=== PATIENT | male | born 1960 | race Caucasian/White ===

== ENCOUNTER 2016-06-08 22:46 | Emergency (ER) | payer SELFPAY ==
[~2016-06-08] VITALS: Ht 170.2 cm; Wt 81.6 kg
[2016-06-08] MEDS ORDERED: KETOROLAC TROMETHAMINE 30 MG/ML SYRINGE. IV ONE (23:00)
[2016-06-08] MEDS ORDERED: IV NORMAL SALINE 1000ML BAG 1,000 ML IV ONE (23:00)
[2016-06-08] MEDS ORDERED: ONDANSETRON PF 4 MG/2 ML VIAL. IV ONE (23:00)
[2016-06-08 23:03] VITALS: BP 145/80
[2016-06-08 23:07] LABS: BASO # 0.1 x10^3/uL (0.0-0.2); BASO % 1 % (0-3); EOS % 3 % (0-3); HEMATOCRIT 41.6 % (39.0-53.0); HEMOGLOBIN 13.7 g/dL (13.0-17.5); LYMPH # 2.7 x10^3/uL (1.0-4.8); LYMPH % 32 % (24-48); MEAN CORPUSCULAR HEMOGLOBIN 31 pg (25-35); MEAN CORPUSCULAR HGB CONC 33 g/dL (31-37); MEAN CORPUSCULAR VOLUME 93 fL (79-100); MONO % 13 % (0-9); NEUT % 51 % (31-73); PLATELET COUNT 195 x10^3/uL (140-400); RED BLOOD COUNT 4.47 x10^6/uL (4.30-5.70); WHITE BLOOD COUNT 8.6 x10^3/uL (4.0-11.0)
[2016-06-08 23:18] LABS: CALCIUM 8.6 mg/dL (8.5-10.1); CREATININE 1.1 mg/dL (0.7-1.3); GFR 69.2; POTASSIUM 3.6 mmol/L (3.5-5.1)
--- NOTE | 2016-06-08 23:38 | PHYS DOC ---
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 EMS was notified and administered a full aspirin and a nitroglycerin and his symptoms are improved significantly. He states he has had a cardiac workup before but has not been done recently. He denies taking any medications. He is a previous smoker. Currently he denies any complaints. Review of Systems Review of Systems Constitutional: Denies fever or chills [] Eyes: Denies change in visual acuity, redness, or eye pain [] HENT: Denies nasal congestion or sore throat [] Respiratory: Denies cough or shortness of breath [] Cardiovascular: No additional information not addressed in HPI [] GI: Denies abdominal pain, nausea, vomiting, bloody stools or diarrhea [] : Denies dysuria or hematuria [] Musculoskeletal: Denies back pain or joint pain [] Integument: Denies rash or skin lesions [] Neurologic: Denies headache, focal weakness or sensory changes [] Endocrine: Denies polyuria or polydipsia [] Current Medications Current Medications Current Medications Medications (Trade) Dose Ordered Sig/[facility] Start Time Stop Time Status Last Admin Dose Admin Ketorolac Tromethamine (Toradol) 30 mg 1X ONCE 06/08/16 23:00 06/08/16 23:01 UNV Ondansetron HCl (Zofran) 4 mg 1X ONCE 06/08/16 23:00 06/08/16 23:01 UNV Sodium Chloride (Iv Sodium Chloride 0.9% 1000ml Bag) 1,000 ml @ 1,000 mls/hr 1X ONCE 06/08/16 23:00 06/08/16 23:59 UNV Allergies Allergies Allergies Coded Allergies Type Severity Reaction Last Updated Verified codeine Allergy Severe hives 04/27/13 Yes Physical Exam Physical Exam Constitutional: Well developed, well nourished, no acute distress, non-toxic appearance. [] HENT: Normocephalic, atraumatic, bilateral external ears normal, oropharynx moist, no oral exudates, nose normal. [] Eyes: PERRLA, EOMI, conjunctiva normal, no discharge. [] Neck: Normal range of motion, no tenderness, supple, no stridor. [] Cardiovascular:Heart rate regular rhythm, no murmur [] Lungs & Thorax: Bilateral breath sounds clear to auscultation [] Abdomen: Bowel sounds normal, soft, no tenderness, no masses, no pulsatile masses. [] Skin: Warm, dry, no erythema, no rash. [] Back: No tenderness, no CVA tenderness. [] Extremities: No tenderness, no cyanosis, no clubbing, ROM intact, no edema. [] Neurologic: Alert and oriented X 3, normal motor function, normal sensory function, no focal deficits noted. [] Psychologic: Affect normal, judgement normal, mood normal. [] Current Patient Data Vital Signs Vital Signs Date Time Temp Pulse Resp B/P Pulse Ox O2 Delivery O2 Flow Rate FiO2 06/08/16 23:03 97.9 67 20 145/80 96 Room Air 97.9 Lab Values Laboratory Tests Test 06/08/16 22:57 06/09/16 01:49 White Blood Count 8.6x10^3/uL (4.0-11.0) Red Blood Count 4.47x10^6/uL (4.30-5.70) Hemoglobin 13.7g/dL (13.0-17.5) Hematocrit 41.6% (39.0-53.0) Mean Corpuscular Volume 93fL (79-100) Mean Corpuscular Hemoglobin 31pg (25-35) Mean Corpuscular Hemoglobin Concent 33g/dL (31-37) Red Cell Distribution Width 13.0% (11.5-14.5) Platelet Count 195x10^3/uL (140-400) Neutrophils (%) (Auto) 51% (31-73) Lymphocytes (%) (Auto) 32% (24-48) Monocytes (%) (Auto) 13% (0-9) H Eosinophils (%) (Auto) 3% (0-3) Basophils (%) (Auto) 1% (0-3) Neutrophils # (Auto) 4.4x10^3uL (1.8-7.7) Lymphocytes # (Auto) 2.7x10^3/uL (1.0-4.8) Monocytes # (Auto) 1.1x10^3/uL (0.0-1.1) Eosinophils # (Auto) 0.2x10^3/uL (0.0-0.7) Basophils # (Auto) 0.1x10^3/uL (0.0-0.2) Sodium Level 142mmol/L (136-145) Potassium Level 3.6mmol/L (3.5-5.1) Chloride Level 107mmol/L (98-107) Carbon Dioxide Level 29mmol/L (21-32) Anion Gap 6 (6-14) Blood Urea Nitrogen 13mg/dL (8-26) Creatinine 1.1mg/dL (0.7-1.3) Estimated GFR (Cockcroft-Gault) 69.2 Glucose Level 99mg/dL (70-99) Calcium Level 8.6mg/dL (8.5-10.1) Troponin I Quantitative < 0.017ng/mL (0.000-0.055) POC Troponin I 0.00ng/ml (<0.08) Laboratory Tests 06/08/16 22:57 Laboratory Tests 06/08/16 22:57 EKG EKG EKG as interpreted by me shows a sinus rhythm rhythm with a rate of 68 bpm. There are no acute ST findings. Radiology/Procedures Radiology/Procedures One view of the chest as interpreted by me does not demonstrate an acute cardiopulmonary process. Course & Med Decision Making Course & Med Decision Making Pertinent Labs and Imaging studies reviewed. (See chart for details) This 56-year-old male continues to be chest pain-free in the department. Because his symptoms are resolved with the nitroglycerin dose I offered the patient admission for continued chest pain workup. Patient is declining this admission at this time. Patient is willing to stay for 2 sets of cardiac enzymes. The second cardiac enzyme panel will be drawn at approximately 0100. If negative, I'll be discharging him home with strict instructions to follow-up with cardiology clinic in the next several days to have his routine stress test and return if he develops any worsening of his chest pain. Patient is acknowledging the risks of going home and not receiving the full workup. Patient was observed in the department for approximately 4 hours and had no return of his symptoms. A second set of cardiac enzymes was negative. I discussed the need for the patient to obtain outpatient stress test in the next several days. He is very agreeable to this. He will be discharged without incident. Dione Disclaimer Dione Disclaimer This electronic medical record was generated, in whole or in part, using a voice recognition dictation system. Departure Departure Impression: Primary Impression: Chest pain Disposition: HOME, SELF-CARE Admitting Physician: Other Condition: STABLE Referrals: NO PCP (PCP) Patient Instructions: Chest Pain (Nonspecific), [id number] Additional Instructions: Please follow up with the cardiology clinic at [phone] in the morning to schedule a stress test. Return to the ER if you develop any worsening of your chest pain or if it should return. MAURI STEVEN DO Jun 08, 2016 23:39
--- NOTE | 2016-06-09 07:00 | EKG ---
[facility] [address] [place] [address] Test Date: 2016-06-08 Test Time: 22:51:02 Pat Name: SAM WATTERS Department: Room: Gender: M [employer]: : 1960 Requested By: MAURI STEVEN Order Number: [id number] Reading MD: Measurements Intervals [place] Rate: 68 P: WA: QRS: 12 QRSD: 90 T: 4 QT: 412 QTc: 438 Interpretive Statements IRREGULAR RHYTHM, NO P-WAVE FOUND QRS(T) CONTOUR ABNORMALITY CONSIDER ANTEROLATERAL MYOCARDIAL DAMAGE POSSIBLY ABNORMAL ECG RI6.01 No previous ECG available for comparison
--- NOTE | 2016-06-09 09:16 | RAD ---
INDICATION: chest pain COMPARISON: 02/10/2009 FINDINGS: Single view of chest obtained. No focal airspace consolidation. Mediastinal contour is unremarkable. No gross osseous destructive lesion. IMPRESSION: No focal airspace consolidation or edema.
== END 2016-06-09 02:12 | disposition home or self-care (01) ==
LOC: ER 22:46
DX: R07.89 Other chest pain (principal); R42 Dizziness and giddiness; E11.9 Type 2 diabetes mellitus without complications; F17.200 Nicotine dependence, unspecified, uncomplicated; Z86.19 Personal history of other infectious and parasitic diseases; Z88.5 Allergy status to narcotic agent
CPT/HCPCS: 36415; 71010; 80048; 84484; 85027; 93005; 99285-25

== ENCOUNTER 2017-03-10 19:33 | Emergency (ER) | payer SELFPAY ==
[~2017-03-10] VITALS: Ht 170.2 cm; Wt 81.6 kg
[2017-03-10] MEDS ORDERED: IV NORMAL SALINE 1000ML BAG 1,000 ML IV ONE (20:00)
[2017-03-10] MEDS ORDERED: ONDANSETRON PF 4 MG/2 ML VIAL. IV ONE (20:00)
--- NOTE | 2017-03-10 20:07 | PHYS DOC ---
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 Patient denies any fever or hematemesis. He is also complaining of dental abscess on the right upper gum that he noted this morning. Denies any trismus. Patient's also complaining of low back pain rated as mild described as throbbing that also began yesterday. Denies pain radiating to bilateral lower extremities. Denies any loss of bowel bladder function, denies any injury. Denies any urgency frequency or hematuria. Review of Systems Review of Systems Constitutional: See history of present illness Eyes: Denies change in visual acuity, redness, or eye pain [] HENT: Reports right upper gum dental abscess. Denies nasal congestion or sore throat [] Respiratory: Denies cough or shortness of breath [] Cardiovascular: No additional information not addressed in HPI [] GI: Nausea and vomiting. Denies abdominal pain, bloody stools or diarrhea [] : Denies dysuria or hematuria [] Musculoskeletal: Denies back pain or joint pain [] Integument: Denies rash or skin lesions [] Neurologic: Denies headache, focal weakness or sensory changes [] All other systems were reviewed and found to be within normal limits, except as documented in this note. Current Medications Current Medications Current Medications Medications (Trade) Dose Ordered Sig/Kristy Start Time Stop Time Status Last Admin Dose Admin Ceftriaxone Sodium 50 ml @ 100 mls/hr 1X ONCE 03/10/17 20:00 03/10/17 20:29 DC 03/10/17 20:44 100 MLS/HR Ondansetron HCl (Zofran) 4 mg 1X ONCE 03/10/17 20:00 03/10/17 20:01 DC 03/10/17 20:44 4 MG Sodium Chloride 1,000 ml @ 1,000 mls/hr 1X ONCE 03/10/17 20:00 03/10/17 20:59 DC 03/10/17 20:43 1,000 MLS/HR Allergies Allergies Allergies Coded Allergies Type Severity Reaction Last Updated Verified codeine Allergy Severe hives 04/27/13 Yes Physical Exam Physical Exam Constitutional: Well developed, well nourished, no acute distress, non-toxic appearance. [] HENT: Normocephalic, atraumatic, bilateral external ears normal, oropharynx moist, no oral exudates, nose normal. [] Obvious swelling noted on the right upper cheek. Missing multiple teeth. Gum on the right upper molars and premolars is swollen. There are approx. 3 broken teeth left on the upper right gum. There is gum erythema, this no fluctuance to the gum. Eyes: PERRLA, EOMI, conjunctiva normal, no discharge. [] Neck: Normal range of motion, no tenderness, supple, no stridor. [] Cardiovascular:Heart rate regular rhythm, no murmur [] Lungs & Thorax: Bilateral breath sounds clear to auscultation [] Abdomen: Bowel sounds normal, soft, no tenderness, no masses, no pulsatile masses. [] Skin: Warm, dry, no erythema, no rash. [] Back: No tenderness, no CVA tenderness. [] Extremities: No tenderness, no cyanosis, no clubbing, ROM intact, no edema. [] Neurologic: Alert and oriented X 3, normal motor function, normal sensory function, no focal deficits noted. [] Psychologic: Affect normal, judgement normal, mood normal. [] Current Patient Data Vital Signs Vital Signs Date Time Temp Pulse Resp B/P (MAP) Pulse Ox O2 Delivery O2 Flow Rate FiO2 03/10/17 21:17 18 18 163/85 (111) 98 Room Air 03/10/17 19:43 98.3 98.3 Lab Values Laboratory Tests Test 03/10/17 20:10 03/10/17 20:33 Urine Collection Type Unknown Urine Color Yellow Urine Clarity Cloudy Urine pH 6.5 Urine Specific [place] 1.020 Urine Protein Negative mg/dL (NEG-TRACE) Urine Glucose (UA) Negative mg/dL (NEG) Urine Ketones (Stick) Trace mg/dL (NEG) Urine Blood Negative (NEG) Urine Nitrite Negative (NEG) Urine Bilirubin Negative (NEG) Urine Urobilinogen Dipstick 1.0 mg/dL (0.2 mg/dL) Urine Leukocyte Esterase Trace (NEG) Urine RBC 3-5 /HPF (0-2) Urine WBC Occ /HPF (0-4) Urine Squamous Epithelial Cells Few /LPF Urine Bacteria Few /HPF (0-FEW) Urine Mucus Mod /LPF White Blood Count 17.3 x10^3/uL (4.0-11.0) H Red Blood Count 5.23 x10^6/uL (4.30-5.70) Hemoglobin 16.0 g/dL (13.0-17.5) Hematocrit 47.9 % (39.0-53.0) Mean Corpuscular Volume 92 fL (79-100) Mean Corpuscular Hemoglobin 31 pg (25-35) Mean Corpuscular Hemoglobin Concent 34 g/dL (31-37) Red Cell Distribution Width 13.4 % (11.5-14.5) Platelet Count 250 x10^3/uL (140-400) Neutrophils (%) (Auto) 82 % (31-73) H Lymphocytes (%) (Auto) 9 % (24-48) L Monocytes (%) (Auto) 9 % (0-9) Eosinophils (%) (Auto) 0 % (0-3) Basophils (%) (Auto) 1 % (0-3) Neutrophils # (Auto) 14.2 x10^3uL (1.8-7.7) H Lymphocytes # (Auto) 1.5 x10^3/uL (1.0-4.8) Monocytes # (Auto) 1.5 x10^3/uL (0.0-1.1) H Eosinophils # (Auto) 0.0 x10^3/uL (0.0-0.7) Basophils # (Auto) 0.1 x10^3/uL (0.0-0.2) Sodium Level 137 mmol/L (136-145) Potassium Level 3.6 mmol/L (3.5-5.1) Chloride Level 101 mmol/L (98-107) Carbon Dioxide Level 28 mmol/L (21-32) Anion Gap 8 (6-14) Blood Urea Nitrogen 13 mg/dL (8-26) Creatinine 1.0 mg/dL (0.7-1.3) Estimated GFR (Cockcroft-Gault) 77.3 BUN/Creatinine Ratio 13 (6-20) Glucose Level 102 mg/dL (70-99) H Calcium Level 9.5 mg/dL (8.5-10.1) Total Bilirubin 0.8 mg/dL (0.2-1.0) Aspartate Amino Transferase (AST) 22 U/L (15-37) Alanine Aminotransferase (ALT) 38 U/L (16-63) Alkaline Phosphatase 157 U/L (46-116) H Total Protein 8.2 g/dL (6.4-8.2) Albumin 3.7 g/dL (3.4-5.0) Albumin/Globulin Ratio 0.8 (1.0-1.7) L Lipase 58 U/L (73-393) L Laboratory Tests 03/10/17 20:33 Laboratory Tests 03/10/17 20:33 EKG EKG [] Radiology/Procedures Radiology/Procedures [] Course & Med Decision Making Course & Med Decision Making Pertinent Labs and Imaging studies reviewed. (See chart for details) Patient is in the ED with nausea vomiting as well as a dental abscess. CBC was 17.3 with a left shift which I believe is coming from the dental abscess, patient has no abdominal pain. CMP with nothing really acute. Discharged with amoxicillin for 10 days. He is also complaining of low back pain. Urine analysis is negative for any acute findings. Discharged with cyclobenzaprine. Follow-up with PCP in 1-2 weeks. Dragon Disclaimer Dragon Disclaimer This electronic medical record was generated, in whole or in part, using a voice recognition dictation system. Departure Departure Impression: Primary Impression: Dental abscess Additional Impression: Nausea and vomiting Disposition: 01 HOME, SELF-CARE Condition: STABLE Referrals: NO PCP (PCP) Follow-up with your dentist as well as a primary care doctor as soon as possible Patient Instructions: Dental Abscess, Nausea and Vomiting, [id number] Additional Instructions: You were seen with nausea vomiting which is likely viral. You also have a dental abscess. Take the prescribed antibiotics until completed. Follow-up with a dentist as soon as possible. Follow-up with your primary care doctor as soon as possible. Take the prescribed medicine for your back pain as needed. Do not drive on the cyclobenzaprine. Follow-up with the primary care doctor for back pain. Scripts Cyclobenzaprine Hcl (CYCLOBENZAPRINE HCL) 10 Mg Tablet 1 TAB PO TID, #30 TAB Prov: ARCHIEAJOEY APRN 03/10/17 Ondansetron (ZOFRAN ODT) 4 Mg Tab.rapdis 1 TAB SL Q8HRS, #15 TAB Prov: JOEY MANCUSO AGATA 03/10/17 Problem Qualifiers Additional Impression: Nausea and vomiting Vomiting type: unspecified Vomiting Intractability: non-intractable Qualified Codes: R11.2 - Nausea with vomiting, unspecified JOEY MANCUSO NUMEROLOGIST Mar 10, 2017 20:07
[2017-03-10 20:16] LABS: BILIRUBIN,URINE NEGATIVE (NEG); GLUCOSE,URINE NEGATIVE (NEG); NITRITE,URINE NEGATIVE (NEG); PH,URINE 6.5; PROTEIN,URINE NEGATIVE (NEG-TRACE)
[2017-03-10 20:31] LABS: BACTERIA,URINE FEW /HPF (0-FEW); SQUAMOUS EPITHELIAL CELL,UR FEW /LPF; WBC,URINE OCC /HPF (0-4)
[2017-03-10 20:45] LABS: BASO # 0.1 x10^3/uL (0.0-0.2); BASO % 1 % (0-3); EOS % 0 % (0-3); HEMATOCRIT 47.9 % (39.0-53.0); LYMPH # 1.5 x10^3/uL (1.0-4.8); LYMPH % 9 % (24-48); MEAN CORPUSCULAR HEMOGLOBIN 31 pg (25-35); MEAN CORPUSCULAR HGB CONC 34 g/dL (31-37); MEAN CORPUSCULAR VOLUME 92 fL (79-100); MONO % 9 % (0-9); NEUT % 82 % (31-73); PLATELET COUNT 250 x10^3/uL (140-400); RED BLOOD COUNT 5.23 x10^6/uL (4.30-5.70); RED CELL DISTRIBUTION WIDTH 13.4 % (11.5-14.5); WHITE BLOOD COUNT 17.3 x10^3/uL (4.0-11.0)
[2017-03-10 20:53] LABS: CALCIUM 9.5 mg/dL (8.5-10.1); GFR 77.3; POTASSIUM 3.6 mmol/L (3.5-5.1)
[2017-03-10 20:59] LABS: ALBUMIN 3.7 g/dL (3.4-5.0); ALBUMIN/GLOBULIN RATIO 0.8 (1.0-1.7); TOTAL BILIRUBIN 0.8 mg/dL (0.2-1.0); TOTAL PROTEIN 8.2 g/dL (6.4-8.2)
[2017-03-10 21:17] VITALS: BP 163/85
[2017-03-10] MEDS ORDERED: CYCL10TA2 PO (22:03)
[2017-03-10] MEDS ORDERED: ONDA4TAB10 SL (22:03)
== END 2017-03-10 22:13 | disposition home or self-care (01) ==
LOC: ER 19:33
DX: R11.2 Nausea with vomiting, unspecified (principal); K04.7 Periapical abscess without sinus; K05.219 Aggressive periodontitis, localized, unspecified severity; M54.5 Low back pain; E11.9 Type 2 diabetes mellitus without complications; Z88.5 Allergy status to narcotic agent
CPT/HCPCS: 36415; 80053; 81001; 83690; 85025; 87086; 96365; 96366; 96375; 99285; J0690; J2405; J7030

== ENCOUNTER 2017-05-17 09:00 | Emergency (ER) | payer SELFPAY | END 2017-05-17 09:58 | disposition home or self-care (01) | LOC: ER 09:00 | DX: M54.31 Sciatica, right side (principal); E11.9 Type 2 diabetes mellitus without complications; Z88.5 Allergy status to narcotic agent; Z86.19 Personal history of other infectious and parasitic diseases; W01.0XXA Fall on same level from slipping, tripping and stumbling without subsequent striking against object, initial encounter; Y93.89 Activity, other specified; Y92.89 Other specified places as the place of occurrence of the external cause; Y99.8 Other external cause status | CPT/HCPCS: 73502; 99284 ==

== ENCOUNTER 2017-10-15 23:20 | Emergency (ER) | payer SELFPAY ==
[2017-10-16 00:01] LABS: ADD MAN DIFF? NO
[2017-10-16 00:02] LABS: BASO # 0.1 x10^3/uL (0.0-0.2); BASO % 1 % (0-3); EOS # 0.3 x10^3/uL (0.0-0.7); EOS % 3 % (0-3); HEMATOCRIT 42.3 % (39.0-53.0); HEMOGLOBIN 14.8 g/dL (13.0-17.5); LYMPH % 34 % (24-48); MEAN CORPUSCULAR HEMOGLOBIN 32 pg (25-35); MEAN CORPUSCULAR HGB CONC 35 g/dL (31-37); MEAN CORPUSCULAR VOLUME 91 fL (79-100); MONO # 1.1 x10^3/uL (0.0-1.1); MONO % 13 % (0-9); NEUT # 4.3 x10^3uL (1.8-7.7); NEUT % 49 % (31-73); PLATELET COUNT 222 x10^3/uL (140-400); RED BLOOD COUNT 4.65 x10^6/uL (4.30-5.70); RED CELL DISTRIBUTION WIDTH 13.3 % (11.5-14.5); WHITE BLOOD COUNT 8.8 x10^3/uL (4.0-11.0)
[2017-10-16] MEDS: IPRATRPIUM/ALBUTEROL 0.5/2.5MG 3 ML NEBU. NEB (00:05)
[2017-10-16 00:11] LABS: ANION GAP 6 (6-14); BLOOD UREA NITROGEN 17 mg/dL (8-26); BUN/CREATININE RATIO 15 (6-20); CALCIUM 8.9 mg/dL (8.5-10.1); CARBON DIOXIDE 25 mmol/L (21-32); CHLORIDE 103 mmol/L (98-107); CREATININE 1.1 mg/dL (0.7-1.3); GLUCOSE 112 mg/dL (70-99); POTASSIUM 3.6 mmol/L (3.5-5.1); SODIUM 134 mmol/L (136-145)
[2017-10-16 00:17] LABS: ALBUMIN 3.7 g/dL (3.4-5.0); ALK PHOS 147 U/L (46-116); ALT (SGPT) 42 U/L (16-63); AST (SGOT) 23 U/L (15-37); TOTAL BILIRUBIN 0.2 mg/dL (0.2-1.0); TOTAL PROTEIN 7.3 g/dL (6.4-8.2)
[2017-10-16 00:18] LABS: TROPONINI < 0.017 ng/mL (0.000-0.055)
[2017-10-16 00:23] LABS: NT-PRO BNP 29 pg/mL (0-124)
== END 2017-10-16 01:55 | disposition home or self-care (01) ==
LOC: ER 23:20
DX: R06.02 Shortness of breath (principal); R63.1 Polydipsia; R35.0 Frequency of micturition; E11.9 Type 2 diabetes mellitus without complications; Z87.891 Personal history of nicotine dependence; Z88.5 Allergy status to narcotic agent
CPT/HCPCS: 36415; 71045; 80053; 83880; 84484; 85025; 93005; 94640; 99285-25; J7620

== ENCOUNTER 2017-11-25 19:59 | Emergency (ER) | payer SELFPAY ==
[2017-11-25 20:31] LABS: ADD MAN DIFF? NO
[2017-11-25] MEDS: IV NORMAL SALINE 1000ML BAG 1,000 ML IV (20:31)
[2017-11-25 20:32] LABS: BASO # 0.1 x10^3/uL (0.0-0.2); BASO % 1 % (0-3); EOS % 0 % (0-3); HEMATOCRIT 49.7 % (39.0-53.0); LYMPH # 1.6 x10^3/uL (1.0-4.8); LYMPH % 25 % (24-48); MEAN CORPUSCULAR HEMOGLOBIN 31 pg (25-35); MEAN CORPUSCULAR HGB CONC 34 g/dL (31-37); MEAN CORPUSCULAR VOLUME 90 fL (79-100); MONO # 0.8 x10^3/uL (0.0-1.1); MONO % 12 % (0-9); NEUT % 62 % (31-73); PLATELET COUNT 112 x10^3/uL (140-400); RED CELL DISTRIBUTION WIDTH 13.7 % (11.5-14.5); WHITE BLOOD COUNT 6.4 x10^3/uL (4.0-11.0)
[2017-11-25] MEDS: KETOROLAC 30 MG/ML INJ. IV (20:32)
[2017-11-25] MEDS: PANTOPRAZOLE IV PUSH 40 MG VIAL. IVP (20:32)
[2017-11-25] MEDS: ONDANSETRON PF 4 MG/2 ML VIAL. IV (20:32)
[2017-11-25 20:41] LABS: BILIRUBIN,URINE SMALL (NEG); CLARITY,URINE CLEAR; COLOR,URINE AMBER; GLUCOSE,URINE NEGATIVE (NEG); NITRITE,URINE NEGATIVE (NEG); PROTEIN,URINE 30 mg/dL (NEG-TRACE); UROBILINOGEN,URINE 0.2 mg/dL (0.2 mg/dL)
[2017-11-25 20:43] LABS: ANION GAP 10 (6-14); BARBITURATES NEG (NEG); BENZODIAZEPINES NEG (NEG); BLOOD UREA NITROGEN 17 mg/dL (8-26); BUN/CREATININE RATIO 10 (6-20); CALCIUM 8.8 mg/dL (8.5-10.1); CANNABINOIDS NEG (NEG); CARBON DIOXIDE 27 mmol/L (21-32); CHLORIDE 105 mmol/L (98-107); COCAINE NEG (NEG); CREATININE 1.7 mg/dL (0.7-1.3); GFR 41.8; GLUCOSE 96 mg/dL (70-99); METHADONE NEG (NEG); OPIATES NEG (NEG); PHENCYCLIDINE NEG (NEG); POTASSIUM 3.8 mmol/L (3.5-5.1); SODIUM 142 mmol/L (136-145)
[2017-11-25 20:44] LABS: AMPHETAMINE/METHAMPHETAMINE NEG (NEG); BACTERIA,URINE 0 /HPF (0-FEW); ETHANOL, URINE NEG (NEG); HYALINE CASTS, URINE MODERATE /HPF; RBC,URINE 0 /HPF (0-2); WBC,URINE OCC /HPF (0-4)
[2017-11-25 20:47] LABS: ETHANOL < 10 mg/dL (0-10)
[2017-11-25 20:49] LABS: ALBUMIN 4.3 g/dL (3.4-5.0); ALBUMIN/GLOBULIN RATIO 1.1 (1.0-1.7); ALK PHOS 147 U/L (46-116); ALT (SGPT) 47 U/L (16-63); AST (SGOT) 33 U/L (15-37); LIPASE 108 U/L (73-393); TOTAL BILIRUBIN 0.5 mg/dL (0.2-1.0); TOTAL PROTEIN 8.2 g/dL (6.4-8.2)
[2017-11-25 21:29] LABS: AGAP ISTAT 13 mmol/L (6-14); BUN ISTAT 17 mg/dL (8-26); CHLORIDE ISTAT 108 mmol/L (98-110); CREATININE ISTAT 1.4 mg/dL (0.5-1.4); GLUCOSE ISTAT 98 mg/dL (70-99); HEMATOCRIT ISTAT 38 % (37-52); HEMOGLOBIN ISTAT 12.9 g/dL (14-18); ION CA ISTAT 1.08 mmol/L (1.13-1.32); SODIUM ISTAT 143 mmol/L (135-145); TOT CO2 ISTAT 28 mmol/L (23-32)
== END 2017-11-25 23:21 | disposition home or self-care (01) ==
LOC: ER 19:59
DX: R11.2 Nausea with vomiting, unspecified (principal); R19.7 Diarrhea, unspecified; R10.84 Generalized abdominal pain; E11.9 Type 2 diabetes mellitus without complications; Z89.022 Acquired absence of left finger(s); Z88.5 Allergy status to narcotic agent
CPT/HCPCS: 36415; 76700; 80047; 80053; 80307; 81001; 83690; 85025; 96361; 96374; 96375; 99285-25; C9113; G0480; J1885; J2405; J7030

== ENCOUNTER 2018-11-25 16:47 | Emergency (ER) | payer SELFPAY ==
[~2018-11-25] VITALS: Ht 170.2 cm; Wt 77.1 kg
[~2018-11-25 16:47] MED LIST: CYCL10TA2 PO; DICY20TA3 PO; METH4TAB2 PO; ONDA4TAB10 SL
[2018-11-25] MEDS ORDERED: FLUORESCEIN OPHTH TEST STRIP. OD ONE (17:15)
[2018-11-25] MEDS ORDERED: TETRACAINE 0.5% OPHTH SOLUTION 4ML BOTTLE. OD ONE (17:15)
--- NOTE | 2018-11-25 17:58 | PHYS DOC ---
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 Denies any vision loss. (JOEY MANCUSO APRN) Review of Systems Review of Systems Constitutional: Denies fever or chills [] Eyes: Reports foreign object to the right eye. Denies change in visual acuity, redness, or eye pain [] Musculoskeletal: Denies back pain or joint pain [] Integument: Denies rash or skin lesions [] Neurologic: Denies headache, focal weakness or sensory changes [] All other systems were reviewed and found to be within normal limits, except as documented in this note. (JOEY MANCUSO APRN) Current Medications Current Medications Current Medications Medications (Trade) Dose Ordered Sig/Kristy Start Time Stop Time Status Last Admin Dose Admin Fluorescein Sodium (Ful-Ngozi) 1 strip 1X ONCE 11/25/18 17:15 11/25/18 17:16 DC 11/25/18 17:30 1 STRIP Tetracaine HCl (Tetracaine) 1 drop 1X ONCE 11/25/18 17:15 11/25/18 17:16 DC 11/24/18 17:30 1 DROP (TRUPTI JUARES MD) Allergies Allergies Allergies Coded Allergies Type Severity Reaction Last Updated Verified codeine Allergy Severe hives 04/27/13 Yes (TRUPTI JUARES MD) Physical Exam Physical Exam Constitutional: Well developed, well nourished, no acute distress, non-toxic appearance. [] Eyes: PERRLA, EOMI, right conjunctiva with no obvious foreign object, it appears slightly injected probably from itching. There is mud on the exterior aspect of the right eye.The mud was removed by me, patient was placed under the eye rinse for a couple minutes. Right eye exam under christopher lamp. Right eye was numbed with tetracaine and stained with fluorescein. No foreign object was found, no corneal abrasion. Back: No tenderness, no CVA tenderness. [] Extremities: No tenderness, no cyanosis, no clubbing, ROM intact, no edema. [] Neurologic: Alert and oriented X 3, normal motor function, normal sensory function, no focal deficits noted. [] Psychologic: Affect normal, judgement normal, mood normal. [] (JOEY MANCUSO APRN) Current Patient Data Vital Signs Vital Signs Date Time Temp Pulse Resp B/P (MAP) Pulse Ox O2 Delivery O2 Flow Rate FiO2 11/25/18 18:17 98.3 90 16 150/87 (108) 97 Room Air 98.3 (TRUPTI JUARES MD) EKG EKG [] (JOEY MANCUSO APRN) Radiology/Procedures Radiology/Procedures [] (JOEY MANCUSO APRN) Course & Med Decision Making Course & Med Decision Making Pertinent Labs and Imaging studies reviewed. (See chart for details) This is a 58-year-old male patient who presents to the ED today complaining of possible foreign object to the right eye, he was removing his boot when a po ssible foreign object likely mud flew into his right eye. On arrival to the ED he did have a couple pieces of mud around his exterior eye. They were removed by me. The eye was rinsed for a couple minutes. The eye was stained and evaluated under christopher lamp, no foreign object was found on abrasions. Patient feeling better. Discharged to home. 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 (JOEY MANCUSO APRN) Course & Med Decision Making Staff Physician Addendum: I was working in the ER during the course of this patient's visit. I was available for consultation as needed, but I was not directly involved in the care of this patient. (TRUPTI JUARES MD) Dragon Disclaimer Dragon Disclaimer This electronic medical record was generated, in whole or in part, using a voice recognition dictation system. (JOEY MANCUSO APRN) Departure Departure Impression: Primary Impression: Foreign body, eye Disposition: HOME, SELF-CARE Condition: STABLE Referrals: NO PCP (PCP) MILLY MIMS MD follow up in one week or sooner if need be Patient Instructions: Eye - Foreign Body Additional Instructions: You were evaluated in the emergency room, we did remove a couple pieces of mud from your right exterior eye. Please follow-up with school transportation supervisor as needed or if symptoms persist. Problem Qualifiers Primary Impression: Foreign body, eye Encounter type: initial encounter Laterality: right Qualified Codes: T15.91XA - Foreign body on external eye, part unspecified, right eye, initial encounter JOEY MANCUSO APRN Nov 25, 2018 17:58 TRUPTI JUARES MD Nov 27, 2018 00:45
[2018-11-25 18:17] VITALS: BP 150/87
== END 2018-11-25 18:26 | disposition home or self-care (01) ==
LOC: ER 16:47
DX: T15.91XA Foreign body on external eye, part unspecified, right eye, initial encounter (principal); E11.9 Type 2 diabetes mellitus without complications; I10 Essential (primary) hypertension; Z88.5 Allergy status to narcotic agent; X58.XXXA Exposure to other specified factors, initial encounter; Y93.89 Activity, other specified; Y92.69 Other specified industrial and construction area as the place of occurrence of the external cause; Y99.8 Other external cause status
CPT/HCPCS: 99283

== ENCOUNTER 2019-03-27 08:50 | Emergency (ER) | payer SELFPAY ==
[~2019-03-27] VITALS: Ht 170.2 cm; Wt 81.6 kg
[2019-03-27] MEDS ORDERED: TETRACAINE 0.5% OPHTH SOLUTION 4ML BOTTLE. OU ONE (09:00)
[2019-03-27] MEDS ORDERED: FLUORESCEIN OPHTH TEST STRIP. OU ONE (09:00)
[2019-03-27 09:03] VITALS: BP 149/83
[2019-03-27] MEDS ORDERED: ERYT1OIN6 OP (09:11)
--- NOTE | 2019-03-27 09:11 | PHYS DOC ---
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 Denies pain or visual loss but states the eye feels irritated. States his tetanus was 3 years ago. Review of Systems Review of Systems Constitutional: Denies fever or chills [] Eyes: Denies change in visual acuity, redness, or eye pain [] HENT: Denies nasal congestion or sore throat [] Respiratory: Denies cough or shortness of breath [] Cardiovascular: No additional information not addressed in HPI [] GI: Denies abdominal pain, nausea, vomiting, bloody stools or diarrhea [] : Denies dysuria or hematuria [] Musculoskeletal: Denies back pain or joint pain [] Integument: Denies rash or skin lesions [] Neurologic: Denies headache, focal weakness or sensory changes [] Endocrine: Denies polyuria or polydipsia [] All other systems were reviewed and found to be within normal limits, except as documented in this note. Current Medications Current Medications Current Medications Medications (Trade) Dose Ordered Sig/Kristy Start Time Stop Time Status Last Admin Dose Admin Fluorescein Sodium (Ful-Ngozi) 1 strip 1X ONCE 03/27/19 09:00 03/27/19 09:10 DC Tetracaine HCl (Tetracaine) 1 drop 1X ONCE 03/27/19 09:00 03/27/19 09:10 DC Allergies Allergies Allergies Coded Allergies Type Severity Reaction Last Updated Verified codeine Allergy Severe hives 04/27/13 Yes Physical Exam Physical Exam Constitutional: Well developed, well nourished, no acute distress, non-toxic appearance. [] HENT: Normocephalic, atraumatic, bilateral external ears normal, oropharynx moist, no oral exudates, nose normal. [] Eyes: PERRLA, EOMI, conjunctiva normal, no discharge. [] Neck: Normal range of motion, no tenderness, supple, no stridor. [] Cardiovascular:Heart rate regular rhythm, no murmur [] Lungs & Thorax: Bilateral breath sounds clear to auscultation [] Abdomen: Bowel sounds normal, soft, no tenderness, no masses, no pulsatile masses. [] Skin: Warm, dry, no erythema, no rash. [] Back: No tenderness, no CVA tenderness. [] Extremities: No tenderness, no cyanosis, no clubbing, ROM intact, no edema. [] Neurologic: Alert and oriented X 3, normal motor function, normal sensory function, no focal deficits noted. [] Psychologic: Affect normal, judgement normal, mood normal. [] Current Patient Data Vital Signs Vital Signs Date Time Temp Pulse Resp B/P (MAP) Pulse Ox O2 Delivery O2 Flow Rate FiO2 03/27/19 09:03 97.5 82 16 149/83 (105) 96 97.5 EKG EKG [] Radiology/Procedures Radiology/Procedures [] Course & Med Decision Making Course & Med Decision Making Eye is numbed with tetracaine ans stained with Fluorescein. Using a cotton swab I was unable to get the foreign body out of the eye as it is embedded. Patient states this has happened before and he has gone to the eye doctor and they get it out. Patient is given erythromycin ointment to apply to the eye. I have refe rred him to the [employer] mechanic. He is to call first thing tomorrow morning. Eye Exam w/ slit lamp: Visual Acuity: See Nursing Note Visual Whitman: Intact in all four quadrants bilaterally Lac ducts/glands: No swelling Lids w/ evertion: Normal, small brown foreign body to 7pm on iris Conj/Flom: red, negative Fluorescein/Clifford's Anterior Chamber: Clear Tonopen readings: Retina exam: No obvious abnormality Dragon Disclaimer Dragon Disclaimer This electronic medical record was generated, in whole or in part, using a voice recognition dictation system. Departure Departure Impression: Primary Impression: Foreign body, eye Additional Impression: Corneal abrasion Disposition: 01 HOME, SELF-CARE Condition: LEFT WITHOUT BEING SEEN Referrals: NO PCP (PCP) Mary Ann FULLER MD Patient Instructions: Eye - Corneal Abrasion, Eye - Foreign Body Additional Instructions: Use medication as prescribed. Always wear safety goggles. Follow up with eye doctor as soon as possible. Scripts Erythromycin Base (Erythromycin) 1 Gm Oint...g. 1 GM OP QID for 10 Days, #1 MISC Prov: AMANDA DIANA APRN 03/27/19 Problem Qualifiers Primary Impression: Foreign body, eye Encounter type: initial encounter Laterality: right Qualified Codes: T15.91XA - Foreign body on external eye, part unspecified, right eye, initial encounter Additional Impression: Corneal abrasion Encounter type: initial encounter Laterality: right Qualified Codes: S05.01XA - Injury of conjunctiva and corneal abrasion without foreign body, right eye, initial encounter AMANDA DIANA ABSTRACTER Mar 27, 2019 09:11
== END 2019-03-27 09:31 | disposition home or self-care (01) ==
LOC: ER 08:50
DX: T15.01XA Foreign body in cornea, right eye, initial encounter (principal); E11.9 Type 2 diabetes mellitus without complications; Z98.890 Other specified postprocedural states; Z88.5 Allergy status to narcotic agent; W45.8XXA Other foreign body or object entering through skin, initial encounter; Y93.89 Activity, other specified; Y92.89 Other specified places as the place of occurrence of the external cause; Y99.0 Civilian activity done for income or pay
CPT/HCPCS: 65222; 99284

== ENCOUNTER 2020-11-03 00:51 | Emergency (ER) | payer SELFPAY ==
[~2020-11-03] VITALS: Ht 170.2 cm; Wt 81.8 kg
[~2020-11-03 00:51] MED LIST changes: +ERYT1OIN6 OP
[2020-11-03] MEDS ORDERED: CEPHALEXIN 250 MG CAPSULE. PO ONE (02:45)
[2020-11-03 02:53] VITALS: BP 137/79
[2020-11-03] MEDS ORDERED: CEPH500T PO (02:56)
--- NOTE | 2020-11-03 02:56 | ED.ADGEN ---
Past Medical History Past Medical History: No Pertinent History Additional Past Medical Histor: HEP C Past Surgical History: Other Additional Past Surgical Histo: LEFT HAND TWO FINGERS AMPUTATED Smoking Status: Former Smoker Alcohol Use: None Drug Use: None General Adult EDM: Chief Complaint: KNEE SWELLING HPI: HPI: Patient is a 60 year old male coming in for redness and tenderness on his right lower leg. Patient states that started the lateral part of his knee to couple days ago and has been spreading. Denies any systemic complaints. Denies any wounds to the area. Says the area is tender to the touch and not pruritic. Denies any past medical history Review of Systems: Review of Systems: All other systems within normal limits except for as noted in the HPI Current Medications: Current Medications Medications (Trade) Dose Ordered Sig/Kristy Start Time Stop Time Status Last Admin Dose Admin Cephalexin HCl (Keflex) 500 mg 1X ONCE 11/03/20 02:45 11/03/20 02:46 DC Allergies: Allergies: Allergies Coded Allergies Type Severity Reaction Last Updated Verified codeine Allergy Severe hives 04/27/13 Yes Physical Exam: PE: Constitutional: Well developed, well nourished, no acute distress, non-toxic appearance. [] HENT: Normocephalic, atraumatic, bilateral external ears normal, nose normal. [] Eyes: PERRLA, conjunctiva normal, no discharge. [] Neck: No rigidity, supple, no stridor. [] Cardiovascular: Regular rate and rhythm, brisk cap refill [] Lungs & Thorax: Non labored symmetric respirations, no tachypnea or respiratory distress [] Abdomen: Soft, nondistended. Skin: Warm, dry, blanching erythema to right lateral knee,, scattered areas of erythema to right lower leg, no fluctuance or drainage Back: Unremarkable Extremities: No deformities, range of motion grossly intact, no lower extremity edema [] Neurologic: Alert and oriented X 3, no focal deficits noted. [] Psychologic: Affect normal, judgement normal, mood normal. [] Current Patient Data: Vital Signs: Vital Signs Date Time Temp Pulse Resp B/P (MAP) Pulse Ox O2 Delivery O2 Flow Rate FiO2 11/03/20 00:53 98 20 143/83 (103) 96 Room Air EKG: EKG: [] Heart Score: C/O Chest Pain: No Risk Factors: Risk Factors: DM, Current or recent (<one month) smoker, HTN, HLP, family history of CAD, obesity. Risk Scores: Score 0 - 3: 2.5% MACE over next 6 weeks - Discharge Home Score 4 - 6: 20.3% MACE over next 6 weeks - Admit for Clinical Observation Score 7 - 10: 72.7% MACE over next 6 weeks - Early Invasive Strategies Radiology/Procedures: Radiology/Procedures: [] Course & Med Decision Making: Course & Med Decision Making Pertinent Labs and Imaging studies reviewed. (See chart for details) [] Dragon Disclaimer: Dragon Disclaimer: This electronic medical record was generated, in whole or in part, using a voice recognition dictation system. Departure Departure Impression: Primary Impression: Cellulitis of right lower extremity Disposition: 01 HOME / SELF CARE / HOMELESS Condition: STABLE Referrals: NO PCP (PCP) Patient Instructions: Cellulitis Scripts Cephalexin (CEPHALEXIN) 500 Mg Tablet 1 TAB PO TID for antibiotic for 7 Days, #21 TAB Prov: FERNANDA TEIXEIRA MD 11/03/20 FERNANDA TEIXEIRA MD Nov 03, 2020 02:56
== END 2020-11-03 03:12 | disposition home or self-care (01) ==
LOC: ER 00:51
DX: L03.115 Cellulitis of right lower limb (principal); Z87.891 Personal history of nicotine dependence; Z88.5 Allergy status to narcotic agent
CPT/HCPCS: 99283

== ENCOUNTER 2020-11-13 21:20 | Emergency (ER) | payer SELFPAY ==
[~2020-11-13] VITALS: Ht 170.2 cm; Wt 78.7 kg
[~2020-11-13 21:20] MED LIST changes: +CEPH500T PO
[2020-11-13 21:25] VITALS: BP 144/98
[2020-11-13] MEDS ORDERED: CEPH500T PO (22:56)
--- NOTE | 2020-11-13 22:57 | PHYS DOC ---
Past Medical History Past Medical History: No Pertinent History Additional Past Medical Histor: HEP C, HYPOGLYCEMIA Past Surgical History: Other Additional Past Surgical Histo: LEFT HAND TWO FINGERS AMPUTATED Smoking Status: Former Smoker Alcohol Use: None Drug Use: None General Adult EDM: Chief Complaint: KNEE SWELLING HPI: HPI: Patient is a 60 year old male presents for evaluation of right knee swelling. Patient states the swelling started yesterday. Is located in his right knee. He denies any associated discomfort. Patient states he has a previous history of similar knee swelling that spread distally. Patient was evaluated here in the emergency department and placed on Keflex. Patient states after starting medications swelling completely resolved. On exam patient has full range of motion of his right knee. There is some mild swelling of his right knee right and the overlying skin feels warm to touch. Review of Systems: Review of Systems: Constitutional: Denies fever or chills. [] Eyes: Denies change in visual acuity. [] HENT: Denies nasal congestion or sore throat. [] Respiratory: Denies cough or shortness of breath. [] Cardiovascular: Denies chest pain or edema. [] GI: Denies abdominal pain, nausea, vomiting, bloody stools or diarrhea. [] : Denies dysuria. [] Musculoskeletal: Denies back pain positive joint pain. [] Integument: Denies rash. [] Neurologic: Denies headache, focal weakness or sensory changes. [] Endocrine: Denies polyuria or polydipsia. [] Lymphatic: Denies swollen glands. [] Psychiatric: Denies depression or anxiety. [] Heart Score: C/O Chest Pain: N/A Risk Factors: Risk Factors: DM, Current or recent (<one month) smoker, HTN, HLP, family history of CAD, obesity. Risk Scores: Score 0 - 3: 2.5% MACE over next 6 weeks - Discharge Home Score 4 - 6: 20.3% MACE over next 6 weeks - Admit for Clinical Observation Score 7 - 10: 72.7% MACE over next 6 weeks - Early Invasive Strategies Allergies: Allergies: Allergies Coded Allergies Type Severity Reaction Last Updated Verified codeine Allergy Severe hives 04/27/13 Yes Physical Exam: PE: Constitutional: Well developed, well nourished, no acute distress, non-toxic appearance. [] HENT: Normocephalic, atraumatic, bilateral external ears normal, oropharynx moist, no oral exudates, nose normal. [] Eyes: PERRLA, EOMI, conjunctiva normal, no discharge. [] Neck: Normal range of motion, no tenderness, supple, no stridor. [] Cardiovascular:Heart rate regular rhythm, no murmur [] Lungs & Thorax: Bilateral breath sounds clear to auscultation [] Abdomen: Bowel sounds normal, soft, no tenderness, no masses, no pulsatile masses. [] Skin: Warm, dry, no erythema, no rash. [] Back: No tenderness, no CVA tenderness. [] Extremities: No tenderness, no cyanosis, no clubbing, ROM intact, no edema. [minimal effusion right knee, full range of motion, overlying skin warm to touch] Neurologic: Alert and oriented X 3, normal motor function, normal sensory function, no focal deficits noted. [] Psychologic: Affect normal, judgement normal, mood normal. [] Current Patient Data: Vital Signs: Vital Signs Date Time Temp Pulse Resp B/P (MAP) Pulse Ox O2 Delivery O2 Flow Rate FiO2 11/13/20 21:25 98.0 100 18 144/98 (98) 95 Room Air 98.0 EKG: EKG: [] Radiology/Procedures: Radiology/Procedures: [] Course & Med Decision Making: Course & Med Decision Making Pertinent Labs and Imaging studies reviewed. (See chart for details) []Treated with keflex. Suspect bursitis. [place] in joint. Dione Disclaimer: Dione Disclaimer: This electronic medical record was generated, in whole or in part, using a voice recognition dictation system. Departure Departure Impression: Primary Impression: Knee bursitis Disposition: HOME / SELF CARE / HOMELESS Condition: STABLE Referrals: NO PCP (PCP) Patient Instructions: Knee Effusion Scripts Cephalexin (CEPHALEXIN) 500 Mg Tablet 1 TAB PO QID, #40 TAB Prov: CHRISTOS MOLINA DO 11/13/20 CHRISTOS MOLINA DO Nov 13, 2020 22:57
[2020-11-13] MEDS ORDERED: CEPHALEXIN 250 MG CAPSULE. PO ONE (23:30)
== END 2020-11-14 00:15 | disposition home or self-care (01) ==
LOC: ER 21:20
DX: M70.51 Other bursitis of knee, right knee (principal); Y93.89 Activity, other specified
CPT/HCPCS: 99283

== ENCOUNTER 2020-12-12 07:10 | Emergency (ER) | payer SELFPAY ==
[~2020-12-12] VITALS: Ht 170.2 cm; Wt 77.2 kg
--- NOTE | 2020-12-12 07:47 | PHYS DOC ---
Past Medical History Past Medical History: No Pertinent History Additional Past Medical Histor: HEP C, HYPOGLYCEMIA Past Surgical History: Other Additional Past Surgical Histo: LEFT HAND TWO FINGERS AMPUTATED Smoking Status: Former Smoker Alcohol Use: None Drug Use: None General Adult EDM: Chief Complaint: DIZZY/LIGHT HEADED HPI: HPI: Patient is a 60 year old male who present to ER for evaluation epigastric abdominal pain started 6 AM this morning. Patient had multiple episodes of vomiting, feeling nauseous then he became dizzy when he stood up. Patient denies any diarrhea. Patient also complained of some nonproductive cough, headache since waking up this morning. Patient had not been vaccinated for COVID-19. Patient is not sure if he been exposed to anybody with COVID-19 infection. Patient denies any chest pain, denies any trouble breathing. Review of Systems: Review of Systems: Constitutional: Denies fever or chills. [] Eyes: Denies change in visual acuity. [] HENT: Denies nasal congestion or sore throat. [] Respiratory: Positive for cough, no trouble breathing Cardiovascular: Denies chest pain or edema. [] GI: Positive for abdominal pain with nausea vomiting, no diarrhea. : Denies dysuria. [] Musculoskeletal: Denies back pain or joint pain. [] Integument: Denies rash. [] Neurologic: Denies headache, focal weakness or sensory changes. [] Endocrine: Denies polyuria or polydipsia. [] Lymphatic: Denies swollen glands. [] Psychiatric: Denies depression or anxiety. [] Heart Score: C/O Chest Pain: N/A Risk Factors: Risk Factors: DM, Current or recent (<one month) smoker, HTN, HLP, family history of CAD, obesity. Risk Scores: Score 0 - 3: 2.5% MACE over next 6 weeks - Discharge Home Score 4 - 6: 20.3% MACE over next 6 weeks - Admit for Clinical Observation Score 7 - 10: 72.7% MACE over next 6 weeks - Early Invasive Strategies Allergies: Allergies: Allergies Coded Allergies Type Severity Reaction Last Updated Verified codeine Allergy Severe hives 04/27/13 Yes Physical Exam: PE: Constitutional: Well developed, well nourished, no acute distress, non-toxic appearance. [] HENT: Normocephalic, atraumatic, bilateral external ears normal, oropharynx moist, no oral exudates, nose normal. [] Eyes: PERRLA, EOMI, conjunctiva normal, no discharge. [] Neck: Normal range of motion, no tenderness, supple, no stridor. [] Cardiovascular:Heart rate regular rhythm, no murmur [] Lungs & Thorax: Bilateral breath sounds clear to auscultation [] Abdomen: Bowel sounds normal, soft, there is tenderness in epigastric area, no masses, no pulsatile masses. [] Skin: Warm, dry, no erythema, no rash. [] Back: No tenderness, no CVA tenderness. [] Extremities: No tenderness, no cyanosis, no clubbing, ROM intact, no edema. [] Neurologic: Alert and oriented X 3, normal motor function, normal sensory function, no focal deficits noted. [] Psychologic: Affect normal, judgement normal, mood normal. [] Current Patient Data: Labs: Laboratory Tests Test 12/12/20 07:30 12/12/20 07:40 12/12/20 08:52 White Blood Count 7.2 x10^3/uL Red Blood Count 4.79 x10^6/uL Hemoglobin 15.0 g/dL Hematocrit 44.3 % Mean Corpuscular Volume 92 fL Mean Corpuscular Hemoglobin 31 pg Mean Corpuscular Hemoglobin Concent 34 g/dL Red Cell Distribution Width 13.7 % Platelet Count 182 x10^3/uL Neutrophils (%) (Auto) 69 % Lymphocytes (%) (Auto) 8 % Monocytes (%) (Auto) 23 % Eosinophils (%) (Auto) 0 % Basophils (%) (Auto) 1 % Neutrophils # (Auto) 4.9 x10^3/uL Lymphocytes # (Auto) 0.6 x10^3/uL Monocytes # (Auto) 1.6 x10^3/uL Eosinophils # (Auto) 0.0 x10^3/uL Basophils # (Auto) 0.1 x10^3/uL Platelet Estimate Pending Sodium Level 140 mmol/L Potassium Level 4.5 mmol/L Chloride Level 104 mmol/L Carbon Dioxide Level 28 mmol/L Anion Gap 8 Blood Urea Nitrogen 12 mg/dL Creatinine 1.1 mg/dL Estimated GFR (Cockcroft-Gault) 68.3 BUN/Creatinine Ratio 11 Glucose Level 104 mg/dL Calcium Level 8.7 mg/dL Magnesium Level 1.9 mg/dL Total Bilirubin 0.3 mg/dL Aspartate Amino Transf (AST/SGOT) 24 U/L Alanine Aminotransferase (ALT/SGPT) 42 U/L Alkaline Phosphatase 135 U/L Troponin I Quantitative < 0.017 ng/mL Total Protein 7.4 g/dL Albumin 3.8 g/dL Albumin/Globulin Ratio 1.1 Lipase 57 U/L Ethyl Alcohol Level < 10 mg/dL SARS-CoV-2 Antigen (Rapid) Positive Urine Collection Type Unknown Urine Color Yellow Urine Clarity Clear Urine pH 6.5 Urine Specific Proctor 1.020 Urine Protein Negative mg/dL Urine Glucose (UA) Negative mg/dL Urine Ketones (Stick) Negative mg/dL Urine Blood Negative Urine Nitrite Negative Urine Bilirubin Negative Urine Urobilinogen Dipstick 1.0 mg/dL Urine Leukocyte Esterase Negative Urine RBC 1-2 /HPF Urine WBC Occ /HPF Urine Squamous Epithelial Cells Occ /LPF Urine Bacteria 0 /HPF Current Medications Medications (Trade) Dose Ordered Sig/Kristy Route PRN Reason Start Time Stop Time Status Last Admin Dose Admin Iohexol (Omnipaque 300 Mg/ml) 75 ml 1X ONCE IV 12/12/20 09:00 12/12/20 09:01 DC 12/12/20 09:09 Info (CONTRAST GIVEN -- Rx MONITORING) 1 each PRN DAILY PRN MC SEE COMMENTS 12/12/20 09:00 12/14/20 08:59 EKG: EKG: EKG was done at 756, heart rate of 86 bpm, sinus rhythm, left axis deviation, no ST segment elevation. Radiology/Procedures: Radiology/Procedures: [][facility] [address] [place] [address] IMAGING REPORT Signed PATIENT: SAM WATTERS ACCOUNT: [id number] : 1960 LOCATION: ER AGE: 60 SEX: M EXAM STATUS: REG ER ORD. PHYSICIAN: NBA HERNANDEZ DO REASON: ABDOMINAL PAIN, NAUSEA, VOMITING, COVID-19 INFECTION PROCEDURE: CT ABD PELV W/ IV CONTRST ONLY PQRS Compliance Statement: One or more of the following individualized dose reduction techniques were utilized for this examination: 1. Automated exposure control 2. Adjustment of the mA and/or kV according to patient size 3. Use of iterative reconstruction technique Exam performed: CT abdomen and pelvis with contrast HISTORY: Abdominal pain, nausea and vomiting, Covid 19 infection. DATE OF SERVICE: 12/13/2020. COMPARISON: None available TECHNIQUE: Contiguous helical acquisitions are obtained through the abdomen and pelvis during intravenous administration of contrast. Sagittal and coronal reformatted images are obtained and reviewed. FINDINGS: Lung bases are clear. Visualized heart is normal. The liver, spleen, pancreas and gallbladder appear normal. Both adrenal glands and bilateral kidneys are normal in size with symmetric excretion of contrast via both kidneys. There is a 4.4 mm calculus at the left pelviureteric junction. Without definite hydronephrosis. There is also a 2 to 3 mm nonobstructing calculus in the left inferior renal pole. The right kidney is normal. There is no perinephric stranding. Aorta is normal in caliber without aneurysm. Mild atheromatous calcification of the aorta is seen. The small and large bowel loops are nondilated and unremarkable. Appendix is not clearly seen. No inflammatory changes are seen in the right lower quadrant. There is scattered stool in the colon. The urinary bladder is partially decompressed. Prostatomegaly. Seminal vesicles and rectum appear normal. IMPRESSION: No acute intra-abdominal or pelvic process seen. Left renal calculi. Electronically signed by: Felicia Butt MD (12/12/2020 9:29 AM) [id number] DICTATED and SIGNED BY: FELICIA BUTT MD DATE: 12/12/20 [id number] 0 Course & Med Decision Making: Course & Med Decision Making Pertinent Labs and Imaging studies reviewed. (See chart for details) Patient is a 60-year-old male who present to ER due to cough, fever, headache, abdominal pain. Patient was tested positive for COVID-19, CT scan head abdomen pelvis did not show any acute process, chest x-ray was normal, his lab work came back normal as well, patient will be discharged home with COVID-19 infection formation. He is to be quarantined at home for 14 days. Dragon Disclaimer: Dragchandan Disclaimer: This electronic medical record was generated, in whole or in part, using a voice recognition dictation system. Departure Departure Impression: Primary Impression: COVID-19 virus infection Additional Impression: Abdominal pain Disposition: HOME / SELF CARE / HOMELESS Condition: STABLE Referrals: NO PCP (PCP) Patient Instructions: Abdominal Pain (Nonspecific), Viral Syndrome Additional Instructions: You have been tested for or diagnosed with COVID-19. It is an infection caused by a new type of coronavirus. COVID-19 will cause cold-like or mild flu symptoms in most. It can cause more severe symptoms like problems breathing in some. There is no treatment for COVID-19. The body will clear the infection over time. Self-care will help to ease discomfort. Steps to Take: Self-Care Rest as needed. Healthy habits may help you feel better. Steps include: Choose healthy foods including fruits and vegetables. Drink water throughout the day. Get plenty of sleep each night. If you smoke, try to quit. It may ease breathing. Avoid alcohol. Keep Others Healthy The virus can spread to others. Droplets are released every time you sneeze or cough. The droplets can get into the mouth, nose, or eyes of people near you and lead to infection. To lower the chances of spreading COVID-19 to others: Stay at home until your doctor has said it is safe to leave. If you tested positive this will mean staying isolated until both of the following are true: At least 7 days have passed since the start of illness. You are free of fever for at least 72 hours without the use of medicine. During this time: - Avoid public areas, events, or transportation. Do not return to work or school until your doctor has said it is safe to do so. - Call ahead if you need to go to a medical center. Let them know you may have COVID-19. It will help them guide you where to go. They may also ask you to wear a facemask when you come to the office. - If you call for emergency medical services, let them know you may have COVID- 19. While at home: - Try to avoid close contact with others. Stay about 6 feet away. - If possible, spend most of your time in a separate room from others. - Use a face mask if you will be in close contact with others such as sharing a room or vehicle. - Have someone wipe down common surfaces in the home. Use household bellows charger assembler every day on areas like doorknobs, counters, or sinks. - Cough or sneeze into a tissue. Throw the tissue away right after use. If a tissue is not available, cough or sneeze into your elbow. - Wash your hands often. Wash them after sneezing or coughing. Use soap and water and wash for at least 20 seconds. Alcohol based hand exhibit cleaner can be used if soap and water is not available. - Do not prepare food for others. Avoid sharing personal items like forks, spoons, or toothbrushes. - Avoid close contact with pets while you are sick. There is no evidence of the virus passing to pets. This is a safety step until more is known about this virus. Isolation can be frustrating. Social interaction can help. Keep in touch with friends and family through phone and tech options. You can still interact with others in your home, just keep a safe distance of about 6 feet. Follow-up: Your doctors office will check in with you to see if there are any changes in your health. You may be asked to keep track of symptoms to share with them. They will also let you know when you are clear to be in public again. Problems to Look Out For: Contact your doctor if your recovery is not going as you expect. Get emergency care if you have problems such as: - Trouble breathing - Nonstop chest pain or pressure - Changes in awareness, confusion, or problems waking - Lips or face have bluish color - Worsening of symptoms If you think you have an emergency, call for emergency medical services right away. As taken from [facility] NBA Brownlee DO Dec 12, 2020 07:47
[2020-12-12 07:59] LABS: BASO # 0.1 x10^3/uL (0.0-0.2); BASO % 1 % (0-3); EOS % 0 % (0-3); HEMATOCRIT 44.3 % (39.0-53.0); LYMPH # 0.6 x10^3/uL (1.0-4.8); LYMPH % 8 % (24-48); MEAN CORPUSCULAR HEMOGLOBIN 31 pg (25-35); MEAN CORPUSCULAR HGB CONC 34 g/dL (31-37); MEAN CORPUSCULAR VOLUME 92 fL (79-100); MONO # 1.6 x10^3/uL (0.0-1.1); MONO % 23 % (0-9); NEUT # 4.9 x10^3/uL (1.8-7.7); NEUT % 69 % (31-73); PLATELET COUNT 182 x10^3/uL (140-400); RED BLOOD COUNT 4.79 x10^6/uL (4.30-5.70); RED CELL DISTRIBUTION WIDTH 13.7 % (11.5-14.5); WHITE BLOOD COUNT 7.2 x10^3/uL (4.0-11.0)
--- NOTE | 2020-12-12 08:02 | RAD ---
XR CHEST 1V History: Reason: cough / Spl. Instructions: / History: Comparison: October 15, 2017 Findings: No consolidation or pleural effusion. Normal heart size. No pneumothorax. Density overlying the later al aspect of the lungs likely related to overlying structures. Impression: 1. No acute cardiopulmonary process. Electronically signed by: Jose Dickerson DO (12/12/2020 7:59 AM) [id number]
[2020-12-12 08:08] LABS: CALCIUM 8.7 mg/dL (8.5-10.1); CREATININE 1.1 mg/dL (0.7-1.3); GFR 68.3; POTASSIUM 4.5 mmol/L (3.5-5.1)
[2020-12-12 08:16] LABS: ALBUMIN 3.8 g/dL (3.4-5.0); ALBUMIN/GLOBULIN RATIO 1.1 (1.0-1.7); MAGNESIUM 1.9 mg/dL (1.8-2.4); TOTAL BILIRUBIN 0.3 mg/dL (0.2-1.0); TOTAL PROTEIN 7.4 g/dL (6.4-8.2)
[2020-12-12] MEDS ORDERED: IOHEXOL 300 MG/ML 100ML VIAL. IV ONE (09:00)
[2020-12-12] MEDS ORDERED: CONTRAST GIVEN. MC PRN (09:00)
[2020-12-12 09:01] LABS: BILIRUBIN,URINE NEGATIVE (NEG); CLARITY,URINE CLEAR; COLOR,URINE YELLOW; NITRITE,URINE NEGATIVE (NEG); PH,URINE 6.5 (<5.0-8.0); PROTEIN,URINE NEGATIVE (NEG-TRACE)
[2020-12-12 09:17] LABS: BACTERIA,URINE 0 /HPF (0-FEW); WBC,URINE OCC /HPF (0-4)
--- NOTE | 2020-12-12 09:31 | RAD ---
PQRS Compliance Statement: One or more of the following individualized dose reduction techniques were utilized for this examinat ion: 1. Automated exposure control 2. Adjustment of the mA and/or kV according to patient size 3. Use of iterative reconstruction technique Exam performed: CT abdomen and pelvis with contrast HISTORY: Abdominal pain, nausea and vomiting, Covid 19 infection. DATE OF SERVICE: 12/13/2020. COMPARISON: None available TECHNIQUE: Contiguous helical acquisitions are obtained through the abdomen and pelvis during intrave nous administration of contrast. Sagittal and coronal reformatted images are obtained and reviewed. FINDINGS: Lung bases are clear. Visualized heart is normal. The liver, spleen, pancreas and gallbladder appear normal. Both adrenal glands and bilateral kidneys are normal in size with symmetric excretion of contrast via both kidneys. There is a 4.4 mm calculus at the left pelviureteric junction. Without definite hydronephrosis. There is also a 2 to 3 mm nonobs tructing calculus in the left inferior renal pole. The right kidney is normal. There is no perinephri c stranding. Aorta is normal in caliber without aneurysm. Mild atheromatous calcification of the aort a is seen. The small and large bowel loops are nondilated and unremarkable. Appendix is not clearly s een. No inflammatory changes are seen in the right lower quadrant. There is scattered stool in the co tiffanie. The urinary bladder is partially decompressed. Prostatomegaly. Seminal vesicles and rectum appea r normal. IMPRESSION: No acute intra-abdominal or pelvic process seen. Left renal calculi. Electronically signed by: Felicia Butt MD (12/12/2020 9:29 AM) [id number]
[2020-12-12 10:00] VITALS: BP 163/75
[2020-12-12 10:00] LABS: % BANDS 19 % (0-9); % EOS 1 % (0-5); % LYMPHS 9 % (24-48); % MONOS 18 % (0-10); % SEGS 53 % (35-66)
[2020-12-12 10:01] LABS: PLT ESTIMATE ADEQUATE (ADEQUATE)
== END 2020-12-12 10:49 | disposition home or self-care (01) ==
LOC: ER 07:10
DX: U07.1 COVID-19 (principal); Z88.5 Allergy status to narcotic agent
CPT/HCPCS: 36415; 71045; 74177; 80053; 81001; 83690; 83735; 84484; 85007; 85025; 87426; 99285; G0480; Q9967

== ENCOUNTER 2020-12-20 10:35 | Emergency (ER) | payer SELFPAY ==
[~2020-12-20] VITALS: Ht 170.2 cm; Wt 75.1 kg
[2020-12-20] MEDS ORDERED: IV NORMAL SALINE 1000ML BAG 1,000 ML IV ONE (12:00)
[2020-12-20] MEDS ORDERED: ONDANSETRON PF 4 MG/2 ML VIAL. IVP ONE (12:00)
[2020-12-20] MEDS ORDERED: DEXAMETHASONE SOD PHOS 20 MG/5 ML VIAL. IV ONE (12:00)
[2020-12-20 12:02] LABS: CALCIUM 8.6 mg/dL (8.5-10.1); CREATININE 1.1 mg/dL (0.7-1.3); GFR 68.3; POTASSIUM 4.3 mmol/L (3.5-5.1)
[2020-12-20 12:03] LABS: BASO % 1 % (0-3); EOS % 0 % (0-3); HEMATOCRIT 46.4 % (39.0-53.0); HEMOGLOBIN 16.2 g/dL (13.0-17.5); LYMPH # 1.3 x10^3/uL (1.0-4.8); LYMPH % 24 % (24-48); MEAN CORPUSCULAR HEMOGLOBIN 32 pg (25-35); MEAN CORPUSCULAR HGB CONC 35 g/dL (31-37); MEAN CORPUSCULAR VOLUME 91 fL (79-100); MONO # 0.7 x10^3/uL (0.0-1.1); MONO % 14 % (0-9); NEUT # 3.4 x10^3/uL (1.8-7.7); NEUT % 61 % (31-73); PLATELET COUNT 99 x10^3/uL (140-400); RED BLOOD COUNT 5.12 x10^6/uL (4.30-5.70); RED CELL DISTRIBUTION WIDTH 13.3 % (11.5-14.5); WHITE BLOOD COUNT 5.6 x10^3/uL (4.0-11.0)
[2020-12-20 12:08] LABS: ALBUMIN 3.3 g/dL (3.4-5.0); ALBUMIN/GLOBULIN RATIO 0.8 (1.0-1.7); TOTAL BILIRUBIN 0.4 mg/dL (0.2-1.0); TOTAL PROTEIN 7.2 g/dL (6.4-8.2)
--- NOTE | 2020-12-20 12:46 | PHYS DOC ---
Past Medical History Past Medical History: No Pertinent History Additional Past Medical Histor: HEP C, HYPOGLYCEMIA,COVID-13 DEC 2020 (JOEY MANCUSO Wander LACE STRIPPER) Past Surgical History: Other Additional Past Surgical Histo: LEFT HAND,TWO FINGERS AMPUTATED,FATTY TUMOR REMOVED FROM R SIDE (JOEY MANCUSO Wander LACE STRIPPER) Smoking Status: Former Smoker Alcohol Use: None Drug Use: None (JOEY MANCUSO Wander LACE STRIPPER) General Adult EDM: Chief Complaint: NAUSEA/VOMITING/DIARRHEA HPI: HPI: Patient is a 60 year old male with no significant medical history who presents the ED today complaining of nausea, vomiting, diarrhea, symptoms began a week a go. Patient states he was diagnosed with COVID-19 on December 12, 2020. Patient reports mild abdominal cramping. Denies any hematemesis or melena. Denies anything specifically exacerbating or relieving his pain. (JOEY MANCUSO Wander LACE STRIPPER) Review of Systems: Review of Systems: Constitutional: Denies fever or chills. [] Eyes: Denies change in visual acuity. [] HENT: Denies nasal congestion or sore throat. [] Respiratory: Denies cough or shortness of breath. [] Cardiovascular: Denies chest pain or edema. [] GI: Reports abdominal pain, nausea vomiting and diarrhea : Denies dysuria. [] Musculoskeletal: Denies back pain or joint pain. [] Integument: Denies rash. [] Neurologic: Denies headache, focal weakness or sensory changes. [] Psychiatric: Denies depression or anxiety. [] (JAMEEJOEY Viramontes LACE STRIPPER) Heart Score: C/O Chest Pain: N/A Risk Factors: Risk Factors: DM, Current or recent (<one month) smoker, HTN, HLP, family history of CAD, obesity. Risk Scores: Score 0 - 3: 2.5% MACE over next 6 weeks - Discharge Home Score 4 - 6: 20.3% MACE over next 6 weeks - Admit for Clinical Observation Score 7 - 10: 72.7% MACE over next 6 weeks - Early Invasive Strategies (ARCHIEJOEY Hammer LACE STRIPPER) Current Medications: Current Medications Medications (Trade) Dose Ordered Sig/Kristy Start Time Stop Time Status Last Admin Dose Admin Dexamethasone Sodium Phosphate (Decadron) 10 mg 1X ONCE 12/20/20 12:00 12/20/20 12:01 DC 12/20/20 12:19 10 MG Ondansetron HCl (Zofran) 4 mg 1X ONCE 12/20/20 12:00 12/20/20 12:01 DC 12/20/20 12:16 4 MG Sodium Chloride 1,000 ml @ 1,000 mls/hr 1X ONCE 12/20/20 12:00 12/20/20 12:59 12/20/20 12:14 1,000 MLS/HR (JOEY MANCUSO LACE STRIPPER) Allergies: Allergies: Allergies Coded Allergies Type Severity Reaction Last Updated Verified codeine Allergy Severe hives 04/27/13 Yes (JOEY MANCUSO LACE STRIPPER) Physical Exam: PE: Constitutional: Well developed, well nourished, no acute distress, non-toxic appearance. [] HENT: Normocephalic, atraumatic, bilateral external ears normal, oropharynx moist, no oral exudates, nose normal. [] Eyes: PERRLA, EOMI, conjunctiva normal, no discharge. [] Neck: Normal range of motion, no tenderness, supple, no stridor. [] Cardiovascular:Heart rate regular rhythm, no murmur [] Lungs & Thorax: Bilateral breath sounds clear to auscultation [] Abdomen: Bowel sounds normal, soft, no tenderness, no masses, no pulsatile masses. [] Skin: Warm, dry, no erythema, no rash. [] Back: No tenderness, no CVA tenderness. [] Extremities: No tenderness, no cyanosis, no clubbing, ROM intact, no edema. [] Neurologic: Alert and oriented X 3, normal motor function, normal sensory function, no focal deficits noted. [] Psychologic: Affect normal, judgement normal, mood normal. [] (JOEY MANCUSO LACE STRIPPER) Current Patient Data: Labs: Laboratory Tests Test 12/20/20 11:26 White Blood Count 5.6 x10^3/uL (4.0-11.0) Red Blood Count 5.12 x10^6/uL (4.30-5.70) Hemoglobin 16.2 g/dL (13.0-17.5) Hematocrit 46.4 % (39.0-53.0) Mean Corpuscular Volume 91 fL (79-100) Mean Corpuscular Hemoglobin 32 pg (25-35) Mean Corpuscular Hemoglobin Concent 35 g/dL (31-37) Red Cell Distribution Width 13.3 % (11.5-14.5) Platelet Count 99 x10^3/uL (140-400) L Neutrophils (%) (Auto) 61 % (31-73) Lymphocytes (%) (Auto) 24 % (24-48) Monocytes (%) (Auto) 14 % (0-9) H Eosinophils (%) (Auto) 0 % (0-3) Basophils (%) (Auto) 1 % (0-3) Neutrophils # (Auto) 3.4 x10^3/uL (1.8-7.7) Lymphocytes # (Auto) 1.3 x10^3/uL (1.0-4.8) Monocytes # (Auto) 0.7 x10^3/uL (0.0-1.1) Eosinophils # (Auto) 0.0 x10^3/uL (0.0-0.7) Basophils # (Auto) 0.0 x10^3/uL (0.0-0.2) Sodium Level 138 mmol/L (136-145) Potassium Level 4.3 mmol/L (3.5-5.1) Chloride Level 101 mmol/L (98-107) Carbon Dioxide Level 27 mmol/L (21-32) Anion Gap 10 (6-14) Blood Urea Nitrogen 13 mg/dL (8-26) Creatinine 1.1 mg/dL (0.7-1.3) Estimated GFR (Cockcroft-Gault) 68.3 BUN/Creatinine Ratio 12 (6-20) Glucose Level 97 mg/dL (70-99) Calcium Level 8.6 mg/dL (8.5-10.1) Total Bilirubin 0.4 mg/dL (0.2-1.0) Aspartate Amino Transferase (AST) 38 U/L (15-37) H Alanine Aminotransferase (ALT) 40 U/L (16-63) Alkaline Phosphatase 116 U/L (46-116) Total Protein 7.2 g/dL (6.4-8.2) Albumin 3.3 g/dL (3.4-5.0) L Albumin/Globulin Ratio 0.8 (1.0-1.7) L Lipase 224 U/L (73-393) Ethyl Alcohol Level < 10 mg/dL (0-10) Laboratory Tests 12/20/20 11:26 Laboratory Tests 12/20/20 11:26 Vital Signs: Vital Signs Date Time Temp Pulse Resp B/P (MAP) Pulse Ox O2 Delivery O2 Flow Rate FiO2 12/20/20 12:21 75 24 153/80 (104) 96 Room Air 12/20/20 11:00 97.8 97.8 (JOEY MANCUSO APRN) EKG: EKG: [] (JOEY MANCUSO APRN) Radiology/Procedures: Radiology/Procedures: [] (JOEY MANCUSO APRN) Course & Med Decision Making: Course & Med Decision Making Pertinent Labs and Imaging studies reviewed. (See chart for details) This is a 60-year-old male patient presented to the ED today with nausea vomiting and diarrhea, symptoms began a week ago. He was diagnosed with COVID- 19 on December 12, 2020. Labs are done, patient was given IV fluids, he is feeling better. Discharge to home. Instructed to quarantine himself. Provided return precautions and discharged in stable condition. (JOEY MANCUSO APRN) Dragon Disclaimer: Dragon Disclaimer: This electronic medical record was generated, in whole or in part, using a voice recognition dictation system. (JOEY MANCUSO APRN) Departure Departure Impression: Primary Impression: Nausea and vomiting Qualified Codes: R11.2 - Nausea with vomiting, unspecified Additional Impressions: Lab test positive for detection of COVID-19 virus Abdominal pain Qualified Codes: R10.84 - Generalized abdominal pain Diarrhea Qualified Codes: R19.7 - Diarrhea, unspecified Disposition: 01 HOME / SELF CARE / HOMELESS Condition: STABLE Referrals: NO PCP (PCP) Follow-up with your doctor in 1 to 2 weeks Patient Instructions: Diarrhea, [id number], Nausea and Vomiting, [id number] Additional Instructions: You were seen for nausea and vomiting after being diagnosed with COVID-19. We ask you to rest, push fluids, take Tylenol or Motrin for pain or fever. Follow- up with your own doctor in the next 2 weeks. Come back to the ED at any point symptoms worsen Scripts Dicyclomine Hcl (DICYCLOMINE HCL) 20 Mg Tablet 1 TAB PO TID, #30 TAB 1 Refill Prov: JOEY MANCUSO APRN 12/20/20 Ondansetron Hcl (ZOFRAN) 4 Mg Tablet 1 TAB PO Q6HRS, #20 TAB Prov: JOEY MANCUSO APRN 12/20/20 Attending Signature I have participated in the care of this patient and I have reviewed and agree with all pertinent clinical information above including history, exam, and recommendations. (SKIP FLORIAN DO) JOEY MANCUSO APRN Dec 20, 2020 12:46 SKIP FLORIAN DO Dec 20, 2020 14:13
[2020-12-20 13:12] LABS: BILIRUBIN,URINE SMALL (NEG); CLARITY,URINE CLEAR; COLOR,URINE YELLOW; NITRITE,URINE NEGATIVE (NEG); PH,URINE 5.5 (<5.0-8.0); PROTEIN,URINE NEGATIVE (NEG-TRACE); UROBILINOGEN,URINE 0.2 mg/dL (0.2 mg/dL)
[2020-12-20 13:19] LABS: BARBITURATES NEG (NEG); BENZODIAZEPINES NEG (NEG); CANNABINOIDS NEG (NEG); COCAINE NEG (NEG); METHADONE NEG (NEG); OPIATES NEG (NEG); PHENCYCLIDINE NEG (NEG)
[2020-12-20 13:21] LABS: AMPHETAMINE/METHAMPHETAMINE NEG (NEG)
[2020-12-20 13:28] LABS: HYALINE CASTS, URINE FEW /HPF
[2020-12-20 13:29] LABS: BACTERIA,URINE 0 /HPF (0-FEW); RBC,URINE 0 /HPF (0-2); WBC,URINE OCC /HPF (0-4)
[2020-12-20] MEDS ORDERED: DICY20TA3 PO (13:36)
[2020-12-20] MEDS ORDERED: ONDA4TAB7 PO (13:36)
[2020-12-20 13:54] VITALS: BP 129/72
== END 2020-12-20 14:21 | disposition home or self-care (01) ==
LOC: ER 10:35
DX: U07.1 COVID-19 (principal); R11.2 Nausea with vomiting, unspecified; R19.7 Diarrhea, unspecified; R10.84 Generalized abdominal pain; Z88.5 Allergy status to narcotic agent
CPT/HCPCS: 36415; 80053; 80307; 81001; 83690; 85025; 96361; 96374; 96375; 99285; G0480; J1100; J2405; J7030

== ENCOUNTER 2020-12-30 18:04 | Emergency (ER) | payer SELFPAY ==
[~2020-12-30] VITALS: Ht 170.2 cm; Wt 77.5 kg
[~2020-12-30 18:04] MED LIST changes: +ONDA4TAB7 PO
[2020-12-30 18:09] VITALS: BP 174/90
[2020-12-30 18:32] LABS: BILIRUBIN,URINE NEGATIVE (NEG); CLARITY,URINE CLEAR; COLOR,URINE YELLOW; NITRITE,URINE NEGATIVE (NEG); PROTEIN,URINE NEGATIVE (NEG-TRACE); UROBILINOGEN,URINE 0.2 mg/dL (0.2 mg/dL)
[2020-12-30 18:37] LABS: BACTERIA,URINE 0 /HPF (0-FEW); WBC,URINE 0 /HPF (0-4)
[2020-12-30] MEDS ORDERED: TAMS0.4C97 PO (18:52)
--- NOTE | 2020-12-30 18:53 | PHYS DOC ---
Past Medical History Additional Past Medical Histor: HEP C, HYPOGLYCEMIA,COVID-13 DEC 2020 Past Surgical History: Other Additional Past Surgical Histo: LEFT HAND,TWO FINGERS AMPUTATED,FATTY TUMOR REMOVED FROM R SIDE Smoking Status: Former Smoker Alcohol Use: None Drug Use: None General Adult EDM: Chief Complaint: URINARY FREQUENCY HPI: HPI: Patient is a 60 year old male presents with history of increased urinary frequency and urgency since last night. Patient reports he sometimes feels he is unable to empty. Reports suprapubic fullness. Denies fever/chills. Denies trauma. Denies penile discharge. Review of Systems: Review of Systems: Constitutional: Denies fever or chills Eyes: Denies redness or eye pain HENT: Denies nasal congestion or sore throat Respiratory: Denies cough or shortness of breath Cardiovascular: Denies chest pain or palpitations GI: Denies abdominal pain, nausea, or vomiting : Reports urinary frequency and sensation of urinary retention; denies dysuria or hematuria Musculoskeletal: Denies back pain or joint pain Integument: Denies rash or skin lesions Neurologic: Denies headache, focal weakness or sensory changes Complete systems were reviewed and found to be within normal limits, except as documented in this note. Heart Score: C/O Chest Pain: N/A Allergies: Allergies: Allergies Coded Allergies Type Severity Reaction Last Updated Verified codeine Allergy Severe hives 04/27/13 Yes Physical Exam: PE: Constitutional: Well developed, well nourished, no acute distress, non-toxic appearance HENT: Normocephalic, atraumatic Eyes: Conjunctiva normal, no discharge Neck: Normal range of motion, no tenderness, supple Lungs & Thorax: No respiratory distress, equal chest rise and fall Abdomen: Soft, no tenderness, no distention/rebound tenderness/guarding Skin: Warm, dry, no erythema, no rash Back: No tenderness, no CVA tenderness Extremities: No tenderness, ROM intact, no edema Neurologic: Alert and oriented X 3, no focal deficits noted Psychologic: Affect normal, judgment normal Current Patient Data: Labs: Laboratory Tests Test 12/30/20 18:11 Urine Collection Type Void Urine Color Yellow Urine Clarity Clear Urine pH 6.0 (<5.0-8.0) Urine Specific [place] <=1.005 (1.000-1.030) Urine Protein Negative mg/dL (NEG-TRACE) Urine Glucose (UA) Negative mg/dL (NEG) Urine Ketones (Stick) Negative mg/dL (NEG) Urine Blood Small (NEG) Urine Nitrite Negative (NEG) Urine Bilirubin Negative (NEG) Urine Urobilinogen Dipstick 0.2 mg/dL (0.2 mg/dL) Urine Leukocyte Esterase Negative (NEG) Urine RBC 1-2 /HPF (0-2) Urine WBC 0 /HPF (0-4) Urine Squamous Epithelial Cells Occ /LPF Urine Bacteria 0 /HPF (0-FEW) Vital Signs: Vital Signs Date Time Temp Pulse Resp B/P (MAP) Pulse Ox O2 Delivery O2 Flow Rate FiO2 12/30/20 18:09 98.2 69 17 174/90 (91) 95 Room Air 98.2 EKG: EKG: [] Radiology/Procedures: Radiology/Procedures: [] Course & Med Decision Making: Course & Med Decision Making Pertinent Lab studies reviewed. (See chart for details) Patient presents with report of increased urinary frequency since last night. Denies fever or chills. Patient reports he sometimes feels he is unable to empty. Patient was able to urinate here. UA without signs of infection. C oncern for possible partial urinary retention. Flomax provided. Patient stable for discharge with outpatient follow-up with PCP/urologist. Notified patient to contact insurance company or PCP for referral for urology. Discussed findings and plan with patient, who acknowledges understanding and agreement. Dione Disclaimer: Dione Disclaimer: This electronic medical record was generated, in whole or in part, using a voice recognition dictation system. Departure Departure Impression: Primary Impression: Urinary frequency Disposition: HOME / SELF CARE / HOMELESS Condition: STABLE Referrals: NO PCP (PCP) Patient Instructions: Urinary Frequency Additional Instructions: Contact your PCP or insurance company for referral to urologist for further evaluation and treatment. Scripts Tamsulosin Hcl (FLOMAX) 0.4 Mg Cap.er.24h 1 CAP PO DAILY, #30 CAP Prov: DAVE CARNEY DO 12/30/20 DAVE CARNEY DO Dec 30, 2020 18:53
[2020-12-30] MEDS ORDERED: TAMSULOSIN 0.4 MG CAP.ER.24H. PO ONE (19:00)
== END 2020-12-30 19:42 | disposition home or self-care (01) ==
LOC: ER 18:04
DX: R35.0 Frequency of micturition (principal); R33.9 Retention of urine, unspecified; Z87.891 Personal history of nicotine dependence; Z88.5 Allergy status to narcotic agent
CPT/HCPCS: 81001; 99283

== ENCOUNTER 2021-01-26 01:33 | Emergency (ER) | payer SELFPAY ==
[~2021-01-26] VITALS: Ht 170.2 cm; Wt 77.0 kg
[~2021-01-26 01:33] MED LIST changes: +TAMS0.4C97 PO
[2021-01-26] MEDS ORDERED: TETRACAINE 0.5% OPHTH SOLUTION 4ML BOTTLE. OD ONE (01:45)
[2021-01-26] MEDS ORDERED: FLUORESCEIN OPHTH TEST STRIP. OD ONE (01:45)
[2021-01-26] MEDS ORDERED: ERYTHROMYCIN 0.5% OPHTH OINTMENT 1GM TUBE. OD ONE (01:45)
[2021-01-26 01:50] VITALS: BP 141/82
[2021-01-26] MEDS ORDERED: ERYT1OIN6 OP (02:07)
--- NOTE | 2021-01-26 02:07 | PHYS DOC ---
Past Medical History Additional Past Medical Histor: HEP C, HYPOGLYCEMIA,COVID-13 DEC 2020 Past Surgical History: Other Additional Past Surgical Histo: LEFT HAND,TWO FINGERS AMPUTATED,FATTY TUMOR REMOVED FROM R SIDE Smoking Status: Former Smoker Alcohol Use: None Drug Use: None General Adult EDM: Chief Complaint: EYE PROBLEMS HPI: HPI: Patient is a 60-year-old male presents with right eye discomfort and pain with foreign body sensation that started at approximately 1400 yesterday afternoon. Patient reports he was working on a cabinet and did have safety glasses on. Patient reports he took the glasses off for a moment and thinks he might of gotten some wood particle/sawdust in his eye. Patient denies any grinding of metal. Denies welding. Patient denies contact use. Patient reports upon trying to go to bed this evening significant pain to the eye. Denies any fever or chills. Denies vision change. Review of Systems: Review of Systems: Constitutional: Denies fever or chills Eyes: Reports right eye redness and pain HENT: Denies nasal congestion or sore throat Respiratory: Denies cough or shortness of breath Cardiovascular: Denies chest pain or palpitations GI: Denies abdominal pain, nausea, or vomiting : Denies dysuria or hematuria Musculoskeletal: Denies back pain or joint pain Integument: Denies rash or skin lesions Neurologic: Denies headache, focal weakness or sensory changes Complete systems were reviewed and found to be within normal limits, except as documented in this note. Heart Score: C/O Chest Pain: N/A Current Medications: Current Medications Medications (Trade) Dose Ordered Sig/Kristy Start Time Stop Time Status Last Admin Dose Admin Erythromycin (Romycin) 0.25 inch 1X ONCE 01/26/21 01:45 01/26/21 01:46 DC 01/26/21 01:56 0.25 INCH Fluorescein Sodium (Ful-Ngozi) 1 strip 1X ONCE 01/26/21 01:45 01/26/21 01:46 DC 01/26/21 01:56 1 STRIP Tetracaine HCl (Tetracaine) 2 drop 1X ONCE 01/26/21 01:45 01/26/21 01:46 DC 01/26/21 01:56 2 DROP Allergies: Allergies: Allergies Coded Allergies Type Severity Reaction Last Updated Verified codeine Allergy Severe hives 1/1/14 Yes Physical Exam: PE: Constitutional: Well developed, well nourished, no acute distress, non-toxic appearance HENT: Normocephalic, atraumatic Eyes: PERRL, EOMI, right conjunctiva injected, no discharge, no retained foreign body noted, fluorescein uptake appreciated at 6 o'clock position under [place] lamp evaluation, right upper eyelid everted without signs of retained foreign body, no Clifford sign Neck: Normal range of motion, no tenderness, supple Lungs & Thorax: No respiratory distress, equal chest rise and fall Skin: Warm, dry, no erythema, no rash Extremities: No tenderness, ROM intact, no edema Neurologic: Alert and oriented X 3, no focal deficits noted Psychologic: Affect normal, judgment normal Current Patient Data: Vital Signs: Vital Signs Date Time Temp Pulse Resp B/P (MAP) Pulse Ox O2 Delivery O2 Flow Rate FiO2 01/26/21 01:50 97.5 79 18 141/82 (101) 96 Room Air 97.5 EKG: EKG: [] Radiology/Procedures: Radiology/Procedures: [] Course & Med Decision Making: Course & Med Decision Making Patient presents with HPI and physical exam consistent for corneal abrasion. Fluorescein uptake noted. No Clifford sign. 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 Ophthalmology referral provided. Discussed findings and plan with patient, who acknowledges understanding and agreement. Dione Disclaimer: Dione Disclaimer: This electronic medical record was generated, in whole or in part, using a voice recognition dictation system. Departure Departure Impression: Primary Impression: Corneal abrasion Qualified Codes: S05.01XA - Injury of conjunctiva and corneal abrasion without foreign body, right eye, initial encounter Disposition: HOME / SELF CARE / HOMELESS Condition: STABLE Referrals: NO PCP (PCP) MILLY MIMS MD Patient Instructions: Eye - Corneal Abrasion, [id number] Scripts Erythromycin Base (Erythromycin) 1 Gm Oint...g. 0.5 INCH OP QID for 5 Days, #1 MISC Prov: DAVE CARNEY DO 01/26/21 DAVE CARNEY DO Jan 26, 2021 02:07
== END 2021-01-26 02:29 | disposition home or self-care (01) ==
LOC: ER 01:33
DX: S05.01XA Injury of conjunctiva and corneal abrasion without foreign body, right eye, initial encounter (principal); Z87.891 Personal history of nicotine dependence; Z88.5 Allergy status to narcotic agent; X58.XXXA Exposure to other specified factors, initial encounter; Y93.89 Activity, other specified; Y92.89 Other specified places as the place of occurrence of the external cause; Y99.8 Other external cause status
CPT/HCPCS: 99283

== ENCOUNTER 2021-02-03 23:32 | Emergency (ER) | payer SELFPAY ==
[~2021-02-03] VITALS: Ht 170.2 cm; Wt 81.8 kg
[2021-02-03 23:48] VITALS: BP 148/75
--- NOTE | 2021-02-03 23:50 | PHYS DOC ---
Past Medical History Additional Past Medical Histor: HEP C, HYPOGLYCEMIA,COVID-13 DEC 2020 Past Surgical History: Other Additional Past Surgical Histo: LEFT HAND,TWO FINGERS AMPUTATED,FATTY TUMOR REMOVED FROM R SIDE Smoking Status: Former Smoker Alcohol Use: None Drug Use: None General Adult HPI: HPI: Patient is a 60 year old male who presents with bilateral eye irritation and itching and redness. He was at home, just prior to arrival and got some dust in his eyes. He denies any blunt trauma. He denies vision loss or acute vision changes. He denies any actual eye pain. He denies foreign body sensation. He was seen here on 01/26/2021 for a right corneal abrasion. He followed up with ophthalmology, and he had a reported metallic foreign body removed at that time. He is currently on topical antibiotic drops, the name of which she cannot recall. He has a scheduled appointment with his data collection specialist in about 12 hours. He wanted to make sure he did not have a foreign body in his eye today. Denies headache, sore throat, nausea vomiting, cough, chest pain. No other complaints. Review of Systems: Review of Systems: Constitutional: Denies fever or chills. [] Eyes: Bilateral eye irritation and redness. Tearing. No purulent drainage. No acute vision loss or acute vision changes. No eye pain. HENT: Denies nasal congestion or sore throat. [] Respiratory: Denies cough or shortness of breath. [] Cardiovascular: Denies chest pain or edema. [] Musculoskeletal: Denies back pain or joint pain. [] Integument: Denies rash. [] Neurologic: Denies headache or dizziness. Psychiatric: Denies depression or anxiety. [] Heart Score: C/O Chest Pain: No Risk Factors: Risk Factors: DM, Current or recent (<one month) smoker, HTN, HLP, family history of CAD, obesity. Risk Scores: Score 0 - 3: 2.5% MACE over next 6 weeks - Discharge Home Score 4 - 6: 20.3% MACE over next 6 weeks - Admit for Clinical Observation Score 7 - 10: 72.7% MACE over next 6 weeks - Early Invasive Strategies Allergies: Allergies: Allergies Coded Allergies Type Severity Reaction Last Updated Verified codeine Allergy Severe hives 04/27/13 Yes Physical Exam: PE: Constitutional: Well developed, well nourished, no acute distress, non-toxic appearance. [] HENT: Normocephalic, atraumatic, bilateral external ears normal, oropharynx moist, no oral exudates, nose normal. [] Eyes: PERRL, EOMI, there is mild bilateral conjunctival injection. No chemosis. Sclera are nonicteric and clear. No periorbital ecchymoses, edema, erythema or swelling. Red reflex present bilaterally. No visible foreign body or opacity noted on bilateral corneas. The patient is examined with fluorescein and [place] lamp, no visible foreign bodies or abrasions are noted. Neck: Trachea midline Cardiovascular: Well-perfused appearing Lungs & Thorax: Respirations are nonlabored] Neurologic: Alert and oriented X 3, normal motor function, normal sensory function, no focal deficits noted. [] Psychologic: Affect normal, judgement normal, mood normal. [] EKG: EKG: [] Radiology/Procedures: Radiology/Procedures: [] Course & Med Decision Making: Course & Med Decision Making I have discussed with the patient patient with the findings, differential diagnosis and plan of care. He appears to have a likely allergic or irritant conjunctivitis, mild in nature. No evidence of bacterial conjunctivitis. No evidence of foreign body. I told him to continue taking his topical antibiotics as prescribed by his data collection specialist and keep his scheduled appointment for later today. No indication for further invasive exams or imaging. Home care instructions given. He may use [id number] lubrication drops for his eyes, such as refresh drops. Return precautions given. He verbalizes understanding of instructions. Dione Disclaimer: Dione Disclaimer: This electronic medical record was generated, in whole or in part, using a voice recognition dictation system. Departure Departure Impression: Primary Impression: Eye irritation Disposition: HOME / SELF CARE / HOMELESS Condition: STABLE Referrals: NO PCP (PCP) Patient Instructions: Allergic Conjunctivitis, Artificial Tears eye solution Additional Instructions: Your exam today does not show any foreign body in either eye. Your eyes are likely irritated from the dust. You should continue taking the prescribed antibiotics from your data collection specialist. Keep your appointment later today with your data collection specialist. You may use [id number] lubricating drops to help with eye irritation. Return to the ER for severe pain, severe eyelid swelling or redness, yellow or green drainage from eyes, vision loss or any other concerns. MALIA YOUNGBLOOD DO Feb 03, 2021 23:50
[2021-02-04] MEDS: TETRACAINE 0.5% OPHTH SOLUTION 4ML BOTTLE. OU ONE (00:05)
[2021-02-04] MEDS: FLUORESCEIN OPHTH TEST STRIP. OU ONE (00:05)
== END 2021-02-04 00:13 | disposition home or self-care (01) ==
LOC: ER 23:32
DX: H57.89 Other specified disorders of eye and adnexa (principal); Z88.5 Allergy status to narcotic agent
CPT/HCPCS: 99283

== ENCOUNTER 2021-05-08 08:13 | Emergency (ER) | payer SELFPAY ==
[~2021-05-08] VITALS: Ht 170.2 cm; Wt 81.8 kg
[~2021-05-08 08:13] MED LIST changes: +BACI3.5O4 OD; +CEPH-264 PO; +CYCL10TA19 PO; -CYCL10TA2 PO; +DICY20TA PO; -DICY20TA3 PO; +HYDR-3164 PO; +IBUP-1007 PO; +MECL-75 PO; +ONDA4TAB12 PO; +PANT40TA77 PO; +SULF1TAB24 PO
--- NOTE | 2021-05-08 08:38 | ED.ADGEN ---
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 Patient states he has had difficulty walking. Denies spinning sensation but states he feels like his equilibrium is off. Also states he has a "buzzing" in his ears. Patient states that he had COVID about 1 month ago, and is unvaccinated, but per chart review he had COVID in November. Patient denies any medical history but does not see a physician regularly. States he had a prior history of tobacco use. Review of Systems: Review of Systems: All other systems within normal limits except for as noted in the HPI Current Medications: Current Medications Medications (Trade) Dose Ordered Sig/Kristy Start Time Stop Time Status Last Admin Dose Admin Meclizine HCl (Antivert) 25 mg 1X ONCE 05/08/21 08:45 05/08/21 08:46 DC 05/08/21 08:37 25 MG Allergies: Allergies: Allergies Coded Allergies Type Severity Reaction Last Updated Verified codeine Allergy Severe hives 04/27/13 Yes Physical Exam: PE: Constitutional: Well developed, well nourished, no acute distress, non-toxic appearance. [] HENT: Normocephalic, atraumatic, bilateral external ears normal, nose normal. [] Eyes: PERRLA, conjunctiva normal, no discharge. [] Neck: No rigidity, supple, no stridor. [] Cardiovascular: Regular rate and rhythm, brisk cap refill [] Lungs & Thorax: Non labored symmetric respirations, no tachypnea or respiratory distress [] Abdomen: Soft, nondistended. Skin: Warm, dry, no erythema, no rash. [] Back: Unremarkable Extremities: No deformities, range of motion grossly intact, no lower extremity edema [] Neurologic: Alert and oriented X 3, no focal deficits noted. [] Psychologic: Affect normal, judgement normal, mood normal. [] Current Patient Data: Labs: Laboratory Tests Test 05/08/21 08:45 1/12/22 08:50 Influenza Type A Antigen Negative (NEGATIVE) Influenza Type B Antigen Negative (NEGATIVE) SARS-CoV-2 Antigen (Rapid) Negative (NEGATIVE) White Blood Count 5.9 x10^3/uL (4.0-11.0) Red Blood Count 4.92 x10^6/uL (4.30-5.70) Hemoglobin 15.2 g/dL (13.0-17.5) Hematocrit 44.8 % (39.0-53.0) Mean Corpuscular Volume 91 fL (79-100) Mean Corpuscular Hemoglobin 31 pg (25-35) Mean Corpuscular Hemoglobin Concent 34 g/dL (31-37) Red Cell Distribution Width 13.4 % (11.5-14.5) Platelet Count 217 x10^3/uL (140-400) Neutrophils (%) (Auto) 57 % (31-73) Lymphocytes (%) (Auto) 26 % (24-48) Monocytes (%) (Auto) 13 % (0-9) H Eosinophils (%) (Auto) 2 % (0-3) Basophils (%) (Auto) 2 % (0-3) Neutrophils # (Auto) 3.4 x10^3/uL (1.8-7.7) Lymphocytes # (Auto) 1.5 x10^3/uL (1.0-4.8) Monocytes # (Auto) 0.7 x10^3/uL (0.0-1.1) Eosinophils # (Auto) 0.1 x10^3/uL (0.0-0.7) Basophils # (Auto) 0.1 x10^3/uL (0.0-0.2) D-Dimer (Litzy) < 0.27 ug/mlFEU Sodium Level 142 mmol/L (136-145) Potassium Level 4.3 mmol/L (3.5-5.1) Chloride Level 105 mmol/L (98-107) Carbon Dioxide Level 29 mmol/L (21-32) Anion Gap 8 (6-14) Blood Urea Nitrogen 14 mg/dL (8-26) Creatinine 1.1 mg/dL (0.7-1.3) Estimated GFR (Cockcroft-Gault) 68.3 BUN/Creatinine Ratio 13 (6-20) Glucose Level 104 mg/dL (70-99) H Calcium Level 8.6 mg/dL (8.5-10.1) Phosphorus Level 2.0 mg/dL (2.6-4.7) L Magnesium Level 2.1 mg/dL (1.8-2.4) Total Bilirubin 0.6 mg/dL (0.2-1.0) Aspartate Amino Transferase (AST) 22 U/L (15-37) Alanine Aminotransferase (ALT) 44 U/L (16-63) Alkaline Phosphatase 137 U/L (46-116) H Troponin I High Sensitivity 5 ng/L (4-75) FL-Alk-J-Type Natriuretic Peptide 17 pg/mL (0-124) Total Protein 7.2 g/dL (6.4-8.2) Albumin 3.5 g/dL (3.4-5.0) Albumin/Globulin Ratio 0.9 (1.0-1.7) L Laboratory Tests 05/08/21 08:50 Laboratory Tests 05/08/21 08:50 Vital Signs: Vital Signs Date Time Temp Pulse Resp B/P (MAP) Pulse Ox O2 Delivery O2 Flow Rate FiO2 05/08/21 08:13 98.0 66 17 164/81 (108) 99 Room Air 98.0 EKG: EKG: Sinus rhythm, left axis deviation, no ST elevation depression, no ectopy, normal intervals. [] Heart Score: C/O Chest Pain: No HEART Score for Chest Pain: HEART Score for Chest Pain Response (Comments) Value History Slighlty/Non-Suspicious 0 ECG Normal 0 Age >45 - < 65 1 Risk Factors 1 or 2 Risk Factors 1 Troponin < Normal Limit 0 Total 2 Risk Factors: Risk Factors: DM, Current or recent (<one month) smoker, HTN, HLP, family history of CAD, obesity. Risk Scores: Score 0 - 3: 2.5% MACE over next 6 weeks - Discharge Home Score 4 - 6: 20.3% MACE over next 6 weeks - Admit for Clinical Observation Score 7 - 10: 72.7% MACE over next 6 weeks - Early Invasive Strategies Radiology/Procedures: Radiology/Procedures: [facility] [address] [place], [place] [id number] IMAGING REPORT Signed PATIENT: SAM WATTERS ACCOUNT: [id number] : 1960 LOCATION: ER AGE: 60 SEX: M EXAM STATUS: PRE ER ORD. PHYSICIAN: FERNANDA TEIXEIRA MD REASON: vertigo PROCEDURE: CT HEAD WO CONTRAST CT Head W/O Contrast: History: Change in mental status Comparison: none Axial images were obtained without contrast. The kaur and white matter appears normal and symmetrical for the patients age. There is no mass effect, extraaxial fluid collections or hydrocephalus. There is no gross bleed. There is no focal loss of kaur-white matter distinction to suggest acute ischemia, i.e. stroke. Impression: No acute findings. PQRS Compliance Statement: One or more of the following individualized dose reduction techniques were u tilized for this examination: 1. Automated exposure control 2. Adjustment of the mA and/or kV according to patient size 3. Use of iterative reconstruction technique Electronically signed by: Drake Freeman III, MD (05/08/2021 9:11 AM) [id number] DICTATED and SIGNED BY: DRAKE FREEMAN III, MD DATE: 05/08/21 [id number] [][facility] [address] [place], [place] [id number] IMAGING REPORT Signed PATIENT: SAM WATTERS ACCOUNT: [id number] : 1960 LOCATION: ER AGE: 60 SEX: M EXAM STATUS: PRE ER ORD. PHYSICIAN: FERNANDA TEIXEIRA MD REASON: soa PROCEDURE: CHEST AP ONLY Exam Date: 05/08/2021 8:26 AM XR CHEST 1V Indication: Reason: soa / Spl. Instructions: / History: . Comparison: December 12, 2020 FINDINGS/ IMPRESSION: The cardiac silhouette is enlarged. Slightly prominent interstitial markings bilaterally are nonspecific, but could represent mild interstitial edema versus interstitial pneumonia. There is no focal consolidation, pleural effusion or pneumothorax. The visualized osseous structures are intact. Electronically signed by: Kristal Gonzalez MD (05/08/2021 8:37 AM) [facility] DICTATED and SIGNED BY: KRISTAL GONZALEZ MD DATE: 05/08/21 [id number] 0 Course & Med Decision Making: Course & Med Decision Making Pertinent Labs and Imaging studies reviewed. (See chart for details) Work-up unremarkable, history and exam consistent with peripheral vertigo. Chikis ent ambulating with steady gait and states he is feeling better after having meclizine. [] Dragon Disclaimer: Dragon Disclaimer: This electronic medical record was generated, in whole or in part, using a voice recognition dictation system. Departure Departure Impression: Primary Impression: Vertigo Disposition: 07 LEFT AWOL/ELOPED Condition: IMPROVED Referrals: NO PCP (PCP) Patient Instructions: Vertigo, [id number] Scripts Meclizine Hcl (MECLIZINE HCL) 25 Mg Tablet 1 TAB PO TID for dizziness, #20 TAB Prov: FERNANDA TEIXEIRA MD 05/08/21 FERNANDA TEIXEIRA MD May 08, 2021 08:38
[2021-05-08] MEDS ORDERED: MECLIZINE HCL 12.5 MG TABLET. PO ONE (08:45)
[2021-05-08 09:08] LABS: BASO # 0.1 x10^3/uL (0.0-0.2); BASO % 2 % (0-3); EOS # 0.1 x10^3/uL (0.0-0.7); EOS % 2 % (0-3); HEMATOCRIT 44.8 % (39.0-53.0); HEMOGLOBIN 15.2 g/dL (13.0-17.5); LYMPH # 1.5 x10^3/uL (1.0-4.8); LYMPH % 26 % (24-48); MEAN CORPUSCULAR HEMOGLOBIN 31 pg (25-35); MEAN CORPUSCULAR HGB CONC 34 g/dL (31-37); MEAN CORPUSCULAR VOLUME 91 fL (79-100); MONO # 0.7 x10^3/uL (0.0-1.1); MONO % 13 % (0-9); NEUT # 3.4 x10^3/uL (1.8-7.7); NEUT % 57 % (31-73); PLATELET COUNT 217 x10^3/uL (140-400); RED BLOOD COUNT 4.92 x10^6/uL (4.30-5.70); RED CELL DISTRIBUTION WIDTH 13.4 % (11.5-14.5); WHITE BLOOD COUNT 5.9 x10^3/uL (4.0-11.0)
--- NOTE | 2021-05-08 09:14 | RAD ---
CT Head W/O Contrast: History: Change in mental status Comparison: none Axial images were obtained without contrast. The kaur and white matter appears normal and symmetrical for the patients age. There is no mass effe ct, extraaxial fluid collections or hydrocephalus. There is no gross bleed. There is no focal loss of kaur-white matter distinction to suggest acute ischemia, i.e. stroke. Impression: No acute findings. RS Compliance Statement: One or more of the following individualized dose reduction techniques were utilized for this examinat ion: 1. Automated exposure control 2. Adjustment of the mA and/or kV according to patient size 3. Use of iterative reconstruction technique Electronically signed by: Yonatan Dorantes III, MD (05/08/2021 9:11 AM) [id number]
[2021-05-08 09:22] LABS: CALCIUM 8.6 mg/dL (8.5-10.1); CREATININE 1.1 mg/dL (0.7-1.3); GFR 68.3; POTASSIUM 4.3 mmol/L (3.5-5.1)
[2021-05-08 09:27] LABS: INFLUENZA A PATIENT NEGATIVE (NEGATIVE); INFLUENZA B PATIENT NEGATIVE (NEGATIVE)
[2021-05-08 09:28] LABS: ALBUMIN 3.5 g/dL (3.4-5.0); ALBUMIN/GLOBULIN RATIO 0.9 (1.0-1.7); MAGNESIUM 2.1 mg/dL (1.8-2.4); TOTAL BILIRUBIN 0.6 mg/dL (0.2-1.0); TOTAL PROTEIN 7.2 g/dL (6.4-8.2)
[2021-05-08] MEDS ORDERED: MECL-75 PO (10:33)
--- NOTE | 2021-05-08 12:40 | EKG ---
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
[2021-05-08 14:20] VITALS: BP 147/85
--- NOTE | 2021-05-09 08:58 | NUR ---
IP: Attempted to contact pt concerning covid results. Pt not at home per . Will have pt call me.
== END 2021-05-08 10:39 | disposition home or self-care (01) ==
LOC: ER 08:13
DX: R42 Dizziness and giddiness (principal); Z20.822 Contact with and (suspected) exposure to COVID-19; R05.9 Cough, unspecified; R06.02 Shortness of breath; Z87.891 Personal history of nicotine dependence; Z88.5 Allergy status to narcotic agent
CPT/HCPCS: 36415; 70450; 71045; 80053; 83735; 83880; 84100; 84484; 85025; 85379; 93005; 99285; J8597; U0003; 87428

== ENCOUNTER 2021-06-26 07:12 | Observation (INO) | payer SELFPAY ==
[~2021-06-26] VITALS: Ht 170.2 cm; Wt 72.5 kg
--- NOTE | 2021-06-26 07:23 | PHYS DOC ---
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 He describes midsternal chest tightness, no radiation of pain. He reports nausea, no vomiting. He reports a little bit of dizziness, no diaphoresis. No syncope or near syncope. He does not usually experience these types of symptoms. He denies fevers or chills. Denies cough with sputum production. He denies abdominal pain. He denies lower extremity pain or swelling. He reports that he felt well last night before going to bed. No recent known sick contacts, no travel history, no surgeries or hospitalizations. Review of Systems: Review of Systems: Constitutional: Denies fever or chills. [] HENT: Denies nasal congestion or sore throat. [] Respiratory: Reports rare, dry cough. Reports dyspnea. No wheezing or hemoptysis. Cardiovascular: Reports chest tightness. GI: Denies abdominal pain, nausea, vomiting Musculoskeletal: Denies back pain or joint pain. [] Integument: Denies rash. [] Neurologic: Denies headache, focal weakness or sensory changes. [] Psychiatric: Denies depression or anxiety. [] Heart Score: C/O Chest Pain: No HEART Score for Chest Pain: HEART Score for Chest Pain Response (Comments) Value History Moderately Suspicious 1 ECG Nonspecific Repolarizatio 1 Age >45 - < 65 1 Risk Factors 1 or 2 Risk Factors 1 Total 4 Risk Factors: Risk Factors: DM, Current or recent (<one month) smoker, HTN, HLP, family history of CAD, obesity. Risk Scores: Score 0 - 3: 2.5% MACE over next 6 weeks - Discharge Home Score 4 - 6: 20.3% MACE over next 6 weeks - Admit for Clinical Observation Score 7 - 10: 72.7% MACE over next 6 weeks - Early Invasive Strategies Allergies: Allergies: Allergies Coded Allergies Type Severity Reaction Last Updated Verified codeine Allergy Severe hives 04/27/13 Yes Physical Exam: PE: Constitutional: Well developed, well nourished, no acute distress, non-toxic appearance. [] HENT: Normocephalic, atraumatic Eyes: Conjunctive are normal, sclera are anicteric Neck: Normal range of motion, no tenderness, supple, no stridor. Trachea is midline, no JVD Cardiovascular:Heart rate regular rhythm, 2 radial and +2 posterior tibial pulses Lungs & Thorax: Lungs are clear to auscultation bilaterally without rales, rhonchi or wheezes. No stridor. Equal chest rise. No evidence of respiratory distress Abdomen: Abdomen is soft, nondistended, nontender to palpation. No palpable pulsatile mass. No organomegaly. Skin: Warm, dry, no erythema, no rash. [] Back: No tenderness, no CVA tenderness. [] Extremities: No tenderness, no cyanosis, no clubbing, ROM intact, no edema. No calf tenderness. Neurologic: Alert and oriented X 3, normal motor function, normal sensory function, no focal deficits noted. [] Psychologic: Affect is flat. EKG: EKG: EKG is interpreted at 0719 Rhythm is sinus Rate is 70 bpm [place] is normal No STEMI Radiology/Procedures: Radiology/Procedures: IMAGING REPORT Signed PATIENT: SAM WATTERS ACCOUNT: [id number] : 1960 LOCATION: ER AGE: 61 SEX: M EXAM STATUS: REG ER ORD. PHYSICIAN: MALIA YOUNGBLOOD DO REASON: chest pain PROCEDURE: PORTABLE CHEST 1V EXAMINATION: XR CHEST 1V CLINICAL HISTORY: Chest pain. EXAM DATE/TIME: 06/26/2021 7:36 AM COMPARISON: 05/08/2021 FINDINGS: Lines, Tubes, and Devices: None. Cardiomediastinal Silhouette: Normal heart size. Aortic atherosclerotic calcification. Lungs and Pleura: No evidence of focal airspace consolidation or pleural effusion. Pulmonary vasculature unremarkable. Bones and Soft Tissues: Degenerative changes in the thoracic spine. IMPRESSION: No evidence of acute cardiopulmonary abnormality. Electronically signed by: Jeremy Grubbs DO (06/26/2021 8:08 AM) [id number] DICTATED and SIGNED BY: JEREMY GRUBBS DO DATE: 06/26/21 [id number] 0 Course & Med Decision Making: Course & Med Decision Making Pertinent Labs and Imaging studies reviewed. (See chart for details) P.o. aspirin, sublingual nitroglycerin and p.o. Tylenol given. Tylenol was given for headache after nitroglycerin. The patient's pain is resolved at this time. EKG does not demonstrate any acute ischemia, nonspecific changes. Troponin is negative, though he presents within an hour of onset of symptoms. I have discussed the findings, differential diagnosis and plan of care with him. I recommend hospitalization for serial troponin, EKG and cardiology consultation. He is comfortable with the plan of care. He is excepted for admission by Dr. Santana. Dione Disclaimer: Dione Disclaimer: This electronic medical record was generated, in whole or in part, using a voice recognition dictation system. Departure Departure Impression: Primary Impression: Chest pain Qualified Codes: R07.9 - Chest pain, unspecified Disposition: ADMITTED INPATIENT Admitting Physician: EDGAR (Dr. Santana) Condition: STABLE Referrals: NO PCP (PCP) MALIA YOUNGBLOOD DO Jun 26, 2021 07:23
[2021-06-26] MEDS ORDERED: ASPIRIN CHEWABLE 81 MG TABLET. PO ONE (07:30)
[2021-06-26] MEDS: NITROGLYCERIN SUBLINGUAL 0.4 MG BOTTLE OF 25. SL PRN ×2 (07:38→09:23)
[2021-06-26 07:43] LABS: BASO # 0.1 x10^3/uL (0.0-0.2); BASO % 1 % (0-3); EOS # 0.2 x10^3/uL (0.0-0.7); EOS % 3 % (0-3); HEMATOCRIT 44.6 % (39.0-53.0); HEMOGLOBIN 14.8 g/dL (13.0-17.5); LYMPH # 1.8 x10^3/uL (1.0-4.8); LYMPH % 25 % (24-48); MEAN CORPUSCULAR HEMOGLOBIN 30 pg (25-35); MEAN CORPUSCULAR HGB CONC 33 g/dL (31-37); MEAN CORPUSCULAR VOLUME 91 fL (79-100); MONO % 13 % (0-9); NEUT # 4.2 x10^3/uL (1.8-7.7); NEUT % 58 % (31-73); PLATELET COUNT 221 x10^3/uL (140-400); RED BLOOD COUNT 4.89 x10^6/uL (4.30-5.70); RED CELL DISTRIBUTION WIDTH 13.6 % (11.5-14.5); WHITE BLOOD COUNT 7.3 x10^3/uL (4.0-11.0)
[2021-06-26 08:00] LABS: CALCIUM 8.2 mg/dL (8.5-10.1); CREATININE 1.1 mg/dL (0.7-1.3); GFR 68.1; POTASSIUM 3.8 mmol/L (3.5-5.1)
[2021-06-26 08:04] LABS: ALBUMIN 3.6 g/dL (3.4-5.0); MAGNESIUM 1.9 mg/dL (1.8-2.4); TOTAL BILIRUBIN 0.4 mg/dL (0.2-1.0); TOTAL PROTEIN 7.3 g/dL (6.4-8.2)
[2021-06-26 08:06] LABS: BILIRUBIN,URINE NEGATIVE (NEG); CLARITY,URINE CLEAR; COLOR,URINE YELLOW
[2021-06-26 08:07] LABS: NITRITE,URINE NEGATIVE (NEG); PROTEIN,URINE NEGATIVE (NEG-TRACE); UROBILINOGEN,URINE 0.2 mg/dL (0.2 mg/dL)
[2021-06-26 08:09] LABS: BACTERIA,URINE 0 /HPF (0-FEW); WBC,URINE 0 /HPF (0-4)
--- NOTE | 2021-06-26 08:10 | RAD ---
EXAMINATION: XR CHEST 1V CLINICAL HISTORY: Chest pain. EXAM DATE/TIME: 06/26/2021 7:36 AM COMPARISON: 05/08/2021 FINDINGS: Lines, Tubes, and Devices: None. Cardiomediastinal Silhouette: Normal heart size. Aortic atherosclerotic calcification. Lungs and Pleura: No evidence of focal airspace consolidation or pleural effusion. Pulmonary vasculat ure unremarkable. Bones and Soft Tissues: Degenerative changes in the thoracic spine. IMPRESSION: No evidence of acute cardiopulmonary abnormality. Electronically signed by: Jeremy Resendez DO (06/26/2021 8:08 AM) [id number]
[2021-06-26 08:13] LABS: BARBITURATES NEG (NEG); BENZODIAZEPINES NEG (NEG); CANNABINOIDS NEG (NEG); COCAINE NEG (NEG); METHADONE NEG (NEG); OPIATES NEG (NEG); PHENCYCLIDINE NEG (NEG)
[2021-06-26 08:14] LABS: AMPHETAMINE/METHAMPHETAMINE NEG (NEG)
[2021-06-26] MEDS ORDERED: ACETAMINOPHEN 500 MG TABLET PO ONE (09:00)
[2021-06-26] MEDS ORDERED: IV NORMAL SALINE 1000ML BAG 1,000 ML IV ONE (09:30)
[2021-06-26] MEDS ORDERED: ONDANSETRON PF 4 MG/2 ML VIAL. IVP PRN (09:30)
[2021-06-26] MEDS ORDERED: ACETAMINOPHEN 325 MG TABLET. PO PRN (09:30)
--- NOTE | 2021-06-26 10:30 | HP ---
DATE OF SERVICE: 06/26/2021 ADMIT DATE: 06/26/2021 CHIEF COMPLAINT: Chest pain. 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 He presents today with chest pain. He states his grandmother, grandfather and mom all 3 have coronary artery disease. They gave him some nitro in the ER that seemed to relieve his pain. I discussed the case with ER physician. We are going to admit the patient and consult Cardiology. PAST MEDICAL HISTORY: Hep C; hypoglycemia; COVID-19 in 11/2020; left hand surgery, two fingers amputated; fatty tumor from the right side, removed; previous tobacco abuse, he quit smoking 9 years ago. ALLERGIES: CODEINE. FAMILY HISTORY: Hypertension and coronary artery disease. SOCIAL HISTORY: He quit smoking 9 years ago. Does not drink or take drugs. 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 MEDICATIONS: Reviewed, please refer to the MRAD. REVIEW OF SYSTEMS: GENERAL: No history of weight change, weakness or fevers. SKIN: No bruising, hair changes or rashes. EYES: No blurred, double or loss of vision. NOSE AND THROAT: No history of nosebleeds, hoarseness or sore throat. HEART: No history of palpitations, chest pain or shortness of breath on exertion. LUNGS: Denies cough, hemoptysis, wheezing or shortness of breath. GASTROINTESTINAL: Denies changes in appetite, nausea, vomiting, diarrhea or constipation. GENITOURINARY: No history of frequency, urgency, hesitancy or nocturia. NEUROLOGIC: Denies history of numbness, tingling, tremor or weakness. PSYCHIATRIC: No history of panic, anxiety or depression. ENDOCRINE: No history of heat or cold intolerance, polyuria or polydipsia. EXTREMITIES: Denies muscle weakness, joint pain, pain on walking or stiffness. PHYSICAL EXAMINATION: VITALS: Within normal limits and are stable. GENERAL: No apparent distress. Alert and oriented. HEENT: Normal cephalic atraumatic, external auditory canals are patent EYES: Extraocular muscles are intact, pupils are equally round and reactive to light and accommodation MUSCULOSKELETAL: Well developed, well nourished, good range of motion ENDOCRINE: No thyromegaly was palpated LYMPHATICS: No cervical chain or axillary nodes were noted HEMATOPOIETIC: No bruising NECK: Supple, no JVD, no thyromegaly was noted. LUNGS: Clear to auscultation in all lung almeida without rhonchi or wheezing. HEART: RRR, S1, S2 present. Peripheral pulses intact, no obvious murmurs were noted. ABDOMEN: Soft, nontender. Positive bowel sounds no organomegaly, normal bowel sounds. EXTREMITIES: Without any cyanosis, clubbing, or edema. Pedal pulses intact, Homans sign is negative. NEUROLOGIC: Normal speech, normal tone. A and O x 3, moves all extremities, no obvious focal deficits. PSYCHIATRIC: Normal affect, normal mood. Stable. SKIN: No ulcerations or rashes, good skin turgor, no jaundice. VASCULAR: Good capillary refill, neurovascular bundle appears to be intact. LABORATORY DATA: Troponin is 6. ASSESSMENT AND PLAN: Chest pain, rule out coronary artery disease. The patient has been admitted. We will check serial enzymes, serial EKGs. Consult Cardiology. Cardiac monitoring, home meds, DVT prophylaxis. Full code, daily aspirin, p.r.n. nitro. VIVIANA/SERAFIN DR: Luis TID: [id number]
[2021-06-26 10:58] VITALS: BP 152/85
--- NOTE | 2021-06-26 10:59 | PDOC2 ---
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 Salazar SOURCE Source: Chart review, Patient HISTORY OF PRESENT ILLNESS HISTORY OF PRESENT ILLNESS This is a 61 yo male who presented secondary to chest pain. Patient reports he woke up this morning with tightness across his central chest. No associated dizziness, diaphoresis, or shortness of breath. Pain seem to worsen with certain movements. Pain resolved with nitro in ED and has not returned. PAST MEDICAL HISTORY GI: GERD Hepatobiliary: Hep A/B/C (C) Endocrine: Diabetes PAST SURGICAL HISTORY Past Surgical History: No pertinent history FAMILY HISTORY Family History: Heart Disease SOCIAL HISTORY Smoke: Quit ALCOHOL: none Drugs: None Lives: with Family CURRENT MEDICATIONS CURRENT MEDICATIONS Current Medications Medications (Trade) Dose Ordered Sig/Kristy Route PRN Reason Start Time Stop Time Status Last Admin Dose Admin Nitroglycerin (Nitrostat) 0.4 mg PRN Q5MIN PRN SL CHEST PAIN 06/26/21 07:30 06/26/21 09:23 Aspirin (Aspirin Chewable) 324 mg 1X ONCE PO 06/26/21 07:30 06/26/21 07:32 DC 06/26/21 07:38 Acetaminophen (Tylenol) 1,000 mg 1X ONCE PO 06/26/21 09:00 06/26/21 09:02 DC 06/26/21 09:22 ALLERGIES ALLERGIES: Coded Allergies: codeine (Verified Allergy, Severe, hives, 04/27/13) ROS Review of System 14 point ROS conducted with pertinent positives noted above in HPI PHYSICAL EXAM General: Alert, Oriented X3, Cooperative, No acute distress HEENT: Atraumatic Lungs: Clear to auscultation Heart: Regular rate Abdomen: Soft, No tenderness Extremities: No edema Skin: No significant lesion Neuro: Normal speech, Normal tone, Sensation intact Psych/Mental Status: Mental status NL VITALS/I&O VITALS/I&O: Vital Signs Date Time Temp Pulse Resp B/P (MAP) Pulse Ox O2 Delivery O2 Flow Rate FiO2 06/26/21 10:16 53 19 154/74 (100) 98 Room Air 06/26/21 07:16 97.8 97.8 LABS Lab: Laboratory Tests Test 06/26/21 07:30 06/26/21 07:54 White Blood Count 7.3 x10^3/uL (4.0-11.0) Red Blood Count 4.89 x10^6/uL (4.30-5.70) Hemoglobin 14.8 g/dL (13.0-17.5) Hematocrit 44.6 % (39.0-53.0) Mean Corpuscular Volume 91 fL (79-100) Mean Corpuscular Hemoglobin 30 pg (25-35) Mean Corpuscular Hemoglobin Concent 33 g/dL (31-37) Red Cell Distribution Width 13.6 % (11.5-14.5) Platelet Count 221 x10^3/uL (140-400) Neutrophils (%) (Auto) 58 % (31-73) Lymphocytes (%) (Auto) 25 % (24-48) Monocytes (%) (Auto) 13 % (0-9) H Eosinophils (%) (Auto) 3 % (0-3) Basophils (%) (Auto) 1 % (0-3) Neutrophils # (Auto) 4.2 x10^3/uL (1.8-7.7) Lymphocytes # (Auto) 1.8 x10^3/uL (1.0-4.8) Monocytes # (Auto) 1.0 x10^3/uL (0.0-1.1) Eosinophils # (Auto) 0.2 x10^3/uL (0.0-0.7) Basophils # (Auto) 0.1 x10^3/uL (0.0-0.2) Sodium Level 145 mmol/L (136-145) Potassium Level 3.8 mmol/L (3.5-5.1) Chloride Level 108 mmol/L (98-107) H Carbon Dioxide Level 26 mmol/L (21-32) Anion Gap 11 (6-14) Blood Urea Nitrogen 17 mg/dL (8-26) Creatinine 1.1 mg/dL (0.7-1.3) Estimated GFR (Cockcroft-Gault) 68.1 BUN/Creatinine Ratio 15 (6-20) Glucose Level 99 mg/dL (70-99) Calcium Level 8.2 mg/dL (8.5-10.1) L Magnesium Level 1.9 mg/dL (1.8-2.4) Total Bilirubin 0.4 mg/dL (0.2-1.0) Aspartate Amino Transferase (AST) 14 U/L (15-37) L Alanine Aminotransferase (ALT) 40 U/L (16-63) Alkaline Phosphatase 132 U/L (46-116) H Troponin I High Sensitivity 6 ng/L (4-75) XK-Eac-X-Type Natriuretic Peptide 22 pg/mL (0-124) Total Protein 7.3 g/dL (6.4-8.2) Albumin 3.6 g/dL (3.4-5.0) Albumin/Globulin Ratio 1.0 (1.0-1.7) Lipase 52 U/L (73-393) L Urine Collection Type Unknown Urine Color Yellow Urine Clarity Clear Urine pH 7.0 (<5.0-8.0) Urine Specific Rector 1.025 (1.000-1.030) Urine Protein Negative mg/dL (NEG-TRACE) Urine Glucose (UA) Negative mg/dL (NEG) Urine Ketones (Stick) Negative mg/dL (NEG) Urine Blood Negative (NEG) Urine Nitrite Negative (NEG) Urine Bilirubin Negative (NEG) Urine Urobilinogen Dipstick 0.2 mg/dL (0.2 mg/dL) Urine Leukocyte Esterase Negative (NEG) Urine RBC 1-2 /HPF (0-2) Urine WBC 0 /HPF (0-4) Urine Squamous Epithelial Cells Occ /LPF Urine Bacteria 0 /HPF (0-FEW) Urine Mucus Mod /LPF Urine Opiates Screen Neg (NEG) Urine Methadone Screen Neg (NEG) Urine Barbiturates Neg (NEG) Urine Phencyclidine Screen Neg (NEG) Urine Amphetamine/Methamphetamine Neg (NEG) Urine Benzodiazepines Screen Neg (NEG) Urine Cocaine Screen Neg (NEG) Urine Cannabinoids Screen Neg (NEG) Urine Ethyl Alcohol Neg (NEG) Laboratory Tests 06/26/21 07:30 Laboratory Tests 06/26/21 07:30 ECHOCARDIOGRAM ECHOCARDIOGRAM <Conclusion> The left ventricle is normal size. The left ventricular systolic function is normal. The ejection fraction is 55-60%. There is no significant aortic valvular stenosis. Doppler and Color Flow revealed no significant aortic regurgitation. Borderline mitral valve prolapse is present. Doppler and Color-flow revealed trace to mild mitral regurgitation. Doppler and Color Flow revealed trace to mild tricuspid regurgitation. DATE: 07/07/17 1146 HEART CATH HEART CATH CORONARY ANGIOGRAPHY: RCA is a moderate caliber vessel with normal angiographic appearance. LM is a moderate to caliber vessel with normal angiographic appearance. LAD is a moderate caliber vessel with normal angiographic appearance. LCx is a moderate caliber vessel with normal angiographic appearance. Conclusion 1. Normal coronary arteries. Recommendations Aggressive Medical Therapy DATE: 07/09/152000 ASSESSMENT/PLAN ASSESSMENT/PLAN 1. Chest pain ,atypical; initial trop negative. [facility] 2015 with normal coronaries as noted above. 2. Accelerated hypertension; remains elevated 3. GERD 4. H/o Hep C 5. H/o tobaccoism; in remission Recommendations ASA Trend trop Echocardiogram to assess LV systolic Consider outpatient ischemic evaluation LULA ROLON MD 06/26/21 1701: CARDIAC CONSULT ASSESSMENT/PLAN ASSESSMENT/PLAN Patient seen and examined. Agree with above nurse practitioner note. Echocardiogram and biomarkers are unremarkable. Plan for outpatient stress testing. Okay to discharge from a cardiac standpoint after blood pressure is better controlled. IBETH PATTERSON APRN Jun 26, 2021 10:59 LULA ROLON MD Jun 26, 2021 17:01
--- NOTE | 2021-06-26 15:15 | CARD ---
MR#: [id number] Date of Study: 06/26/2021 Ordering Physician: IBETH PATTERSON, Referring Physician: IBETH PATTERSON, Tech: Mili Borrego [facility] APPROVED REPORT EXAM: Two-dimensional and M-mode echocardiogram with Doppler and color Doppler. Other Information Quality : AverageHR: 57bpm Rhythm : NSR INDICATION Chest Pain RISK FACTORS Hypertension Smoking 2D DIMENSIONS RVDd3.3 (2.9-3.5cm)Left Atrium(2D)4.1 (1.6-4.0cm) IVSd1.0 (0.7-1.1cm)Aortic Root(2D)2.8 (2.0-3.7cm) LVDd3.9 (3.9-5.9cm)LVOT Diameter1.8 (1.8-2.4cm) PWd1.0 (0.7-1.1cm)LVDs2.6 (2.5-4.0cm) FS (%) 32.5 %SV40.9 ml Aortic Valve AoV Peak Naga.139.5cm/sAoV VTI30.1cm AO Peak GR.7.8mmHgLVOT Peak Naga.103.6cm/s AO Mean GR.3mmHgAVA (VMAX)1.91cm2 Mitral Valve MV E Qrkwvbte77.3cm/sMV DECEL IDRC145bc MV A Xeqbmlyg80.0cm/sE/A Ratio0.9 Tricuspid Valve TR P. Lronzopb296jp/sTR Peak Gr.25mmHg LEFT VENTRICLE The left ventricle is normal size. There is normal left ventricular wall thickness. The left ventricu lar systolic function is normal and the ejection fraction is within normal range. LV ejection fracti on of 55 to 60%. There is normal LV segmental wall motion. The left ventricular diastolic function an d filling is normal for age. RIGHT VENTRICLE The right ventricle is normal size. There is normal right ventricular wall thickness. The right ventr icular systolic function is normal. ATRIA The left atrium size is normal. The right atrium size is normal. The interatrial septum is intact wit h no evidence for an atrial septal defect or patent foramen ovale as noted on 2-D or Doppler imaging. AORTIC VALVE The aortic valve is normal in structure and function. Doppler and Color Flow revealed no significant aortic regurgitation. There is no significant aortic valvular stenosis. MITRAL VALVE The mitral valve is normal in structure and function. There is no evidence of mitral valve prolapse. There is no mitral valve stenosis. Doppler and Color-flow revealed mild mitral regurgitation. TRICUSPID VALVE The tricuspid valve is normal in structure and function. Doppler and Color Flow revealed mild tricusp id regurgitation. Estimated PAP 30 mmHg. There is no tricuspid valve stenosis. PULMONIC VALVE The pulmonary valve is normal in structure and function. Doppler and Color Flow revealed trace to mil d pulmonic valvular regurgitation. GREAT VESSELS The aortic root is normal in size. The ascending aorta is normal in size. The IVC is normal in size a nd collapses >50% with inspiration. PERICARDIAL EFFUSION There is no evidence of significant pericardial effusion. Critical Notification Critical Value: No <Conclusion> The left ventricle is normal size. The left ventricular systolic function is normal and the ejection fraction is within normal range. LV ejection fraction of 55 to 60%. Doppler and Color Flow revealed no significant aortic regurgitation. There is no significant aortic valvular stenosis. Doppler and Color-flow revealed mild mitral regurgitation. Doppler and Color Flow revealed mild tricuspid regurgitation. Estimated PAP 30 mmHg. Signed by : Dylan Mccrary MD Electronically Approved : 06/26/2021 15:15:16
[2021-06-26] MEDS ORDERED: LISINOPRIL 10 MG TABLET PO SCH (16:00)
[2021-06-26 16:55] VITALS: BP 165/82
[2021-06-26] MEDS ORDERED: LISI10TA16 PO ×2 (17:34→17:36)
[2021-06-26] MEDS ORDERED: ASPI-630 PO ×2 (17:35→17:37)
--- NOTE | 2021-06-26 18:30 | NUR ---
Pt. Echo result normal, Cardiac CUSTOMER SERVICE SECURITY OFFICER notified. Patient ok to be discharged to home with self care. Dr. Santana notified. Pt. was given discharge education on medication, diet, activities and follow up visit. Pt. stable at the time of discharge, left the hospital at 1820.
--- NOTE | 2021-06-27 07:53 | EKG ---
[facility] [address] [place] [address] Test Date: 2021-06-26 Test Time: 07:19:26 Pat Name: SAM WATTERS Department: Room: [facility] Gender: M Cio: : 1960 Requested By: MALIA YOUNGBLOOD Order Number: [id number] Reading MD: Jesus Murillo MD Measurements Intervals [place] Rate: 70 P: 0 IN: 166 QRS: 4 QRSD: 88 T: 10 QT: 416 QTc: 452 Interpretive Statements SINUS RHYTHM NORMAL ECG Electronically Signed On 07-01-2021 11:25:17 SEAM FINISHER by Jesus Murillo MD
[2021-06-27] MEDS ORDERED: ASPIRIN ENTERIC COATED 81 MG TABLET.DR. PO SCH (08:00)
== END 2021-06-26 18:20 | disposition home or self-care (01) ==
LOC: ER 07:12 → 6 SOUTH 08:55
PROVIDERS: ADMIT Internal Medicine; ATTEND Internal Medicine
DX: R07.89 Other chest pain (principal); I10 Essential (primary) hypertension; E11.649 Type 2 diabetes mellitus with hypoglycemia without coma; K21.9 Gastro-esophageal reflux disease without esophagitis; Z87.891 Personal history of nicotine dependence; Z89.029 Acquired absence of unspecified finger(s); Z86.19 Personal history of other infectious and parasitic diseases; Z86.16 Personal history of COVID-19; Z79.899 Other long term (current) drug therapy; Z98.890 Other specified postprocedural states
CPT/HCPCS: 36415; 71045; 80053; 80061; 80307; 81001; 83690; 83735; 83880; 84484; 85025; 93005; 93306; 99285; G0378; G0379; C8929

== ENCOUNTER 2021-07-30 08:02 | Inpatient (IN) | payer SELFPAY ==
[~2021-07-30] VITALS: Ht 170.2 cm; Wt 78.2 kg
[~2021-07-30 08:02] MED LIST changes: +ASPI-630 PO; +LISI10TA16 PO
--- NOTE | 2021-07-30 08:36 | PHYS DOC ---
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 He says that he has been short of breath for several days and has been worse with exertion but he denied any cough or fevers to me. He says what is wearing him significantly at this time is that shortly after arriving in the emergency department he started having right arm numbness and tingling. Time of onset is 745. Patient says that it is circumferentially numb from the shoulder all the way to the fingertips. He denies any weakness vision changes confusion or altered gait. He says he has never had symptoms similar to this in the past. He denies sleeping on it awkwardly or any positional changes that he can think of. He is in no acute distress with normal vital signs. Review of Systems Review of Systems Constitutional: Denies fever or chills [] Eyes: Denies change in visual acuity, redness, or eye pain [] HENT: Denies nasal congestion or sore throat [] Respiratory: Denies cough. + shortness of breath [] Cardiovascular: No additional information not addressed in HPI [] GI: Denies abdominal pain, nausea, vomiting, bloody stools or diarrhea [] : Denies dysuria or hematuria [] Musculoskeletal: Denies back pain or joint pain [] Integument: Denies rash or skin lesions [] Neurologic: Denies headache, focal weakness. + sensory changes [] All other systems were reviewed and found to be within normal limits, except as documented in this note. Allergies Allergies Allergies Coded Allergies Type Severity Reaction Last Updated Verified codeine Allergy Severe hives 07/30/21 Yes Physical Exam Physical Exam Constitutional: Well developed, well nourished, no acute distress, non-toxic appearance. [] HENT: Normocephalic, atraumatic, bilateral external ears normal, oropharynx moist, no oral exudates, nose normal. [] Eyes: PERRLA, EOMI, conjunctiva normal, no discharge. [] Neck: Normal range of motion, no tenderness, supple, no stridor. [] Cardiovascular:Heart rate regular rhythm, no murmur [] Lungs & Thorax: Bilateral breath sounds clear to auscultation [] Abdomen: Bowel sounds normal, soft, no tenderness, no masses, no pulsatile masses. [] Skin: Warm, dry, no erythema, no rash. [] Back: No tenderness, no CVA tenderness. [] Extremities: No tenderness, no cyanosis, no clubbing, ROM intact, no edema. [] Neurologic: Alert and oriented X 3, normal motor function. 5 out of 5 strength in all extremities however patient has subjective numbness to palpation in the right upper extremity circumferentially. Current Patient Data Vital Signs Vital Signs Date Time Temp Pulse Resp B/P (MAP) Pulse Ox O2 Delivery O2 Flow Rate FiO2 07/30/21 08:04 98.0 68 16 146/77 (100) 97 Room Air 98.0 Lab Values Laboratory Tests Test 07/30/21 08:29 07/30/21 08:31 Glucose (Fingerstick) 112 mg/dL (70-99) H White Blood Count 6.2 x10^3/uL (4.0-11.0) Red Blood Count 5.01 x10^6/uL (4.30-5.70) Hemoglobin 14.8 g/dL (13.0-17.5) Hematocrit 45.6 % (39.0-53.0) Mean Corpuscular Volume 91 fL (79-100) Mean Corpuscular Hemoglobin 30 pg (25-35) Mean Corpuscular Hemoglobin Concent 33 g/dL (31-37) Red Cell Distribution Width 13.5 % (11.5-14.5) Platelet Count 225 x10^3/uL (140-400) Neutrophils (%) (Auto) 61 % (31-73) Lymphocytes (%) (Auto) 24 % (24-48) Monocytes (%) (Auto) 12 % (0-9) H Eosinophils (%) (Auto) 2 % (0-3) Basophils (%) (Auto) 1 % (0-3) Neutrophils # (Auto) 3.8 x10^3/uL (1.8-7.7) Lymphocytes # (Auto) 1.4 x10^3/uL (1.0-4.8) Monocytes # (Auto) 0.7 x10^3/uL (0.0-1.1) Eosinophils # (Auto) 0.1 x10^3/uL (0.0-0.7) Basophils # (Auto) 0.1 x10^3/uL (0.0-0.2) Prothrombin Time 13.2 SEC (11.7-14.0) Prothrombin Time INR 1.0 (0.8-1.1) Activated Partial Thromboplast Time 32 SEC (24-38) Sodium Level 141 mmol/L (136-145) Potassium Level 3.9 mmol/L (3.5-5.1) Chloride Level 107 mmol/L (98-107) Carbon Dioxide Level 26 mmol/L (21-32) Anion Gap 8 (6-14) Blood Urea Nitrogen 15 mg/dL (8-26) Creatinine 1.2 mg/dL (0.7-1.3) Estimated GFR (Cockcroft-Gault) 61.6 BUN/Creatinine Ratio 13 (6-20) Glucose Level 110 mg/dL (70-99) H Calcium Level 9.3 mg/dL (8.5-10.1) Total Bilirubin 0.7 mg/dL (0.2-1.0) Aspartate Amino Transferase (AST) 21 U/L (15-37) Alanine Aminotransferase (ALT) 38 U/L (16-63) Alkaline Phosphatase 143 U/L (46-116) H Troponin I High Sensitivity 4 ng/L (4-75) BC-Bkl-D-Type Natriuretic Peptide 29 pg/mL (0-124) Total Protein 7.3 g/dL (6.4-8.2) Albumin 4.0 g/dL (3.4-5.0) Albumin/Globulin Ratio 1.2 (1.0-1.7) Laboratory Tests 07/30/21 08:31 Laboratory Tests 07/30/21 08:31 EKG EKG Sinus rhythm at 70 bpm with leftward axis no ST elevation or depression and normal T waves and normal intervals. Radiology/Procedures Radiology/Procedures [] Course & Med Decision Making Course & Med Decision Making Given patient has new onset neurologic deficit that started shortly prior to arrival he was activated as a code stroke. I did discuss TPA with patient shortly after his arrival and answered all questions but he could not make up his mind whether he would be interested in TPA or not. I discussed all risks and benefits and he verbalized understanding. Dr. Duffy came to bedside and consulted on patient and after his discussion with patient we will not pursue TPA at this time. Patient has an NIH stroke scale equal to 1 based off sensory deficits in the right upper extremity. Patient will be admitted the hospital for further observation and treatment. CT angios are pending at this time. Patient admitted in stable condition to the telemetry floor. Dragon Disclaimer Dragon Disclaimer This electronic medical record was generated, in whole or in part, using a voice recognition dictation system. Departure Departure Impression: Primary Impression: Right arm numbness Additional Impression: Dyspnea Disposition: ADMITTED INPATIENT Admitting Physician: EDGAR Vazquez) Condition: STABLE Referrals: NO PCP (PCP) Problem Qualifiers PRASANNA BRAVO DO Jul 30, 2021 08:36
--- NOTE | 2021-07-30 08:50 | RAD ---
CT brain without contrast HISTORY: Right arm numbness, code stroke CT scan of the brain was done without contrast. Comparison is made with a study from May 08. Ther e is no intracranial hemorrhage. Ventricles are normal in size. There is no mass effect or shift of t he midline. There is a questionable area slight decreased density in the left periventricular white m atter although a subtle asymmetry appears evident on the old study as well, probably chronic finding or asymmetric chronic white matter changes. Definite acute CVA is not identified. Follow-up with MRI could be of benefit. Ventricles are normal in size. There is no mass effect or shift of the midline. IMPRESSION: 1. Possible subtle area of decreased density in the white matter although possibly evident on the old study possibly a chronic finding. 2. No definite acute CVA noted. 3. No intracranial hemorrhage. FOR INTERNAL CODING PURPOSES Critical result: Findings discussed with PRASANNA BRAVO DO at 07/30/2021 8:43 AM. RESULT CODE: (C) PQRS Compliance Statement: One or more of the following individualized dose reduction techniques were utilized for this examinat ion: 1. Automated exposure control 2. Adjustment of the mA and/or kV according to patient size 3. Use of iterative reconstruction technique Electronically signed by: Jax Mancera MD (07/30/2021 8:47 AM) [id number]
[2021-07-30 08:54] LABS: PROTHROMBIN TIME PATIENT 13.2 SEC (11.7-14.0)
[2021-07-30 08:56] LABS: CALCIUM 9.3 mg/dL (8.5-10.1); CREATININE 1.2 mg/dL (0.7-1.3); GFR 61.6; POTASSIUM 3.9 mmol/L (3.5-5.1)
--- NOTE | 2021-07-30 09:00 | RAD ---
AP chest. HISTORY: Short of air AP view was taken of the chest. Lungs are clear. Heart is normal in size. There is no pleural effusio n. IMPRESSION: 1. No acute chest disease. Electronically signed by: Jax Mancera MD (07/30/2021 8:58 AM) [id number]
[2021-07-30 09:01] LABS: ALBUMIN/GLOBULIN RATIO 1.2 (1.0-1.7); BASO # 0.1 x10^3/uL (0.0-0.2); BASO % 1 % (0-3); EOS # 0.1 x10^3/uL (0.0-0.7); EOS % 2 % (0-3); HEMATOCRIT 45.6 % (39.0-53.0); HEMOGLOBIN 14.8 g/dL (13.0-17.5); LYMPH # 1.4 x10^3/uL (1.0-4.8); LYMPH % 24 % (24-48); MEAN CORPUSCULAR HEMOGLOBIN 30 pg (25-35); MEAN CORPUSCULAR HGB CONC 33 g/dL (31-37); MEAN CORPUSCULAR VOLUME 91 fL (79-100); MONO # 0.7 x10^3/uL (0.0-1.1); MONO % 12 % (0-9); NEUT # 3.8 x10^3/uL (1.8-7.7); NEUT % 61 % (31-73); PLATELET COUNT 225 x10^3/uL (140-400); RED BLOOD COUNT 5.01 x10^6/uL (4.30-5.70); RED CELL DISTRIBUTION WIDTH 13.5 % (11.5-14.5); TOTAL BILIRUBIN 0.7 mg/dL (0.2-1.0); TOTAL PROTEIN 7.3 g/dL (6.4-8.2); WHITE BLOOD COUNT 6.2 x10^3/uL (4.0-11.0)
[2021-07-30] MEDS ORDERED: CONTRAST GIVEN. MC PRN (09:30)
[2021-07-30] MEDS ORDERED: IOHEXOL 300 MG/ML 100ML VIAL. IV ONE (09:30)
[2021-07-30] MEDS ORDERED: ONDANSETRON PF 4 MG/2 ML VIAL. IVP PRN (09:45)
[2021-07-30] MEDS ORDERED: ASPIRIN RECTAL 300 MG SUPP. PR PRN (10:00)
[2021-07-30] MEDS ORDERED: ACETAMINOPHEN 325 MG TABLET. PO PRN (10:00)
--- NOTE | 2021-07-30 10:04 | PDOC2 ---
NEUROLOGY CONSULT Date of Service DOS: DATE: 07/30/21 TIME: 09:55 Reason for Consult Reason for Consult: Stroke symptoms Referring Physician Referring Physician: Hospitalist service Source Source: Chart review, Patient History of Present Illness History of Present Illness The patient is a 61-year-old right-handed male with no prior history of stroke who came to the emergency department mainly for 3 days of shortness of breath and some mild chest pain. While sitting in the waiting room he developed right arm numbness, that was about 0830. There is no weakness, dysarthria, dysphagia, diplopia, or cognitive change. Blood pressure is a little elevated for him. He was just here a month ago and had a cardiac catheterization which was negative for coronary disease. Past Medical History Cardiovascular: CAD, HTN Hepatobiliary: Hep A/B/C (C) Endocrine: Other (Hypoglycemia) Past Surgical History Past Surgical History: Other (Left third and fourth finger amputation, cardiac catheterization) Family History Family History: CAD Social History Social History , ex-smoker, occasional alcohol Current Medications Current Medications Current Medications Iohexol (Omnipaque 300 Mg/ml) 75 ml 1X ONCE IV Last administered on 07/30/21at 09:30; Start 07/30/21 at 09:30; Stop 07/30/21 at 09:31; Status DC Info (CONTRAST GIVEN -- Rx MONITORING) 1 each PRN DAILY PRN MC SEE COMMENTS; Start 07/30/21 at 09:30; Stop 08/01/21 at 09:29 Ondansetron HCl (Zofran) 4 mg PRN Q8HRS PRN IVP NAUSEA/VOMITING; Start 07/30/21 at 09:45; Stop 07/31/21 at 09:44 Active Scripts Active Reported Aspirin 81 Mg Tab.chew 1 Tab PO DAILY Lisinopril 10 Mg Tablet 1 Tab PO DAILY Allergies Allergies: Coded Allergies: codeine (Verified Allergy, Severe, hives, 07/30/21) ROS Review of System Negative for fever, chills, weight loss, shortness of breath, chest pain, indigestion, hematochezia, melena, and dysuria. Full 14-point review of systems is negative. Physical Exam Physical Examination General: Well-developed, well-nourished white male in no acute distress HEENT: Normocephalic andatraumatic.Temporal arteriespulsatile and nontender. Neck: Supple without bruit, no meningismus Musculoskeletal: Stability:see neurologic. Gait exam:see neurologic. Tone:see neurologic.Strength:see neurologic. Neurological: Mental Status:intact, orientation, memory, attention span/concentration, language, fund of knowledge normal. Cranial Nerves:Pupils equal and reactive to light, extraocular movements areintact, visual almeida are full to c onfrontation. Facial sensation is normal. There is no facial asymmetry. Vestibulo-ocular reflex is intact. Palate elevates and tongue protrudes in midline. All other cranial related problems are negative except as mentioned before.Reflexes:2+ and symmetric with flexor plantar responses. Motor:5/5 strength with normal tone and bulk. Coordination:Finger-nose finger and hpid-sw-pvkj testing are normal. Rapid alternating movements and fine finger movements are intact. Gait:Normal, including tandem. Sensory:Right hemihypesthesia, face, arm, leg. Vitals VITALS Vital Signs Date Time Temp Pulse Resp B/P (MAP) Pulse Ox O2 Delivery O2 Flow Rate FiO2 07/30/21 08:04 98.0 68 16 146/77 (100) 97 Room Air 98.0 Labs Labs Laboratory Tests Test 07/30/21 08:29 07/30/21 08:31 Glucose (Fingerstick) 112 mg/dL (70-99) White Blood Count 6.2 x10^3/uL (4.0-11.0) Red Blood Count 5.01 x10^6/uL (4.30-5.70) Hemoglobin 14.8 g/dL (13.0-17.5) Hematocrit 45.6 % (39.0-53.0) Mean Corpuscular Volume 91 fL (79-100) Mean Corpuscular Hemoglobin 30 pg (25-35) Mean Corpuscular Hemoglobin Concent 33 g/dL (31-37) Red Cell Distribution Width 13.5 % (11.5-14.5) Platelet Count 225 x10^3/uL (140-400) Neutrophils (%) (Auto) 61 % (31-73) Lymphocytes (%) (Auto) 24 % (24-48) Monocytes (%) (Auto) 12 % (0-9) Eosinophils (%) (Auto) 2 % (0-3) Basophils (%) (Auto) 1 % (0-3) Neutrophils # (Auto) 3.8 x10^3/uL (1.8-7.7) Lymphocytes # (Auto) 1.4 x10^3/uL (1.0-4.8) Monocytes # (Auto) 0.7 x10^3/uL (0.0-1.1) Eosinophils # (Auto) 0.1 x10^3/uL (0.0-0.7) Basophils # (Auto) 0.1 x10^3/uL (0.0-0.2) Prothrombin Time 13.2 SEC (11.7-14.0) Prothromb Time International Ratio 1.0 (0.8-1.1) Activated Partial Thromboplast Time 32 SEC (24-38) Sodium Level 141 mmol/L (136-145) Potassium Level 3.9 mmol/L (3.5-5.1) Chloride Level 107 mmol/L (98-107) Carbon Dioxide Level 26 mmol/L (21-32) Anion Gap 8 (6-14) Blood Urea Nitrogen 15 mg/dL (8-26) Creatinine 1.2 mg/dL (0.7-1.3) Estimated GFR (Cockcroft-Gault) 61.6 BUN/Creatinine Ratio 13 (6-20) Glucose Level 110 mg/dL (70-99) Calcium Level 9.3 mg/dL (8.5-10.1) Total Bilirubin 0.7 mg/dL (0.2-1.0) Aspartate Amino Transf (AST/SGOT) 21 U/L (15-37) Alanine Aminotransferase (ALT/SGPT) 38 U/L (16-63) Alkaline Phosphatase 143 U/L (46-116) Troponin I High Sensitivity 4 ng/L (4-75) NJ-Nmd-S-Type Natriuretic Peptide 29 pg/mL (0-124) Total Protein 7.3 g/dL (6.4-8.2) Albumin 4.0 g/dL (3.4-5.0) Albumin/Globulin Ratio 1.2 (1.0-1.7) Laboratory Tests Test 07/30/21 08:29 07/30/21 08:31 Glucose (Fingerstick) 112 mg/dL (70-99) White Blood Count 6.2 x10^3/uL (4.0-11.0) Red Blood Count 5.01 x10^6/uL (4.30-5.70) Hemoglobin 14.8 g/dL (13.0-17.5) Hematocrit 45.6 % (39.0-53.0) Mean Corpuscular Volume 91 fL (79-100) Mean Corpuscular Hemoglobin 30 pg (25-35) Mean Corpuscular Hemoglobin Concent 33 g/dL (31-37) Red Cell Distribution Width 13.5 % (11.5-14.5) Platelet Count 225 x10^3/uL (140-400) Neutrophils (%) (Auto) 61 % (31-73) Lymphocytes (%) (Auto) 24 % (24-48) Monocytes (%) (Auto) 12 % (0-9) Eosinophils (%) (Auto) 2 % (0-3) Basophils (%) (Auto) 1 % (0-3) Neutrophils # (Auto) 3.8 x10^3/uL (1.8-7.7) Lymphocytes # (Auto) 1.4 x10^3/uL (1.0-4.8) Monocytes # (Auto) 0.7 x10^3/uL (0.0-1.1) Eosinophils # (Auto) 0.1 x10^3/uL (0.0-0.7) Basophils # (Auto) 0.1 x10^3/uL (0.0-0.2) Prothrombin Time 13.2 SEC (11.7-14.0) Prothromb Time International Ratio 1.0 (0.8-1.1) Activated Partial Thromboplast Time 32 SEC (24-38) Sodium Level 141 mmol/L (136-145) Potassium Level 3.9 mmol/L (3.5-5.1) Chloride Level 107 mmol/L (98-107) Carbon Dioxide Level 26 mmol/L (21-32) Anion Gap 8 (6-14) Blood Urea Nitrogen 15 mg/dL (8-26) Creatinine 1.2 mg/dL (0.7-1.3) Estimated GFR (Cockcroft-Gault) 61.6 BUN/Creatinine Ratio 13 (6-20) Glucose Level 110 mg/dL (70-99) Calcium Level 9.3 mg/dL (8.5-10.1) Total Bilirubin 0.7 mg/dL (0.2-1.0) Aspartate Amino Transf (AST/SGOT) 21 U/L (15-37) Alanine Aminotransferase (ALT/SGPT) 38 U/L (16-63) Alkaline Phosphatase 143 U/L (46-116) Troponin I High Sensitivity 4 ng/L (4-75) SI-Dzc-L-Type Natriuretic Peptide 29 pg/mL (0-124) Total Protein 7.3 g/dL (6.4-8.2) Albumin 4.0 g/dL (3.4-5.0) Albumin/Globulin Ratio 1.2 (1.0-1.7) Images Images CT brain without contrast today HISTORY: Right arm numbness, code stroke CT scan of the brain was done without contrast. Comparison is made with a study from May 08. There is no intracranial hemorrhage. Ventricles are normal in size. There is no mass effect or shift of the midline. There is a questionable area slight decreased density in the left periventricular white matter although a subtle asymmetry appears evident on the old study as well, probably chronic finding or asymmetric chronic white matter changes. Definite acute CVA is not identified. Follow-up with MRI could be of benefit. Ventricles are normal in size. There is no mass effect or shift of the midline. IMPRESSION: 1. Possible subtle area of decreased density in the white matter although possibly evident on the old study possibly a chronic finding. 2. No definite acute CVA noted. 3. No intracranial hemorrhage. Echocardiogam, 06/26/21: LEFT VENTRICLE The left ventricle is normal size. There is normal left ventricular wall thickness. The left ventricular systolic function is normal and the ejection fraction is within normal range. LV ejection fraction of 55 to 60%. There is normal LV segmental wall motion. The left ventricular diastolic function and filling is normal for age. RIGHT VENTRICLE The right ventricle is normal size. There is normal right ventricular wall thickness. The right ventricular systolic function is normal. ATRIA The left atrium size is normal. The right atrium size is normal. The interatrial septum is intact with no evidence for an atrial septal defect or patent foramen ovale as noted on 2-D or Doppler imaging. AORTIC VALVE The aortic valve is normal in structure and function. Doppler and Color Flow revealed no significant aortic regurgitation. There is no significant aortic valvular stenosis. MITRAL VALVE The mitral valve is normal in structure and function. There is no evidence of mitral valve prolapse. There is no mitral valve stenosis. Doppler and Color-flow revealed mild mitral regurgitation. TRICUSPID VALVE The tricuspid valve is normal in structure and function. Doppler and Color Flow revealed mild tricuspid regurgitation. Estimated PAP 30 mmHg. There is no tricuspid valve stenosis. PULMONIC VALVE The pulmonary valve is normal in structure and function. Doppler and Color Flow revealed trace to mild pulmonic valvular regurgitation. GREAT VESSELS The aortic root is normal in size. The ascending aorta is normal in size. The IVC is normal in size and collapses >50% with inspiration. PERICARDIAL EFFUSION There is no evidence of significant pericardial effusion. Critical Notification Critical Value: No <Conclusion> The left ventricle is normal size. The left ventricular systolic function is normal and the ejection fraction is within normal range. LV ejection fraction of 55 to 60%. Doppler and Color Flow revealed no significant aortic regurgitation. There is no significant aortic valvular stenosis. Doppler and Color-flow revealed mild mitral regurgitation. Doppler and Color Flow revealed mild tricuspid regurgitation. Estimated PAP 30 mmHg. Assessment/Plan Assessment/Plan Impression: Right-sided hemihypesthesia concerning for a left thalamic stroke. CT head shows possible changes in the middle cerebral artery distribution. Hypertension could also explain the symptoms. Mild chest pain and shortness of breath, just here a month ago with negative coronary angiogram Hypertension No diabetes Recommendations: Discussed with patient as well as Dr. Dasilva, risks, benefits, alternatives, side effects. Clinically this is a very small stroke, there is concern for left middle cerebral artery infarct, blood pressure is elevated for the patient. Patient does not want to pursue alteplase, and I am agreeable to not pushing for this. MRI of the brain CT angiogram Cardiology consult Tatian Aspirin Statin Rehabilitation screening Also see stroke orders Thank you for letting me help with the patient's care. JENNY CORRIGAN MD Jul 30, 2021 10:04
--- NOTE | 2021-07-30 10:16 | RAD ---
CT arteriogram of the carotid arteries, CT arteriogram of the brain. HISTORY: Right arm numbness. CT arteriogram the carotid arteries was done using 75 mL Omnipaque 300 contrast. Lung apices are free of infiltrates. Origins the great vessels at the aortic arch are widely patent. There are normal luly tebral arteries both of which supply flow to the basilar artery. There is mild plaque at the carotid bifurcation on each side without significant stenosis in the internal carotid arteries. Internal [place] tid arteries are tortuous. There is degenerative disc disease in the cervical spine. Three-dimensiona l images were reconstructed. Sinuses are clear. Thyroid is homogeneous. There is no adenopathy in the neck. IMPRESSION: 1. Mild plaque at the carotid bifurcations on each side without significant stenosis. 2. Normal bilateral vertebral arteries. End impression CT arteriogram of the brain CT arteriogram of the brain was done following CT arteriogram the carotid arteries. Three-dimensional images were reconstructed. There is no major vessel occlusion. There is no intracranial aneurysm. Th ere is plaque at the carotid siphon without severe stenosis. There is no mass effect or shift of the midline. There is no pathologic enhancement. Intracranial veins are patent. IMPRESSION: 1. No major vessel occlusion noted. 2. No pathologic enhancement noted 3. No other acute finding. FOR INTERNAL CODING PURPOSES Critical result: Findings discussed with PRASANNA BRAVO DO at 07/30/2021 10:11 AM. RESULT CODE: (C) PQRS Compliance Statement: One or more of the following individualized dose reduction techniques were utilized for this examinat ion: 1. Automated exposure control 2. Adjustment of the mA and/or kV according to patient size 3. Use of iterative reconstruction technique Electronically signed by: Jax Mancera MD (07/30/2021 10:13 AM) [id number]
[2021-07-30 10:25] LABS: CHOLESTEROL/HDL RATIO 2.2
[2021-07-30 11:30] VITALS: BP 169/85
--- NOTE | 2021-07-30 12:00 | HP ---
DATE OF SERVICE: 07/30/2021 ADMIT DATE: 07/30/2021 CHIEF COMPLAINT: Shortness of breath, chest discomfort, arm numbness. HISTORY OF PRESENT ILLNESS: The patient is a pleasant 61-year-old male who presented to the ER with above chief complaints. It has been occurring for about 3 days. This morning, he woke up with some right arm numbness. He was concerned he might be having some stroke symptoms. I discussed the case with ER physician. We have consulted Dr. Singh. He is concerned he might have had a right-sided alex[place]ria prosthesis concerning for a left thalamic stroke. The patient has been admitted. PAST MEDICAL HISTORY: CAD, hypertension, hepatitis C, hep B and hep A, hypoglycemia, left third and fourth finger amputation, cardiac stents. ALLERGIES: CODEINE. FAMILY HISTORY: Coronary artery disease. SOCIAL HISTORY: He is . He quit smoking. No drink or drugs. MEDICATIONS: Reviewed. Please refer to the MRAD. REVIEW OF SYSTEMS: GENERAL: No history of weight change, weakness or fevers. SKIN: No bruising, hair changes or rashes. EYES: No blurred, double or loss of vision. NOSE AND THROAT: No history of nosebleeds, hoarseness or sore throat. HEART: No history of palpitations, chest pain or shortness of breath on exertion. LUNGS: Denies cough, hemoptysis, wheezing or shortness of breath. GASTROINTESTINAL: Denies changes in appetite, nausea, vomiting, diarrhea or constipation. GENITOURINARY: No history of frequency, urgency, hesitancy or nocturia. NEUROLOGIC: Denies history of numbness, tingling, tremor or weakness. PSYCHIATRIC: No history of panic, anxiety or depression. ENDOCRINE: No history of heat or cold intolerance, polyuria or polydipsia. EXTREMITIES: Denies muscle weakness, joint pain, pain on walking or stiffness. PHYSICAL EXAMINATION: VITALS: Within normal limits and are stable. GENERAL: No apparent distress. Alert and oriented. HEENT: Normal cephalic atraumatic, external auditory canals are patent EYES: Extraocular muscles are intact, pupils are equally round and reactive to light and accommodation MUSCULOSKELETAL: Well developed, well nourished, good range of motion ENDOCRINE: No thyromegaly was palpated LYMPHATICS: No cervical chain or axillary nodes were noted HEMATOPOIETIC: No bruising NECK: Supple, no JVD, no thyromegaly was noted. LUNGS: Clear to auscultation in all lung almeida without rhonchi or wheezing. HEART: RRR, S1, S2 present. Peripheral pulses intact, no obvious murmurs were noted. ABDOMEN: Soft, nontender. Positive bowel sounds no organomegaly, normal bowel sounds. EXTREMITIES: Without any cyanosis, clubbing, or edema. Pedal pulses intact, Homans sign is negative. NEUROLOGIC: Normal speech, normal tone. A and O x 3, moves all extremities, no obvious focal deficits. PSYCHIATRIC: Normal affect, normal mood. Stable. SKIN: No ulcerations or rashes, good skin turgor, no jaundice. VASCULAR: Good capillary refill, neurovascular bundle appears to be intact. LABORATORY DATA: Hematology is normal. Electrolytes are normal. CT of the head shows possible subtle area of decreased density in the white matter, possibly a chronic finding, but no acute strokes. ASSESSMENT AND PLAN: Possible stroke. The patient will be admitted. We will consult Dr. Singh. He has seen the patient. We certainly agree and appreciate his input. Daily aspirin. Physical therapy and occupational therapy, home meds. Deep venous thrombosis prophylaxis. Full code. Echocardiogram, MRI of the brain. VIVIANA/SYLVIE DR: VIVIANA/stacey TID: [id number]
--- NOTE | 2021-07-30 13:09 | PDOC2 ---
MARTA WHELAN JACQUARD CARD CUTTER 07/30/21 1309: CARDIAC CONSULT DATE OF CONSULT Date of Consult DATE: 07/30/21 TIME: 12:43 REASON FOR CONSULT Reason for Consult: Chest pain, dyspnea REFERRING PHYSICIAN Referring Physician: Samantha SOURCE Source: Chart review, Patient HISTORY OF PRESENT ILLNESS HISTORY OF PRESENT ILLNESS This is a pleasant 61 yo male admitted for complains of right arm numbness and SOA. No jaw tightness and no chest discomfort for me . His SOA is likely associated with PND as this was noted while he was sleeping and restless accdg to as she told him and was SOA upon waking up. No palpitations. He trew up this morning after intractable coughing. 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 No recent falls or injury. No hx of CAD, VTE or arrhythmias. He takes BP med lisinopril. No recreational drug use. Positive for daytime somnolence, snoring and morning LAZ[place]O. PAST MEDICAL HISTORY Cardiovascular: HTN GI: GERD Hepatobiliary: Other (Hep C) PAST SURGICAL HISTORY Past Surgical History: No pertinent history FAMILY HISTORY Family History: Coronary Artery Disease (mother) SOCIAL HISTORY Smoke: Quit ALCOHOL: none Drugs: None Lives: with Family CURRENT MEDICATIONS CURRENT MEDICATIONS Current Medications Medications (Trade) Dose Ordered Sig/Kristy Route PRN Reason Start Time Stop Time Status Last Admin Dose Admin Iohexol (Omnipaque 300 Mg/ml) 75 ml 1X ONCE IV 07/30/21 09:30 07/30/21 09:31 DC 07/30/21 09:30 ALLERGIES ALLERGIES: Coded Allergies: codeine (Verified Allergy, Severe, hives, 07/30/21) ROS Review of System 14 point ROS evaluated with pertinent positives noted per HPI PHYSICAL EXAM General: Alert, Oriented X3, Cooperative, No acute distress HEENT: Atraumatic, Mucous membr. moist/pink Lungs: Clear to auscultation, Normal air movement Heart: Regular rate (SR), Normal S1, Normal S2, No murmurs Abdomen: Soft, No tenderness Extremities: No cyanosis, No edema Skin: No breakdown, No significant lesion Neuro: Normal speech, Sensation intact Psych/Mental Status: Mental status NL, Mood NL MUSCULOSKELETAL: Osteoarthritic changes both hands VITALS/I&O VITALS/I&O: Vital Signs Date Time Temp Pulse Resp B/P (MAP) Pulse Ox O2 Delivery O2 Flow Rate FiO2 07/30/21 12:24 Room Air 07/30/21 11:30 97.6 52 17 169/85 (113) 98 97.6 LABS Lab: Laboratory Tests Test 07/30/21 08:29 07/30/21 08:31 Glucose (Fingerstick) 112 mg/dL (70-99) H White Blood Count 6.2 x10^3/uL (4.0-11.0) Red Blood Count 5.01 x10^6/uL (4.30-5.70) Hemoglobin 14.8 g/dL (13.0-17.5) Hematocrit 45.6 % (39.0-53.0) Mean Corpuscular Volume 91 fL (79-100) Mean Corpuscular Hemoglobin 30 pg (25-35) Mean Corpuscular Hemoglobin Concent 33 g/dL (31-37) Red Cell Distribution Width 13.5 % (11.5-14.5) Platelet Count 225 x10^3/uL (140-400) Neutrophils (%) (Auto) 61 % (31-73) Lymphocytes (%) (Auto) 24 % (24-48) Monocytes (%) (Auto) 12 % (0-9) H Eosinophils (%) (Auto) 2 % (0-3) Basophils (%) (Auto) 1 % (0-3) Neutrophils # (Auto) 3.8 x10^3/uL (1.8-7.7) Lymphocytes # (Auto) 1.4 x10^3/uL (1.0-4.8) Monocytes # (Auto) 0.7 x10^3/uL (0.0-1.1) Eosinophils # (Auto) 0.1 x10^3/uL (0.0-0.7) Basophils # (Auto) 0.1 x10^3/uL (0.0-0.2) Prothrombin Time 13.2 SEC (11.7-14.0) Prothrombin Time INR 1.0 (0.8-1.1) Activated Partial Thromboplast Time 32 SEC (24-38) Sodium Level 141 mmol/L (136-145) Potassium Level 3.9 mmol/L (3.5-5.1) Chloride Level 107 mmol/L (98-107) Carbon Dioxide Level 26 mmol/L (21-32) Anion Gap 8 (6-14) Blood Urea Nitrogen 15 mg/dL (8-26) Creatinine 1.2 mg/dL (0.7-1.3) Estimated GFR (Cockcroft-Gault) 61.6 BUN/Creatinine Ratio 13 (6-20) Glucose Level 110 mg/dL (70-99) H Calcium Level 9.3 mg/dL (8.5-10.1) Total Bilirubin 0.7 mg/dL (0.2-1.0) Aspartate Amino Transferase (AST) 21 U/L (15-37) Alanine Aminotransferase (ALT) 38 U/L (16-63) Alkaline Phosphatase 143 U/L (46-116) H Troponin I High Sensitivity 4 ng/L (4-75) WW-Gln-Y-Type Natriuretic Peptide 29 pg/mL (0-124) Total Protein 7.3 g/dL (6.4-8.2) Albumin 4.0 g/dL (3.4-5.0) Albumin/Globulin Ratio 1.2 (1.0-1.7) Triglycerides Level 48 mg/dL (0-150) Cholesterol Level 144 mg/dL (0-200) LDL Cholesterol, Calculated 68 mg/dL (0-100) VLDL Cholesterol, Calculated 10 mg/dL (0-40) Non-HDL Cholesterol Calculated 78 mg/dL (0-129) HDL Cholesterol 66 mg/dL (40-60) H Cholesterol/HDL Ratio 2.2 Laboratory Tests 07/30/21 08:31 Laboratory Tests 07/30/21 08:31 ECHOCARDIOGRAM ECHOCARDIOGRAM <Conclusion> The left ventricle is normal size. The left ventricular systolic function is normal and the ejection fraction is within normal range. LV ejection fraction of 55 to 60%. Doppler and Color Flow revealed no significant aortic regurgitation. There is no significant aortic valvular stenosis. Doppler and Color-flow revealed mild mitral regurgitation. Doppler and Color Flow revealed mild tricuspid regurgitation. Estimated PAP 30 mmHg. DATE: 06/26/21 [id number] HEART CATH HEART CATH LEFT VENTRICULOGRAPHY: *Normal LV function. EF 70% in BARRY 30 degree projection with normal wall motion. *No mitral regurgitation. CORONARY ANGIOGRAPHY: RCA is a moderate caliber vessel with normal angiographic appearance. LM is a moderate to caliber vessel with normal angiographic appearance. LAD is a moderate caliber vessel with normal angiographic appearance. LCx is a moderate caliber vessel with normal angiographic appearance. Conclusion 1. Normal coronary arteries. Recommendations Aggressive Medical Therapy DATE: 07/09/152000 ASSESSMENT/PLAN ASSESSMENT/PLAN 1. Possible stroke with right arm paresthesia 2. Dyspnea: associated with PND/snoring/daytime somnolence likely sleep apnea. Doubt ACS. Denies CP for me and METS is adequate 3. HTN: controlled 4. Posttussive vomiting Recommendations 1. Follow neurology recommendations 2. He will need outpt sleep study but he does not have health insurance and told me that he would not be able to afford such testing. 3. Continue BP med. Repeat trop and will obtain EKG, He had LHC in 2016 which did not show any CAD. Could consider future outpt stress echo which could be done at but repeated that he would be able to afford this 4. Supportive care LULA ROLON MD 07/30/21 1804: CARDIAC CONSULT ASSESSMENT/PLAN ASSESSMENT/PLAN The patient was seen and interviewed as well as examined at the bedside. The [facility] rt was reviewed. The case was discussed. Agree with the plan of care. Plan for a limited echo with bubble study to rule out PFO. MARTA WHELAN APRN Jul 30, 2021 13:09 LULA ROLON MD Jul 30, 2021 18:04
[2021-07-30] MEDS: ASPIRIN ENTERIC COATED 325 MG TABLET.DR. PO SCH (13:19)
--- NOTE | 2021-07-30 13:48 | EKG ---
[facility] [address] [place] [address] Test Date: 2021-07-30 Test Time: 08:16:54 Pat Name: SAM WATTERS Department: Room: [facility] Gender: M Ballistics Tester: Luiz : 1960 Requested By: MARTA WHELAN Order Number: [id number] Reading MD: Ford Srivastava Measurements Intervals [place] Rate: 70 P: 0 UT: 164 QRS: -9 QRSD: 90 T: -3 QT: 408 QTc: 443 Interpretive Statements SINUS RHYTHM LEFTWARD AXIS Electronically Signed On 08-10-2021 9:51:20 CDT by Ford Srivastava
[2021-07-30] MEDS: LISINOPRIL 10 MG TABLET PO SCH (14:01)
[2021-07-30 15:00] VITALS: BP 157/77
--- NOTE | 2021-07-30 16:17 | RAD ---
MRI BRAIN WO Date: 07/30/2021 2:57 PM Indication: right sided numbness Comparison: CT 07/30/2021. Technique: Multiplanar multisequence MRI of the brain was performed without intravenous contrast usin g the standard protocol. Findings: No acute infarct. No acute or chronic hemorrhage. The ventricles are normal in size and configuration without hydrocephalus. Focus of T2/FLAIR hyperintensity in the left pericallosal white matter. The scalp and calvarium are normal. The pituitary and sella are normal. No Chiari malformation. The v isualized upper cervical spine is normal. The visualized orbits and globes are normal. The visualized paranasal sinuses are clear. The mastoid air cells are clear. Normal flow voids within the vertebral, basilar, and internal carotid arteries indicating patency. IMPRESSION: 1. No acute infarct, hemorrhage, mass, or hydrocephalus. 2. Focus of FLAIR hyperintensity in the left pericallosal white matter is nonspecific but most often seen with chronic small vessel ischemic disease in this age group. Other considerations would include chronic migraines or demyelinating disease, in the appropriate clinical setting. Electronically signed by: Shyam Figueredo MD (07/30/2021 4:15 PM) [facility]
[2021-07-30 19:35] VITALS: BP 145/76
[2021-07-30] MEDS ORDERED: ATORVASTATIN CALCIUM 40 MG TABLET. PO SCH (21:00)
[2021-07-30 23:15] VITALS: BP 139/70
[2021-07-31 01:09] LABS: HEMOGLOBIN A1C 5.7 % (4.8-5.6)
[2021-07-31 03:10] VITALS: BP 109/64
[2021-07-31 05:55] LABS: BASO # 0.1 x10^3/uL (0.0-0.2); BASO % 1 % (0-3); EOS # 0.2 x10^3/uL (0.0-0.7); EOS % 3 % (0-3); HEMOGLOBIN 14.8 g/dL (13.0-17.5); LYMPH % 26 % (24-48); MEAN CORPUSCULAR HEMOGLOBIN 30 pg (25-35); MEAN CORPUSCULAR HGB CONC 32 g/dL (31-37); MEAN CORPUSCULAR VOLUME 92 fL (79-100); MONO # 0.9 x10^3/uL (0.0-1.1); MONO % 11 % (0-9); NEUT # 4.7 x10^3/uL (1.8-7.7); NEUT % 59 % (31-73); PLATELET COUNT 217 x10^3/uL (140-400); RED CELL DISTRIBUTION WIDTH 13.5 % (11.5-14.5)
[2021-07-31 06:02] LABS: CALCIUM 8.7 mg/dL (8.5-10.1); CREATININE 1.2 mg/dL (0.7-1.3); GFR 61.6
[2021-07-31 07:00] VITALS: BP 128/69
[2021-07-31] MEDS: ASPIRIN ENTERIC COATED 325 MG TABLET.DR. PO SCH (08:45)
[2021-07-31] MEDS: LISINOPRIL 10 MG TABLET PO SCH (08:46)
--- NOTE | 2021-07-31 10:50 | PDOC ---
PROGRESS NOTES Date of Service DATE: 07/31/21 TIME: 10:45 Assessment Problems Medical Problems: (1) Dyspnea Status: Acute (2) Right arm numbness Status: Acute Right-sided hemihypesthesia concerning for a left thalamic stroke. CT head sh ows possible changes in the middle cerebral artery distribution. However, CT angiogram and brain MRI are negative. Hypertension could also explain the symptoms. Also consider nonorganic causes. 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 Oriented to time, place and person. PERRL. EOMI. CN: no focal findings. Muscle tone: normal. Muscle strength: 5/5 DTR: 2+ Plantar reflex: Flexor Gait: A little unsteady. Sensory exam: Hypesthesia on right arm, face, leg, variable demarcation on the torso. No cerebellar signs elicited. Review of Relevant I have reviewed the following items chase (where applicable) has been applied. Labs Laboratory Tests Test 07/30/21 08:29 07/30/21 08:31 07/30/21 13:20 07/31/21 04:50 Glucose (Fingerstick) 112 mg/dL (70-99) White Blood Count 6.2 x10^3/uL (4.0-11.0) 8.0 x10^3/uL (4.0-11.0) Red Blood Count 5.01 x10^6/uL (4.30-5.70) 5.00 x10^6/uL (4.30-5.70) Hemoglobin 14.8 g/dL (13.0-17.5) 14.8 g/dL (13.0-17.5) Hematocrit 45.6 % (39.0-53.0) 46.0 % (39.0-53.0) Mean Corpuscular Volume 91 fL (79-100) 92 fL (79-100) Mean Corpuscular Hemoglobin 30 pg (25-35) 30 pg (25-35) Mean Corpuscular Hemoglobin Concent 33 g/dL (31-37) 32 g/dL (31-37) Red Cell Distribution Width 13.5 % (11.5-14.5) 13.5 % (11.5-14.5) Platelet Count 225 x10^3/uL (140-400) 217 x10^3/uL (140-400) Neutrophils (%) (Auto) 61 % (31-73) 59 % (31-73) Lymphocytes (%) (Auto) 24 % (24-48) 26 % (24-48) Monocytes (%) (Auto) 12 % (0-9) 11 % (0-9) Eosinophils (%) (Auto) 2 % (0-3) 3 % (0-3) Basophils (%) (Auto) 1 % (0-3) 1 % (0-3) Neutrophils # (Auto) 3.8 x10^3/uL (1.8-7.7) 4.7 x10^3/uL (1.8-7.7) Lymphocytes # (Auto) 1.4 x10^3/uL (1.0-4.8) 2.0 x10^3/uL (1.0-4.8) Monocytes # (Auto) 0.7 x10^3/uL (0.0-1.1) 0.9 x10^3/uL (0.0-1.1) Eosinophils # (Auto) 0.1 x10^3/uL (0.0-0.7) 0.2 x10^3/uL (0.0-0.7) Basophils # (Auto) 0.1 x10^3/uL (0.0-0.2) 0.1 x10^3/uL (0.0-0.2) Prothrombin Time 13.2 SEC (11.7-14.0) Prothromb Time International Ratio 1.0 (0.8-1.1) Activated Partial Thromboplast Time 32 SEC (24-38) Sodium Level 141 mmol/L (136-145) 141 mmol/L (136-145) Potassium Level 3.9 mmol/L (3.5-5.1) 4.0 mmol/L (3.5-5.1) Chloride Level 107 mmol/L (98-107) 106 mmol/L (98-107) Carbon Dioxide Level 26 mmol/L (21-32) 26 mmol/L (21-32) Anion Gap 8 (6-14) 9 (6-14) Blood Urea Nitrogen 15 mg/dL (8-26) 20 mg/dL (8-26) Creatinine 1.2 mg/dL (0.7-1.3) 1.2 mg/dL (0.7-1.3) Estimated GFR (Cockcroft-Gault) 61.6 61.6 BUN/Creatinine Ratio 13 (6-20) Glucose Level 110 mg/dL (70-99) 101 mg/dL (70-99) Hemoglobin A1c 5.7 % (4.8-5.6) Calcium Level 9.3 mg/dL (8.5-10.1) 8.7 mg/dL (8.5-10.1) Total Bilirubin 0.7 mg/dL (0.2-1.0) Aspartate Amino Transf (AST/SGOT) 21 U/L (15-37) Alanine Aminotransferase (ALT/SGPT) 38 U/L (16-63) Alkaline Phosphatase 143 U/L (46-116) Troponin I High Sensitivity 4 ng/L (4-75) 5 ng/L (4-75) AK-Xkg-S-Type Natriuretic Peptide 29 pg/mL (0-124) Total Protein 7.3 g/dL (6.4-8.2) Albumin 4.0 g/dL (3.4-5.0) Albumin/Globulin Ratio 1.2 (1.0-1.7) Triglycerides Level 48 mg/dL (0-150) Cholesterol Level 144 mg/dL (0-200) LDL Cholesterol, Calculated 68 mg/dL (0-100) VLDL Cholesterol, Calculated 10 mg/dL (0-40) Non-HDL Cholesterol Calculated 78 mg/dL (0-129) HDL Cholesterol 66 mg/dL (40-60) Cholesterol/HDL Ratio 2.2 Laboratory Tests Test 07/30/21 13:20 07/31/21 04:50 Troponin I High Sensitivity 5 ng/L (4-75) White Blood Count 8.0 x10^3/uL (4.0-11.0) Red Blood Count 5.00 x10^6/uL (4.30-5.70) Hemoglobin 14.8 g/dL (13.0-17.5) Hematocrit 46.0 % (39.0-53.0) Mean Corpuscular Volume 92 fL (79-100) Mean Corpuscular Hemoglobin 30 pg (25-35) Mean Corpuscular Hemoglobin Concent 32 g/dL (31-37) Red Cell Distribution Width 13.5 % (11.5-14.5) Platelet Count 217 x10^3/uL (140-400) Neutrophils (%) (Auto) 59 % (31-73) Lymphocytes (%) (Auto) 26 % (24-48) Monocytes (%) (Auto) 11 % (0-9) Eosinophils (%) (Auto) 3 % (0-3) Basophils (%) (Auto) 1 % (0-3) Neutrophils # (Auto) 4.7 x10^3/uL (1.8-7.7) Lymphocytes # (Auto) 2.0 x10^3/uL (1.0-4.8) Monocytes # (Auto) 0.9 x10^3/uL (0.0-1.1) Eosinophils # (Auto) 0.2 x10^3/uL (0.0-0.7) Basophils # (Auto) 0.1 x10^3/uL (0.0-0.2) Sodium Level 141 mmol/L (136-145) Potassium Level 4.0 mmol/L (3.5-5.1) Chloride Level 106 mmol/L (98-107) Carbon Dioxide Level 26 mmol/L (21-32) Anion Gap 9 (6-14) Blood Urea Nitrogen 20 mg/dL (8-26) Creatinine 1.2 mg/dL (0.7-1.3) Estimated GFR (Cockcroft-Gault) 61.6 Glucose Level 101 mg/dL (70-99) Calcium Level 8.7 mg/dL (8.5-10.1) Medications Current Medications Iohexol (Omnipaque 300 Mg/ml) 75 ml 1X ONCE IV Last administered on 07/30/21at 09:30; Start 07/30/21 at 09:30; Stop 07/30/21 at 09:31; Status DC Info (CONTRAST GIVEN -- Rx MONITORING) 1 each PRN DAILY PRN MC SEE COMMENTS; Start 07/30/21 at 09:30; Stop 08/01/21 at 09:29 Ondansetron HCl (Zofran) 4 mg PRN Q8HRS PRN IVP NAUSEA/VOMITING; Start 07/30/21 at 09:45; Stop 07/31/21 at 09:44; Status DC Atorvastatin Calcium (Lipitor) 80 mg QHS PO Last administered on 07/30/21at 21:25; Start 07/30/21 at 21:00 Acetaminophen (Tylenol) 650 mg PRN Q6HRS PRN PO MILD PAIN / TEMP > 100.3'F; Start 07/30/21 at 10:00 Aspirin (Ecotrin) 325 mg DAILYWBKFT PO Last administered on 07/31/21at 08:45; Start 07/30/21 at 10:00 Aspirin (Aspirin Rectal Supp) 300 mg PRN DAILY PRN LA IF UNABLE TO TAKE PO; Start 07/30/21 at 10:00 Lisinopril (Prinivil) 10 mg DAILY PO Last administered on 07/31/21at 08:46; Start 07/30/21 at 14:00 Active Scripts Active Reported Aspirin 81 Mg Tab.chew 1 Tab PO DAILY Lisinopril 10 Mg Tablet 1 Tab PO DAILY Vitals/I & O Vital Sign - Last 24 Hours 07/30/21 07/30/21 07/30/21 07/30/21 11:03 11:30 12:24 14:01 Temp 97.6 97.6 Pulse 52 52 52 Resp 19 17 B/P (MAP) 163/84 (110) 169/85 (113) 169/85 Pulse Ox 98 98 O2 Delivery Room Air Room Air Room Air 07/30/21 07/30/21 07/30/21 07/30/21 15:00 19:35 20:00 23:15 Temp 96.9 97.7 98.0 96.9 97.7 98.0 Pulse 63 55 75 Resp 17 18 18 B/P (MAP) 157/77 (103) 145/76 (99) 139/70 (93) Pulse Ox 96 96 97 O2 Delivery Room Air Room Air Room Air Room Air 07/31/21 07/31/21 07/31/21 07/31/21 03:10 07:00 08:00 08:46 Temp 97.9 97.5 97.9 97.5 Pulse 58 70 60 Resp 18 20 B/P (MAP) 109/64 (79) 128/69 (88) 128/69 Pulse Ox 96 91 O2 Delivery Room Air Room Air Room Air Intake and Output 07/30/21 07/30/21 07/31/21 15:00 23:00 07:00 Intake Total 300 ml 420 ml Output Total 300 ml Balance 0 ml 420 ml Images MRI BRAIN WO 07/30/2021 2:57 PM No acute infarct. No acute or chronic hemorrhage. The ventricles are normal in size and configuration without hydrocephalus. Focus of T2/FLAIR hyperintensity in the left pericallosal white matter. The scalp and calvarium are normal. The pituitary and sella are normal. No Chiari malformation. The visualized upper cervical spine is normal. The visualized orbits and globes are normal. The visualized paranasal sinuses are clear. The mastoid air cells are clear. Normal flow voids within the vertebral, basilar, and internal carotid arteries indicating patency. IMPRESSION: 1. No acute infarct, hemorrhage, mass, or hydrocephalus. 2. Focus of FLAIR hyperintensity in the left pericallosal white matter is n onspecific but most often seen with chronic small vessel ischemic disease in this age group. Other considerations would include chronic migraines or demyelinating disease, in the appropriate clinical setting. CT arteriogram of the carotid arteries, CT arteriogram of the brain. HISTORY: Right arm numbness. CT arteriogram the carotid arteries was done using 75 mL Omnipaque 300 contrast. Lung apices are free of infiltrates. Origins the great vessels at the aortic arch are widely patent. There are normal vertebral arteries both of which supply flow to the basilar artery. There is mild plaque at the carotid bifurcation on each side without significant stenosis in the internal carotid arteries. Internal carotid arteries are tortuous. There is degenerative disc disease in the cervical spine. Three-dimensional images were reconstructed. Sinuses are clear. Thyroid is homogeneous. There is no adenopathy in the neck. IMPRESSION: 1. Mild plaque at the carotid bifurcations on each side without significant stenosis. 2. Normal bilateral vertebral arteries. End impression CT arteriogram of the brain CT arteriogram of the brain was done following CT arteriogram the carotid arteries. Three-dimensional images were reconstructed. There is no major vessel occlusion. There is no intracranial aneurysm. There is plaque at the carotid siphon without severe stenosis. There is no mass effect or shift of the midline. There is no pathologic enhancement. Intracranial veins are patent. IMPRESSION: 1. No major vessel occlusion noted. 2. No pathologic enhancement noted 3. No other acute finding. Justicifation of Admission Dx: Justifications for Admission: Justification of Admission Dx: N/A JENNY CORRIGAN MD Jul 31, 2021 10:50
[2021-07-31 11:00] VITALS: BP 114/62
[2021-07-31 15:00] VITALS: BP 111/60
[2021-07-31] MEDS ORDERED: LISI10TA16 PO (15:19)
--- NOTE | 2021-07-31 15:23 | PDOC3 ---
Discharge Summary Visit Information Date of Admission: Jul 30, 2021 Date of Discharge: Jul 31, 2021 Final Diagnosis Right-sided hemihypesthesia concerning for a left thalamic stroke. CT head was concerning, but CT angiogram and brain MRI are negative. Hypertension may have caused some mild encephalopathy, improfed, cont htn treatment Problems Medical Problems: (1) Dyspnea Status: Acute (2) Right arm numbness Status: Acute Brief Hospital Course Allergies Allergies Coded Allergies Type Severity Reaction Last Updated Verified codeine Allergy Severe hives 07/30/21 Yes Vital Signs Vital Signs Date Time Temp Pulse Resp B/P (MAP) Pulse Ox O2 Delivery O2 Flow Rate FiO2 07/31/21 11:00 96.7 65 18 114/62 (79) 98 Room Air 96.7 Lab Results Laboratory Tests Test 07/30/21 08:29 07/30/21 08:31 07/30/21 13:20 07/31/21 04:50 Glucose (Fingerstick) 112 mg/dL (70-99) White Blood Count 6.2 x10^3/uL (4.0-11.0) 8.0 x10^3/uL (4.0-11.0) Red Blood Count 5.01 x10^6/uL (4.30-5.70) 5.00 x10^6/uL (4.30-5.70) Hemoglobin 14.8 g/dL (13.0-17.5) 14.8 g/dL (13.0-17.5) Hematocrit 45.6 % (39.0-53.0) 46.0 % (39.0-53.0) Mean Corpuscular Volume 91 fL (79-100) 92 fL (79-100) Mean Corpuscular Hemoglobin 30 pg (25-35) 30 pg (25-35) Mean Corpuscular Hemoglobin Concent 33 g/dL (31-37) 32 g/dL (31-37) Red Cell Distribution Width 13.5 % (11.5-14.5) 13.5 % (11.5-14.5) Platelet Count 225 x10^3/uL (140-400) 217 x10^3/uL (140-400) Neutrophils (%) (Auto) 61 % (31-73) 59 % (31-73) Lymphocytes (%) (Auto) 24 % (24-48) 26 % (24-48) Monocytes (%) (Auto) 12 % (0-9) 11 % (0-9) Eosinophils (%) (Auto) 2 % (0-3) 3 % (0-3) Basophils (%) (Auto) 1 % (0-3) 1 % (0-3) Neutrophils # (Auto) 3.8 x10^3/uL (1.8-7.7) 4.7 x10^3/uL (1.8-7.7) Lymphocytes # (Auto) 1.4 x10^3/uL (1.0-4.8) 2.0 x10^3/uL (1.0-4.8) Monocytes # (Auto) 0.7 x10^3/uL (0.0-1.1) 0.9 x10^3/uL (0.0-1.1) Eosinophils # (Auto) 0.1 x10^3/uL (0.0-0.7) 0.2 x10^3/uL (0.0-0.7) Basophils # (Auto) 0.1 x10^3/uL (0.0-0.2) 0.1 x10^3/uL (0.0-0.2) Prothrombin Time 13.2 SEC (11.7-14.0) Prothromb Time International Ratio 1.0 (0.8-1.1) Activated Partial Thromboplast Time 32 SEC (24-38) Sodium Level 141 mmol/L (136-145) 141 mmol/L (136-145) Potassium Level 3.9 mmol/L (3.5-5.1) 4.0 mmol/L (3.5-5.1) Chloride Level 107 mmol/L (98-107) 106 mmol/L (98-107) Carbon Dioxide Level 26 mmol/L (21-32) 26 mmol/L (21-32) Anion Gap 8 (6-14) 9 (6-14) Blood Urea Nitrogen 15 mg/dL (8-26) 20 mg/dL (8-26) Creatinine 1.2 mg/dL (0.7-1.3) 1.2 mg/dL (0.7-1.3) Estimated GFR (Cockcroft-Gault) 61.6 61.6 BUN/Creatinine Ratio 13 (6-20) Glucose Level 110 mg/dL (70-99) 101 mg/dL (70-99) Hemoglobin A1c 5.7 % (4.8-5.6) Calcium Level 9.3 mg/dL (8.5-10.1) 8.7 mg/dL (8.5-10.1) Total Bilirubin 0.7 mg/dL (0.2-1.0) Aspartate Amino Transf (AST/SGOT) 21 U/L (15-37) Alanine Aminotransferase (ALT/SGPT) 38 U/L (16-63) Alkaline Phosphatase 143 U/L (46-116) Troponin I High Sensitivity 4 ng/L (4-75) 5 ng/L (4-75) BY-Lcd-U-Type Natriuretic Peptide 29 pg/mL (0-124) Total Protein 7.3 g/dL (6.4-8.2) Albumin 4.0 g/dL (3.4-5.0) Albumin/Globulin Ratio 1.2 (1.0-1.7) Triglycerides Level 48 mg/dL (0-150) Cholesterol Level 144 mg/dL (0-200) LDL Cholesterol, Calculated 68 mg/dL (0-100) VLDL Cholesterol, Calculated 10 mg/dL (0-40) Non-HDL Cholesterol Calculated 78 mg/dL (0-129) HDL Cholesterol 66 mg/dL (40-60) Cholesterol/HDL Ratio 2.2 Laboratory Tests Test 07/31/21 04:50 White Blood Count 8.0 x10^3/uL (4.0-11.0) Red Blood Count 5.00 x10^6/uL (4.30-5.70) Hemoglobin 14.8 g/dL (13.0-17.5) Hematocrit 46.0 % (39.0-53.0) Mean Corpuscular Volume 92 fL (79-100) Mean Corpuscular Hemoglobin 30 pg (25-35) Mean Corpuscular Hemoglobin Concent 32 g/dL (31-37) Red Cell Distribution Width 13.5 % (11.5-14.5) Platelet Count 217 x10^3/uL (140-400) Neutrophils (%) (Auto) 59 % (31-73) Lymphocytes (%) (Auto) 26 % (24-48) Monocytes (%) (Auto) 11 % (0-9) Eosinophils (%) (Auto) 3 % (0-3) Basophils (%) (Auto) 1 % (0-3) Neutrophils # (Auto) 4.7 x10^3/uL (1.8-7.7) Lymphocytes # (Auto) 2.0 x10^3/uL (1.0-4.8) Monocytes # (Auto) 0.9 x10^3/uL (0.0-1.1) Eosinophils # (Auto) 0.2 x10^3/uL (0.0-0.7) Basophils # (Auto) 0.1 x10^3/uL (0.0-0.2) Sodium Level 141 mmol/L (136-145) Potassium Level 4.0 mmol/L (3.5-5.1) Chloride Level 106 mmol/L (98-107) Carbon Dioxide Level 26 mmol/L (21-32) Anion Gap 9 (6-14) Blood Urea Nitrogen 20 mg/dL (8-26) Creatinine 1.2 mg/dL (0.7-1.3) Estimated GFR (Cockcroft-Gault) 61.6 Glucose Level 101 mg/dL (70-99) Calcium Level 8.7 mg/dL (8.5-10.1) Brief Hospital Course Mr. Hemphill is a 61 old male that had mild chest pain that resovled, CV cons ult, no CAD, a month ago and had a cardiac catheterization which was negative for coronary disease. then had sudden right arm numbness with htn, neuro change, MRI done, neuro workup, saw Dr. Singh, discharge diagnosis stolen from his notes. f/u primary care, take htn meds, needs f/u Assessment Assessment Aspirin Discontinue statin Follow-up with an visiting housekeeper and neurology as needed Discharge Information Condition at Discharge: Improved Follow Up: Weeks Disposition/Orders: D/C to Home Scheduled Aspirin (Aspirin) 81 Mg Tab.chew, 1 TAB PO DAILY for prophylaxis, #30 (Reported) Entered as Reported by: CHEMA LONG on 06/26/21 9097 Lisinopril (Lisinopril) 10 Mg Tablet, 1 TAB PO DAILY for htn, #30 Ref 1 Prescribed by: BETTE RANGEL on 07/31/21 1519 Patient Instructions Patient Instructions pt seen face to face 23 min total Justicifation of Admission Dx: Justifications for Admission: Justification of Admission Dx: N/A BETTE RANGEL MD Jul 31, 2021 15:23
--- NOTE | 2021-07-31 15:24 | NUR ---
SS following for discharge planning. SS reviewed pt chart and discussed with pt RN. Pt is from home with spouse and is currently on room air. Neurology and Cardiology following. PO diet. PT/OT following. Self pay. Med Assist following. Discharge order on the chart for home with self care.
--- NOTE | 2021-07-31 18:52 | NUR ---
Discharge Note: SAM WATTERS[facility] Discharge instructions and discharge home medications reviewed with Patient and a copy given. All questions have been answered and understanding verbalized. The following instructions and handouts were given: chest pain, HTN IV discontinued, no complications. Patient given resources on PCP's and outpatient rehab Script given to patient for output PT. see copy in paper chart Script given for lisinopril Patient discharged to home with self care. All belongings taken home with patient.
== END 2021-07-31 17:20 | disposition home or self-care (01) | DRG 92 ==
LOC: ER 08:02 → ED HOLD 09:14 → OBSVTOIN 09:50 → 6 SOUTH 10:44
PROVIDERS: ADMIT Internal Medicine; ATTEND Internal Medicine
DX: R20.1 Hypoesthesia of skin (principal); I67.4 Hypertensive encephalopathy; R07.9 Chest pain, unspecified; R06.02 Shortness of breath; R20.0 Anesthesia of skin; I10 Essential (primary) hypertension; I25.10 Atherosclerotic heart disease of native coronary artery without angina pectoris; Z82.49 Family history of ischemic heart disease and other diseases of the circulatory system; Z87.891 Personal history of nicotine dependence; Z95.5 Presence of coronary angioplasty implant and graft; K21.9 Gastro-esophageal reflux disease without esophagitis; Z89.022 Acquired absence of left finger(s); Z86.19 Personal history of other infectious and parasitic diseases; Z88.5 Allergy status to narcotic agent
CPT/HCPCS: 36415; 70450; 70496; 70498; 70551; 71045; 80048; 80053; 80061; 82962; 83036; 83880; 84484; 85025; 85610; 85730; 93005; G0379; Q9967; 92610-GN; 97116-GP; 97530-GO; 99285-25; G0378

== ENCOUNTER 2021-09-03 19:43 | Inpatient (IN) | payer SELFPAY ==
[~2021-09-03] VITALS: Ht 157.5 cm; Wt 83.0 kg
[2021-09-03] MEDS ORDERED: IV NORMAL SALINE 1000ML BAG 1,000 ML IV ONE ×2 (20:30→22:00)
[2021-09-03 21:17] LABS: BASO # 0.2 x10^3/uL (0.0-0.2); BASO % 1 % (0-3); EOS % 0 % (0-3); HEMATOCRIT 47.6 % (39.0-53.0); HEMOGLOBIN 16.1 g/dL (13.0-17.5); LYMPH # 1.1 x10^3/uL (1.0-4.8); LYMPH % 6 % (24-48); MEAN CORPUSCULAR HEMOGLOBIN 31 pg (25-35); MEAN CORPUSCULAR HGB CONC 34 g/dL (31-37); MEAN CORPUSCULAR VOLUME 91 fL (79-100); MONO # 1.1 x10^3/uL (0.0-1.1); MONO % 6 % (0-9); NEUT % 87 % (31-73); PLATELET COUNT 257 x10^3/uL (140-400); RED BLOOD COUNT 5.23 x10^6/uL (4.30-5.70); RED CELL DISTRIBUTION WIDTH 13.3 % (11.5-14.5); WHITE BLOOD COUNT 17.3 x10^3/uL (4.0-11.0)
[2021-09-03 21:39] LABS: CALCIUM 9.9 mg/dL (8.5-10.1); GFR 21.4; POTASSIUM 4.8 mmol/L (3.5-5.1)
[2021-09-03 21:44] LABS: ALBUMIN 4.5 g/dL (3.4-5.0); ALBUMIN/GLOBULIN RATIO 1.1 (1.0-1.7); TOTAL BILIRUBIN 0.9 mg/dL (0.2-1.0); TOTAL PROTEIN 8.5 g/dL (6.4-8.2)
[2021-09-03 22:17] LABS: % BANDS 8 % (0-9); % LYMPHS 4 % (24-48); % MONOS 4 % (0-10); % SEGS 84 % (35-66)
[2021-09-03 22:18] LABS: PLT ESTIMATE ADEQUATE (ADEQUATE)
[2021-09-03 23:32] LABS: AMPHETAMINE/METHAMPHETAMINE NEG (NEG); BARBITURATES NEG (NEG); BENZODIAZEPINES NEG (NEG); CANNABINOIDS NEG (NEG); COCAINE NEG (NEG); METHADONE NEG (NEG); OPIATES NEG (NEG); PHENCYCLIDINE NEG (NEG)
[2021-09-03 23:35] LABS: BACTERIA,URINE FEW /HPF (0-FEW)
[2021-09-03 23:36] LABS: GRANULAR CASTS,URINE OCCASIONAL /HPF; HYALINE CASTS, URINE MODERATE /HPF
--- NOTE | 2021-09-04 00:14 | PHYS DOC ---
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 Patient said he has been working outside all day, he states this evening he developed cramping to his muscles on the right side. Denies any nausea or vomiting. He states he knows he has not drank enough fluids Review of Systems: Review of Systems: Constitutional: Reports muscle cramping possible dehydration. Denies fever or chills. [] Eyes: Denies change in visual acuity. [] HENT: Denies nasal congestion or sore throat. [] Respiratory: Denies cough or shortness of breath. [] Cardiovascular: Denies chest pain or edema. [] GI: Denies abdominal pain, nausea, vomiting, bloody stools or diarrhea. [] : Denies dysuria. [] Musculoskeletal: Denies back pain or joint pain. [] Integument: Denies rash. [] Neurologic: Denies headache, focal weakness or sensory changes. [] Psychiatric: Denies depression or anxiety. [] Heart Score: C/O Chest Pain: N/A Risk Factors: Risk Factors: DM, Current or recent (<one month) smoker, HTN, HLP, family history of CAD, obesity. Risk Scores: Score 0 - 3: 2.5% MACE over next 6 weeks - Discharge Home Score 4 - 6: 20.3% MACE over next 6 weeks - Admit for Clinical Observation Score 7 - 10: 72.7% MACE over next 6 weeks - Early Invasive Strategies Current Medications: Current Medications Medications (Trade) Dose Ordered Sig/Kristy Start Time Stop Time Status Last Admin Dose Admin Sodium Chloride 1,000 ml @ 1,000 mls/hr 1X ONCE 09/03/21 20:30 09/03/21 21:29 DC 09/03/21 20:30 1,000 MLS/HR Allergies: Allergies: Allergies Coded Allergies Type Severity Reaction Last Updated Verified codeine Allergy Severe hives 07/30/21 Yes Physical Exam: PE: Constitutional: Well developed, well nourished, no acute distress, non-toxic appearance. [] HENT: Normocephalic, atraumatic, bilateral external ears normal, oropharynx dry, no oral exudates, nose normal. [] Eyes: PERRLA, EOMI, conjunctiva normal, no discharge. [] Neck: Normal range of motion, no tenderness, supple, no stridor. [] Cardiovascular:Heart rate regular rhythm, no murmur [] Lungs & Thorax: Bilateral breath sounds clear to auscultation [] Abdomen: Bowel sounds normal, soft, no tenderness, no masses, no pulsatile masses. [] Skin: Warm, dry, no erythema, no rash. [] Back: No tenderness, no CVA tenderness. [] Extremities: No tenderness, no cyanosis, no clubbing, ROM intact, no edema. [] Neurologic: Alert and oriented X 3, normal motor function, normal sensory function, no focal deficits noted. [] Psychologic: Affect normal, judgement normal, mood normal. [] Current Patient Data: Labs: Laboratory Tests Test 09/03/21 20:53 09/03/21 23:15 09/03/21 23:35 White Blood Count 17.3 x10^3/uL (4.0-11.0) H Red Blood Count 5.23 x10^6/uL (4.30-5.70) Hemoglobin 16.1 g/dL (13.0-17.5) Hematocrit 47.6 % (39.0-53.0) Mean Corpuscular Volume 91 fL (79-100) Mean Corpuscular Hemoglobin 31 pg (25-35) Mean Corpuscular Hemoglobin Concent 34 g/dL (31-37) Red Cell Distribution Width 13.3 % (11.5-14.5) Platelet Count 257 x10^3/uL (140-400) Neutrophils (%) (Auto) 87 % (31-73) H Lymphocytes (%) (Auto) 6 % (24-48) L Monocytes (%) (Auto) 6 % (0-9) Eosinophils (%) (Auto) 0 % (0-3) Basophils (%) (Auto) 1 % (0-3) Neutrophils # (Auto) 15.0 x10^3/uL (1.8-7.7) H Lymphocytes # (Auto) 1.1 x10^3/uL (1.0-4.8) Monocytes # (Auto) 1.1 x10^3/uL (0.0-1.1) Eosinophils # (Auto) 0.0 x10^3/uL (0.0-0.7) Basophils # (Auto) 0.2 x10^3/uL (0.0-0.2) Segmented Neutrophils % 84 % (35-66) H Band Neutrophils % 8 % (0-9) Lymphocytes % 4 % (24-48) L Monocytes % 4 % (0-10) Platelet Estimate Adequate (ADEQUATE) Sodium Level 144 mmol/L (136-145) Potassium Level 4.8 mmol/L (3.5-5.1) Chloride Level 103 mmol/L (98-107) Carbon Dioxide Level 25 mmol/L (21-32) Anion Gap 16 (6-14) H Blood Urea Nitrogen 31 mg/dL (8-26) H Creatinine 3.0 mg/dL (0.7-1.3) H Estimated GFR (Cockcroft-Gault) 21.4 BUN/Creatinine Ratio 10 (6-20) Glucose Level 129 mg/dL (70-99) H Calcium Level 9.9 mg/dL (8.5-10.1) Magnesium Level 2.0 mg/dL (1.8-2.4) Total Bilirubin 0.9 mg/dL (0.2-1.0) Aspartate Amino Transferase (AST) 39 U/L (15-37) H Alanine Aminotransferase (ALT) 54 U/L (16-63) Alkaline Phosphatase 158 U/L (46-116) H Creatine Kinase 379 U/L (39-308) H Creatine Kinase MB (Mass) 2.6 ng/mL (0.0-3.6) Creatine Kinase MB Relative Index 0.7 % (0-4) Troponin I High Sensitivity 10 ng/L (4-75) 9 ng/L (4-75) XP-Ypa-C-Type Natriuretic Peptide 76 pg/mL (0-124) Total Protein 8.5 g/dL (6.4-8.2) H Albumin 4.5 g/dL (3.4-5.0) Albumin/Globulin Ratio 1.1 (1.0-1.7) Urine Collection Type Unknown Urine Color (Auto) Yellow Urine Turbidity Hazy Urine pH (Auto) 5.0 (<5.0-8.0) Urine Specific [place] 1.021 (1.000-1.030) Urine Protein (Auto) 50 mg/dL (Negative) Urine Glucose (Auto)(UA) Negative mg/dL (Negative) Urine Ketones (Auto) Negative mg/dL (Negative) Urine Blood (Auto) Negative (Negative) Urine Nitrite Negative (Negative) Urine Bilirubin (Auto) Small (Negative) Urine Urobilinogen (Auto) Normal mg/dL (Normal) Urine Leukocyte Esterase (Auto) Negative (Negative) Urine RBC 1-2 /HPF (0-2) Urine WBC 1-4 /HPF (0-4) Urine Squamous Epithelial Cells Mod /LPF Urine Bacteria Few /HPF (0-FEW) Urine Cellular Casts Mod /HPF Urine Hyaline Casts Moderate /HPF Urine Granular Casts Occasional /HPF Urine Mucus Marked /LPF Urine Opiates Screen Neg (NEG) Urine Methadone Screen Neg (NEG) Urine Barbiturates Neg (NEG) Urine Phencyclidine Screen Neg (NEG) Urine Amphetamine/Methamphetamine Neg (NEG) Urine Benzodiazepines Screen Neg (NEG) Urine Cocaine Screen Neg (NEG) Urine Cannabinoids Screen Neg (NEG) Urine Ethyl Alcohol Neg (NEG) Laboratory Tests 09/03/21 20:53 Laboratory Tests 09/03/21 20:53 Vital Signs: Vital Signs Date Time Temp Pulse Resp B/P (MAP) Pulse Ox O2 Delivery O2 Flow Rate FiO2 09/03/21 22:15 70 18 125/67 (86) 96 Room Air 09/03/21 20:10 98.1 98.1 EKG: EKG: [] Radiology/Procedures: Radiology/Procedures: [] Course & Med Decision Making: Course & Med Decision Making Pertinent Labs and Imaging studies reviewed. (See chart for details) This a 61-year-old male patient presenting to the ED today to be evaluated for dehydration. Patient has been working outside and reports not drinking enough fluids. Vitals on arrival to the ED temperature 98.1, heart rate 99, respiration 18, O2 sats 94% on room air, blood pressure 107/64. CBC with a WBC of 17.3, normal hemoglobin and hematocrit. CMP with creatinine of 3.0, BUN of 31. Patient has no previous history of renal failure. [id number] Patient was started on IV fluids, 2 L given with in the ED and more fluids on admission Spoke with Dr. Santana who accepted patient for admission, routine consult placed for nephrology Dione Disclaimer: Dione Disclaimer: This electronic medical record was generated, in whole or in part, using a voice recognition dictation system. Departure Departure Impression: Primary Impression: Dehydration Additional Impression: Acute renal failure Qualified Codes: N17.9 - Acute kidney failure, unspecified Disposition: ADMITTED INPATIENT Condition: STABLE Referrals: NO PCP (PCP) JOEY MANCUSO COIL BINDER September 04, 2021 00:14
[2021-09-04] MEDS ORDERED: MORPHINE SULFATE 4 MG/ML INJ. IVP PRN (00:15)
[2021-09-04] MEDS ORDERED: ACETAMINOPHEN 325 MG TABLET. PO PRN ×2 (00:15→07:15)
[2021-09-04] MEDS ORDERED: ONDANSETRON PF 4 MG/2 ML VIAL. IVP PRN ×2 (00:15→07:15)
[2021-09-04] MEDS ORDERED: IV NORMAL SALINE 1000ML BAG 1,000 ML IV ONE ×2 (00:30→11:15)
--- NOTE | 2021-09-04 02:18 | EKG ---
[facility] [address] [place] [address] Test Date: 2021-09-03 Test Time: 21:25:53 Pat Name: SAM WATTERS Department: Room: [facility] Gender: M [employer]: [id number] : 1960 Requested By: JOEY MANCUSO Order Number: [id number] Reading MD: Ford Srivastava Measurements Intervals [place] Rate: 80 P: 25 SD: 160 QRS: 3 QRSD: 84 T: -9 QT: 376 QTc: 437 Interpretive Statements SINUS RHYTHM Electronically Signed On 09-04-2021 17:07:52 CDT by Ford Srivastava
[2021-09-04 02:23] VITALS: BP 135/69
[2021-09-04 07:00] VITALS: BP 131/74
--- NOTE | 2021-09-04 07:07 | PDOC1 ---
History and Physical Date of Admission Date of Admission DATE: 09/04/21 TIME: 07:04 Identification/Chief Complaint Chief Complaint Weakness Source Source: Patient History of Present Illness History of Present Illness Mr Patterson is a 61 yo M w/ PMHx ex-smoker, DM2, hep C in SVR who presents to ED c/o muscle cramping, weakness and dehydration. Noted to ED that he had been working outside all day and had not taken any fluids. Previously noted with difficulty focusing at this. He has not been taking any NSAIDs or [id number] supplements. No nausea or vomiting or diarrhea. He was too weak to stand. Labs notable for WBC 17.3, Hb 16.1, platelets 257, NA 144, K4.8, BUN 31, CR 3, glucose 129, calcium 9.9, mag 2, bilirubin 0.9, AST 39, ALT 54, alkaline phosphatase 158, CK was 379 albumin 4.5 urinalysis bland, urine drug screen negative EKG appears sinus rhythm rate of 80 bpm normal axis and intervals no ST segment elevations or depressions no T WI, QTC 437 Admitted for further care. Past Medical History Cardiovascular: HTN Pulmonary: No pertinent hx GI: GERD Hepatobiliary: Other Infectious disease: Other Endocrine: Other Past Surgical History Past Surgical History: No pertinent history Family History Family History: Coronary Artery Disease Social History Smoke: Quit ALCOHOL: none Drugs: None Current Problem List Problem List Problems Medical Problems: (1) Acute renal failure Status: Acute (2) Dehydration Status: Acute Current Medications Current Medications Current Medications Sodium Chloride 1,000 ml @ 1,000 mls/hr 1X ONCE IV Last administered on 09/03/21at 20:30; Start 09/03/21 at 20:30; Stop 09/03/21 at 21:29; Status DC Sodium Chloride 1,000 ml @ 1,000 mls/hr 1X ONCE IV Last administered on 09/03/21at 23:30; Start 09/03/21 at 22:00; Stop 09/03/21 at 22:59; Status DC Ondansetron HCl (Zofran) 4 mg PRN Q8HRS PRN IVP NAUSEA/VOMITING 1ST CHOICE; Start 09/04/21 at 00:15; Stop 09/05/21 at 00:14 Morphine Sulfate (Morphine Sulfate) 4 mg PRN Q2HR PRN IVP SEVERE PAIN 7-10; Start 09/04/21 at 00:15; Stop 09/05/21 at 00:14 Acetaminophen (Tylenol) 650 mg PRN Q4HRS PRN PO FEVER > 100.3'F; Start 09/04/21 at 00:15; Stop 09/05/21 at 00:14 Sodium Chloride 1,000 ml @ 150 mls/hr 1X ONCE IV Last administered on 09/04/21at 00:30; Start 09/04/21 at 00:30; Stop 09/04/21 at 07:09 Active Scripts Active Lisinopril 10 Mg Tablet 1 Tab PO DAILY Reported Aspirin 81 Mg Tab.chew 1 Tab PO DAILY Allergies Allergies: Coded Allergies: codeine (Verified Allergy, Severe, hives, 07/30/21) ROS General: YES: Fatigue, Malaise; No: Chills, Night Sweats, Appetite, Other PSYCHOLOGICAL ROS: No: Anxiety, Behavioral Disorder, Concentration difficultie, Decreased libido, Depression, Disorientation, Hallucinations, Hostility, Irritablity, Memory difficulties, Mood Swings, Obsessive thoughts, Physical abuse, Sexual abuse, Sleep disturbances, Suicidal ideation, Other Eyes: No Blurry vision, No Decreased vision, No Double vision, No Dry eyes, No Excessive tearing, No Eye Pain, No Itchy Eyes, No Loss of vision, No Photophobia, No Scotomata, No Uses contacts, No Uses glasses, No Other HEENT: No: Heacaches, Visual Changes, Hearing change, Nasal congestion, Nasal discharge, Oral lesions, Sinus pain, Sore Throat, Epistaxis, Sneezing, Snoring, Tinnitus, Vertigo, Vocal changes, Other ALLERGY AND IMMUNOLOGY: No: Hives, Insect Bite Sensitivity, Itchy/Watery Eyes, Nasal Congestion, Post Nasal Drip, Seasonal Allergies, Other Hematological and Lymphatic: No: Bleeding Problems, Blood Clots, Blood Transfusions, Brusing, Night Sweats, Pallor, Swollen Lymph Nodes, Other ENDOCRINE: No: Breast Changes, Galactorrhea, Hair Pattern Changes, Hot Flashes, Malaise/lethargy, Mood Swings, Palpitations, Polydipsia/polyuria, Skin Changes, Temperature Intolerance, Unexpected Weight Changes, Other Breast: No New/Changing Breast Lumps, No Nipple changes, No Nipple discharge, No Other Respiratory: No: Cough, Hemoptysis, Orthopnea, Pleuritic Pain, Shortness of breath, SOB with excertion, Sputum Changes, Stridor, Tachypnea, Wheezing, Other Cardiovascular: No Chest Pain, No Palpitations, No Orthopnea, No Paroxysmal Noc. Dyspnea, No Edema, No Lt Headedness, No Other Gastrointestinal: No Nausea, No Vomiting, No Abdominal Pain, No Diarrhea, No Constipation, No Melena, No Hematochezia, No Other Genitourinary: No Dysuria, No Frequency, No Incontinence, No Hematuria, No Retention, No Discharge, No Urgency, No Pain, No Flank Pain, No Other, No , No , No , No , No , No , No Musculoskeletal: No Gait Disturbance, No Joint Pain, No Joint Stiffness, No Joint Swelling, No Muscle Pain, No Muscular Weakness, No Pain In:, No Swelling In:, No Other Neurological: No Behavorial Changes, No Bowel/Bladder ControlChng, No Confusion, No Dizziness, No Gait Disturbance, No Headaches, No Impaired Coord/ balance, No Memory Loss, No Numbness/Tingling, No Seizures, No Speech Problems, No Tremors, No Visual Changes, No Weakness, No Other Skin: No Dry Skin, No Eczema, No Hair Changes, No Lumps, No Mole Changes, No Mottling, No Nail Changes, No Pruritus, No Rash, No Skin Lesion Changes, No Other, No Acne Physical Exam General: Alert, Oriented X3, Cooperative, No acute distress HEENT: Atraumatic, PERRLA, EOMI Lungs: Clear to auscultation, Normal air movement Heart: S1S2, RRR, no thrills, no rubs, no gallops, no murmurs Abdomen: Normal bowel sounds, Soft, No tenderness, No hepatosplenomegaly, No masses Rectal Exam: not examined Extremities: No clubbing, No cyanosis, No edema, Normal pulses, No tenderness/s welling Skin: No rashes, No breakdown, No significant lesion Neuro: Normal gait, Normal speech, Strength at 5/5 X4 ext, Normal tone, Sensation intact, Cranial nerves 3-12 NL, Reflexes 2+ Psych/Mental Status: Mental status NL, Mood NL Vitals Vitals Vital Signs Date Time Temp Pulse Resp B/P (MAP) Pulse Ox O2 Delivery O2 Flow Rate FiO2 09/04/21 02:23 97.8 75 19 135/69 (91) 98 Room Air 97.8 Labs Labs Laboratory Tests Test 09/03/21 20:53 09/03/21 23:15 09/03/21 23:35 09/04/21 03:10 White Blood Count 17.3 x10^3/uL (4.0-11.0) Red Blood Count 5.23 x10^6/uL (4.30-5.70) Hemoglobin 16.1 g/dL (13.0-17.5) Hematocrit 47.6 % (39.0-53.0) Mean Corpuscular Volume 91 fL (79-100) Mean Corpuscular Hemoglobin 31 pg (25-35) Mean Corpuscular Hemoglobin Concent 34 g/dL (31-37) Red Cell Distribution Width 13.3 % (11.5-14.5) Platelet Count 257 x10^3/uL (140-400) Neutrophils (%) (Auto) 87 % (31-73) Lymphocytes (%) (Auto) 6 % (24-48) Monocytes (%) (Auto) 6 % (0-9) Eosinophils (%) (Auto) 0 % (0-3) Basophils (%) (Auto) 1 % (0-3) Neutrophils # (Auto) 15.0 x10^3/uL (1.8-7.7) Lymphocytes # (Auto) 1.1 x10^3/uL (1.0-4.8) Monocytes # (Auto) 1.1 x10^3/uL (0.0-1.1) Eosinophils # (Auto) 0.0 x10^3/uL (0.0-0.7) Basophils # (Auto) 0.2 x10^3/uL (0.0-0.2) Segmented Neutrophils % 84 % (35-66) Band Neutrophils % 8 % (0-9) Lymphocytes % 4 % (24-48) Monocytes % 4 % (0-10) Platelet Estimate Adequate (ADEQUATE) Sodium Level 144 mmol/L (136-145) Potassium Level 4.8 mmol/L (3.5-5.1) Chloride Level 103 mmol/L (98-107) Carbon Dioxide Level 25 mmol/L (21-32) Anion Gap 16 (6-14) Blood Urea Nitrogen 31 mg/dL (8-26) Creatinine 3.0 mg/dL (0.7-1.3) Estimated GFR (Cockcroft-Gault) 21.4 BUN/Creatinine Ratio 10 (6-20) Glucose Level 129 mg/dL (70-99) Calcium Level 9.9 mg/dL (8.5-10.1) Magnesium Level 2.0 mg/dL (1.8-2.4) Total Bilirubin 0.9 mg/dL (0.2-1.0) Aspartate Amino Transf (AST/SGOT) 39 U/L (15-37) Alanine Aminotransferase (ALT/SGPT) 54 U/L (16-63) Alkaline Phosphatase 158 U/L (46-116) Creatine Kinase 379 U/L (39-308) Creatine Kinase MB (Mass) 2.6 ng/mL (0.0-3.6) Creatine Kinase MB Relative Index 0.7 % (0-4) Troponin I High Sensitivity 10 ng/L (4-75) 9 ng/L (4-75) 9 ng/L (4-75) GP-Iih-U-Type Natriuretic Peptide 76 pg/mL (0-124) Total Protein 8.5 g/dL (6.4-8.2) Albumin 4.5 g/dL (3.4-5.0) Albumin/Globulin Ratio 1.1 (1.0-1.7) Urine Collection Type Unknown Urine Color (Auto) Yellow Urine Turbidity Hazy Urine pH (Auto) 5.0 (<5.0-8.0) Urine Specific [place] 1.021 (1.000-1.030) Urine Protein (Auto) 50 mg/dL (Negative) Urine Glucose (Auto)(UA) Negative mg/dL (Negative) Urine Ketones (Auto) Negative mg/dL (Negative) Urine Blood (Auto) Negative (Negative) Urine Nitrite Negative (Negative) Urine Bilirubin (Auto) Small (Negative) Urine Urobilinogen (Auto) Normal mg/dL (Normal) Urine Leukocyte Esterase (Auto) Negative (Negative) Urine RBC 1-2 /HPF (0-2) Urine WBC 1-4 /HPF (0-4) Urine Squamous Epithelial Cells Mod /LPF Urine Bacteria Few /HPF (0-FEW) Urine Cellular Casts Mod /HPF Urine Hyaline Casts Moderate /HPF Urine Granular Casts Occasional /HPF Urine Mucus Marked /LPF Urine Opiates Screen Neg (NEG) Urine Methadone Screen Neg (NEG) Urine Barbiturates Neg (NEG) Urine Phencyclidine Screen Neg (NEG) Urine Amphetamine/Methamphetamine Neg (NEG) Urine Benzodiazepines Screen Neg (NEG) Urine Cocaine Screen Neg (NEG) Urine Cannabinoids Screen Neg (NEG) Urine Ethyl Alcohol Neg (NEG) Laboratory Tests Test 09/03/21 20:53 09/03/21 23:15 09/03/21 23:35 09/04/21 03:10 White Blood Count 17.3 x10^3/uL (4.0-11.0) Red Blood Count 5.23 x10^6/uL (4.30-5.70) Hemoglobin 16.1 g/dL (13.0-17.5) Hematocrit 47.6 % (39.0-53.0) Mean Corpuscular Volume 91 fL (79-100) Mean Corpuscular Hemoglobin 31 pg (25-35) Mean Corpuscular Hemoglobin Concent 34 g/dL (31-37) Red Cell Distribution Width 13.3 % (11.5-14.5) Platelet Count 257 x10^3/uL (140-400) Neutrophils (%) (Auto) 87 % (31-73) Lymphocytes (%) (Auto) 6 % (24-48) Monocytes (%) (Auto) 6 % (0-9) Eosinophils (%) (Auto) 0 % (0-3) Basophils (%) (Auto) 1 % (0-3) Neutrophils # (Auto) 15.0 x10^3/uL (1.8-7.7) Lymphocytes # (Auto) 1.1 x10^3/uL (1.0-4.8) Monocytes # (Auto) 1.1 x10^3/uL (0.0-1.1) Eosinophils # (Auto) 0.0 x10^3/uL (0.0-0.7) Basophils # (Auto) 0.2 x10^3/uL (0.0-0.2) Segmented Neutrophils % 84 % (35-66) Band Neutrophils % 8 % (0-9) Lymphocytes % 4 % (24-48) Monocytes % 4 % (0-10) Platelet Estimate Adequate (ADEQUATE) Sodium Level 144 mmol/L (136-145) Potassium Level 4.8 mmol/L (3.5-5.1) Chloride Level 103 mmol/L (98-107) Carbon Dioxide Level 25 mmol/L (21-32) Anion Gap 16 (6-14) Blood Urea Nitrogen 31 mg/dL (8-26) Creatinine 3.0 mg/dL (0.7-1.3) Estimated GFR (Cockcroft-Gault) 21.4 BUN/Creatinine Ratio 10 (6-20) Glucose Level 129 mg/dL (70-99) Calcium Level 9.9 mg/dL (8.5-10.1) Magnesium Level 2.0 mg/dL (1.8-2.4) Total Bilirubin 0.9 mg/dL (0.2-1.0) Aspartate Amino Transf (AST/SGOT) 39 U/L (15-37) Alanine Aminotransferase (ALT/SGPT) 54 U/L (16-63) Alkaline Phosphatase 158 U/L (46-116) Creatine Kinase 379 U/L (39-308) Creatine Kinase MB (Mass) 2.6 ng/mL (0.0-3.6) Creatine Kinase MB Relative Index 0.7 % (0-4) Troponin I High Sensitivity 10 ng/L (4-75) 9 ng/L (4-75) 9 ng/L (4-75) UL-Fsl-W-Type Natriuretic Peptide 76 pg/mL (0-124) Total Protein 8.5 g/dL (6.4-8.2) Albumin 4.5 g/dL (3.4-5.0) Albumin/Globulin Ratio 1.1 (1.0-1.7) Urine Collection Type Unknown Urine Color (Auto) Yellow Urine Turbidity Hazy Urine pH (Auto) 5.0 (<5.0-8.0) Urine Specific [place] 1.021 (1.000-1.030) Urine Protein (Auto) 50 mg/dL (Negative) Urine Glucose (Auto)(UA) Negative mg/dL (Negative) Urine Ketones (Auto) Negative mg/dL (Negative) Urine Blood (Auto) Negative (Negative) Urine Nitrite Negative (Negative) Urine Bilirubin (Auto) Small (Negative) Urine Urobilinogen (Auto) Normal mg/dL (Normal) Urine Leukocyte Esterase (Auto) Negative (Negative) Urine RBC 1-2 /HPF (0-2) Urine WBC 1-4 /HPF (0-4) Urine Squamous Epithelial Cells Mod /LPF Urine Bacteria Few /HPF (0-FEW) Urine Cellular Casts Mod /HPF Urine Hyaline Casts Moderate /HPF Urine Granular Casts Occasional /HPF Urine Mucus Marked /LPF Urine Opiates Screen Neg (NEG) Urine Methadone Screen Neg (NEG) Urine Barbiturates Neg (NEG) Urine Phencyclidine Screen Neg (NEG) Urine Amphetamine/Methamphetamine Neg (NEG) Urine Benzodiazepines Screen Neg (NEG) Urine Cocaine Screen Neg (NEG) Urine Cannabinoids Screen Neg (NEG) Urine Ethyl Alcohol Neg (NEG) VTE Prophylaxis Ordered VTE Prophylaxis Devices: Yes VTE Pharmacological Prophylaxi: Yes Assessment/Plan Assessment/Plan Weakness -mild rhabdomyolysis renal failure we will hydrate. JUSTIN -likely vasomotor nephropathy. Nephrology consulted. IV fluid resuscitation Leukocytosis -likely hemoconcentrated will monitor. Ex-smoker DM2 - sliding scale insulin hep C in SVR FEN - ADA diet PPX - heparin FULL CODE Dispo - inpatient Justifications for Admission Other Justification HORTENSIA ANGELES MD September 04, 2021 07:07
[2021-09-04] MEDS ORDERED: hydrALAZINE 20 MG/ML VIAL. IVP PRN (07:15)
[2021-09-04] MEDS ORDERED: NICOTINE 21MG PATCH. TD PRN (07:15)
[2021-09-04] MEDS: ASPIRIN CHEWABLE 81 MG TABLET. PO SCH (09:06)
[2021-09-04] MEDS: HEPARIN for SUB-Q USE 5,000 UNIT/ML VIAL. SQ SCH ×3 (09:09→23:24)
--- NOTE | 2021-09-04 10:22 | PDOC2 ---
CONSULT Date of Consult Date of Consult DATE: 09/04/21 TIME: 10:20 Reason for Consult Reason for Consult: JUSTIN Identification/Chief Complaint Chief Complaint Currently No complaints, states feeling better Source Source: Chart review, Patient History of Present Illness Reason for Visit: Patient is a 61 year old CM with history of hypertension presenting to the ED to be evaluated for possible dehydration. Patient said he has been working outside all day, and later the same evening he developed cramping to his muscles on the right side. Denies any nausea or vomiting. He states he knows he has not drank enough fluids. He denies any N/V/D. No abdominal pain. Denies F/C. No CP or SOB. Denies use of NSAID's or any OTC supplements. States takes prescription meds for HTN, No new , recent med changes. Denies any urinary complaints- Dysuria or hematuria, he states he may have notoced some decrease in UOP .Denies Hx of Kidney stones Denies LE edema, Wt stable. No FHx of CKD or ESRD . Past Medical History Cardiovascular: HTN Pulmonary: No pertinent hx GI: GERD Hepatobiliary: Other Infectious disease: Other Endocrine: Other Past Surgical History Past Surgical History: No pertinent history Family History Family History: Coronary Artery Disease Social History ALCOHOL: none Drugs: None Lives: with Family Domestic Violence: Neg Current Problem List Problem List Problems Medical Problems: (1) Acute renal failure Status: Acute (2) Dehydration Status: Acute Current Medications Current Medications Current Medications Sodium Chloride 1,000 ml @ 1,000 mls/hr 1X ONCE IV Last administered on at 20:30; Start 09/03/21 at 20:30; Stop 09/03/21 at 21:29; Status DC Sodium Chloride 1,000 ml @ 1,000 mls/hr 1X ONCE IV Last administered on 09/03/21at 23:30; Start 09/03/21 at 22:00; Stop 09/03/21 at 22:59; Status DC Ondansetron HCl (Zofran) 4 mg PRN Q8HRS PRN IVP NAUSEA/VOMITING 1ST CHOICE; Start 09/04/21 at 00:15; Stop 09/04/21 at 07:03; Status DC Morphine Sulfate (Morphine Sulfate) 4 mg PRN Q2HR PRN IVP SEVERE PAIN 7-10; Start 09/04/21 at 00:15; Stop 09/05/21 at 00:14 Acetaminophen (Tylenol) 650 mg PRN Q4HRS PRN PO FEVER > 100.3'F; Start 09/04/21 at 00:15; Stop 09/04/21 at 07:03; Status DC Sodium Chloride 1,000 ml @ 150 mls/hr 1X ONCE IV Last administered on 09/04/21at 00:30; Start 09/04/21 at 00:30; Stop 09/04/21 at 07:09; Status DC Ondansetron HCl (Zofran) 4 mg PRN Q4HRS PRN IVP NAUSEA/VOMITING 1ST CHOICE; Start 09/04/21 at 07:15 Acetaminophen (Tylenol) 650 mg PRN Q6HRS PRN PO FEVER > 100.3'F; Start 09/04/21 at 07:15 Aspirin (Aspirin Chewable) 81 mg DAILY PO Last administered on 09/04/21at 09:06; Start 09/04/21 at 09:00 Hydralazine HCl (Apresoline Inj) 10 mg PRN Q4HRS PRN IVP ELEVATED BP, SEE COMMENTS; Start 09/04/21 at 07:15 Heparin Sodium (Porcine) (Heparin Sodium) 5,000 unit Q8HRS SQ Last administered on 09/04/21at 09:09; Start 09/04/21 at 08:00 Nicotine (Nicoderm Cq 21mg) 1 patch PRN DAILY PRN TD SMOKING CESSATION; Start 09/04/21 at 07:15 Active Scripts Active Lisinopril 10 Mg Tablet 1 Tab PO DAILY Reported Aspirin 81 Mg Tab.chew 1 Tab PO DAILY Allergies Allergies: Coded Allergies: codeine (Verified Allergy, Severe, hives, 07/30/21) ROS Review of System As per HPI, rest of the ROS is negative Physical Exam Physical Exam General NAD HEEN OM mildly dry, anicterus Neck Supple, Lungs CTA, Non labored CV RRR, S1S2 Abd Soft, NT, BS + Ext No LE edema No garcia, No CVA or SP tenderness Derm No rash Neuro Grossly normal, moving all extrem Psych- Mood stable, Cooperative Vital Signs Vital Signs Date Time Temp Pulse Resp B/P (MAP) Pulse Ox O2 Delivery O2 Flow Rate FiO2 09/04/21 07:00 97.6 63 18 131/74 (93) 95 Room Air 97.6 Assessment & Plan JUSTIN - vasomotor / Dehydration . Minimally elevated CPK . UOP not recorded Supportive care, Maintain Hydration. Ordered labs this morning , UA unremarkable . Avoid Nephrotoxins Discussed with Dr Lo CKD stage 2- baseline Creat normal per [facility] records with eGFR cw stage 2 HTN- Per home med list (as reconciled in chart)- only on low dose Lisinopril Renal Calculus- Reported on CT - 4.4 mm calculus at the left pelviureteric junction. Without definite hydronephrosis. Also 2 to 3 mm nonobstructing calculus in the left inferior renal pole. Patient denies any knowledge of having Kidney stones Recent Hospitalization @ [facility]- Right-sided hemihypesthesia concerning for a left thalamic stroke. CT head shows possible changes in the middle cerebral artery distribution. However, CT angiogram and brain MRI negative. Patient denies Dx of DM Labs Labs Laboratory Tests Test 09/03/21 20:53 09/03/21 23:15 09/03/21 23:35 09/04/21 03:10 White Blood Count 17.3 x10^3/uL (4.0-11.0) Red Blood Count 5.23 x10^6/uL (4.30-5.70) Hemoglobin 16.1 g/dL (13.0-17.5) Hematocrit 47.6 % (39.0-53.0) Mean Corpuscular Volume 91 fL (79-100) Mean Corpuscular Hemoglobin 31 pg (25-35) Mean Corpuscular Hemoglobin Concent 34 g/dL (31-37) Red Cell Distribution Width 13.3 % (11.5-14.5) Platelet Count 257 x10^3/uL (140-400) Neutrophils (%) (Auto) 87 % (31-73) Lymphocytes (%) (Auto) 6 % (24-48) Monocytes (%) (Auto) 6 % (0-9) Eosinophils (%) (Auto) 0 % (0-3) Basophils (%) (Auto) 1 % (0-3) Neutrophils # (Auto) 15.0 x10^3/uL (1.8-7.7) Lymphocytes # (Auto) 1.1 x10^3/uL (1.0-4.8) Monocytes # (Auto) 1.1 x10^3/uL (0.0-1.1) Eosinophils # (Auto) 0.0 x10^3/uL (0.0-0.7) Basophils # (Auto) 0.2 x10^3/uL (0.0-0.2) Segmented Neutrophils % 84 % (35-66) Band Neutrophils % 8 % (0-9) Lymphocytes % 4 % (24-48) Monocytes % 4 % (0-10) Platelet Estimate Adequate (ADEQUATE) Sodium Level 144 mmol/L (136-145) Potassium Level 4.8 mmol/L (3.5-5.1) Chloride Level 103 mmol/L (98-107) Carbon Dioxide Level 25 mmol/L (21-32) Anion Gap 16 (6-14) Blood Urea Nitrogen 31 mg/dL (8-26) Creatinine 3.0 mg/dL (0.7-1.3) Estimated GFR (Cockcroft-Gault) 21.4 BUN/Creatinine Ratio 10 (6-20) Glucose Level 129 mg/dL (70-99) Calcium Level 9.9 mg/dL (8.5-10.1) Magnesium Level 2.0 mg/dL (1.8-2.4) Total Bilirubin 0.9 mg/dL (0.2-1.0) Aspartate Amino Transf (AST/SGOT) 39 U/L (15-37) Alanine Aminotransferase (ALT/SGPT) 54 U/L (16-63) Alkaline Phosphatase 158 U/L (46-116) Creatine Kinase 379 U/L (39-308) Creatine Kinase MB (Mass) 2.6 ng/mL (0.0-3.6) Creatine Kinase MB Relative Index 0.7 % (0-4) Troponin I High Sensitivity 10 ng/L (4-75) 9 ng/L (4-75) 9 ng/L (4-75) [id number]-Type Natriuretic Peptide 76 pg/mL (0-124) Total Protein 8.5 g/dL (6.4-8.2) Albumin 4.5 g/dL (3.4-5.0) Albumin/Globulin Ratio 1.1 (1.0-1.7) Urine Collection Type Unknown Urine Color (Auto) Yellow Urine Turbidity Hazy Urine pH (Auto) 5.0 (<5.0-8.0) Urine Specific Weir 1.021 (1.000-1.030) Urine Protein (Auto) 50 mg/dL (Negative) Urine Glucose (Auto)(UA) Negative mg/dL (Negative) Urine Ketones (Auto) Negative mg/dL (Negative) Urine Blood (Auto) Negative (Negative) Urine Nitrite Negative (Negative) Urine Bilirubin (Auto) Small (Negative) Urine Urobilinogen (Auto) Normal mg/dL (Normal) Urine Leukocyte Esterase (Auto) Negative (Negative) Urine RBC 1-2 /HPF (0-2) Urine WBC 1-4 /HPF (0-4) Urine Squamous Epithelial Cells Mod /LPF Urine Bacteria Few /HPF (0-FEW) Urine Cellular Casts Mod /HPF Urine Hyaline Casts Moderate /HPF Urine Granular Casts Occasional /HPF Urine Mucus Marked /LPF Urine Opiates Screen Neg (NEG) Urine Methadone Screen Neg (NEG) Urine Barbiturates Neg (NEG) Urine Phencyclidine Screen Neg (NEG) Urine Amphetamine/Methamphetamine Neg (NEG) Urine Benzodiazepines Screen Neg (NEG) Urine Cocaine Screen Neg (NEG) Urine Cannabinoids Screen Neg (NEG) Urine Ethyl Alcohol Neg (NEG) Laboratory Tests Test 09/03/21 20:53 09/03/21 23:15 09/03/21 23:35 09/04/21 03:10 White Blood Count 17.3 x10^3/uL (4.0-11.0) Red Blood Count 5.23 x10^6/uL (4.30-5.70) Hemoglobin 16.1 g/dL (13.0-17.5) Hematocrit 47.6 % (39.0-53.0) Mean Corpuscular Volume 91 fL (79-100) Mean Corpuscular Hemoglobin 31 pg (25-35) Mean Corpuscular Hemoglobin Concent 34 g/dL (31-37) Red Cell Distribution Width 13.3 % (11.5-14.5) Platelet Count 257 x10^3/uL (140-400) Neutrophils (%) (Auto) 87 % (31-73) Lymphocytes (%) (Auto) 6 % (24-48) Monocytes (%) (Auto) 6 % (0-9) Eosinophils (%) (Auto) 0 % (0-3) Basophils (%) (Auto) 1 % (0-3) Neutrophils # (Auto) 15.0 x10^3/uL (1.8-7.7) Lymphocytes # (Auto) 1.1 x10^3/uL (1.0-4.8) Monocytes # (Auto) 1.1 x10^3/uL (0.0-1.1) Eosinophils # (Auto) 0.0 x10^3/uL (0.0-0.7) Basophils # (Auto) 0.2 x10^3/uL (0.0-0.2) Segmented Neutrophils % 84 % (35-66) Band Neutrophils % 8 % (0-9) Lymphocytes % 4 % (24-48) Monocytes % 4 % (0-10) Platelet Estimate Adequate (ADEQUATE) Sodium Level 144 mmol/L (136-145) Potassium Level 4.8 mmol/L (3.5-5.1) Chloride Level 103 mmol/L (98-107) Carbon Dioxide Level 25 mmol/L (21-32) Anion Gap 16 (6-14) Blood Urea Nitrogen 31 mg/dL (8-26) Creatinine 3.0 mg/dL (0.7-1.3) Estimated GFR (Cockcroft-Gault) 21.4 BUN/Creatinine Ratio 10 (6-20) Glucose Level 129 mg/dL (70-99) Calcium Level 9.9 mg/dL (8.5-10.1) Magnesium Level 2.0 mg/dL (1.8-2.4) Total Bilirubin 0.9 mg/dL (0.2-1.0) Aspartate Amino Transf (AST/SGOT) 39 U/L (15-37) Alanine Aminotransferase (ALT/SGPT) 54 U/L (16-63) Alkaline Phosphatase 158 U/L (46-116) Creatine Kinase 379 U/L (39-308) Creatine Kinase MB (Mass) 2.6 ng/mL (0.0-3.6) Creatine Kinase MB Relative Index 0.7 % (0-4) Troponin I High Sensitivity 10 ng/L (4-75) 9 ng/L (4-75) 9 ng/L (4-75) PL-[id number]-Type Natriuretic Peptide 76 pg/mL (0-124) Total Protein 8.5 g/dL (6.4-8.2) Albumin 4.5 g/dL (3.4-5.0) Albumin/Globulin Ratio 1.1 (1.0-1.7) Urine Collection Type Unknown Urine Color (Auto) Yellow Urine Turbidity Hazy Urine pH (Auto) 5.0 (<5.0-8.0) Urine Specific Weir 1.021 (1.000-1.030) Urine Protein (Auto) 50 mg/dL (Negative) Urine Glucose (Auto)(UA) Negative mg/dL (Negative) Urine Ketones (Auto) Negative mg/dL (Negative) Urine Blood (Auto) Negative (Negative) Urine Nitrite Negative (Negative) Urine Bilirubin (Auto) Small (Negative) Urine Urobilinogen (Auto) Normal mg/dL (Normal) Urine Leukocyte Esterase (Auto) Negative (Negative) Urine RBC 1-2 /HPF (0-2) Urine WBC 1-4 /HPF (0-4) Urine Squamous Epithelial Cells Mod /LPF Urine Bacteria Few /HPF (0-FEW) Urine Cellular Casts Mod /HPF Urine Hyaline Casts Moderate /HPF Urine Granular Casts Occasional /HPF Urine Mucus Marked /LPF Urine Opiates Screen Neg (NEG) Urine Methadone Screen Neg (NEG) Urine Barbiturates Neg (NEG) Urine Phencyclidine Screen Neg (NEG) Urine Amphetamine/Methamphetamine Neg (NEG) Urine Benzodiazepines Screen Neg (NEG) Urine Cocaine Screen Neg (NEG) Urine Cannabinoids Screen Neg (NEG) Urine Ethyl Alcohol Neg (NEG) Review All relevant outside records, renal labs, imaging studies, telemetry/EKG's were reviewed. Images Images CT ABD PELV W/ IV CONTRST ONLY PQRS Compliance Statement: One or more of the following individualized dose reduction techniques were utilized for this examination: 1. Automated exposure control 2. Adjustment of the mA and/or kV according to patient size 3. Use of iterative reconstruction technique Exam performed: CT abdomen and pelvis with contrast HISTORY: Abdominal pain, nausea and vomiting, Covid 19 infection. DATE OF SERVICE: 12/13/2020. COMPARISON: None available TECHNIQUE: Contiguous helical acquisitions are obtained through the abdomen and pelvis during intravenous administration of contrast. Sagittal and coronal reformatted images are obtained and reviewed. FINDINGS: Lung bases are clear. Visualized heart is normal. The liver, spleen, pancreas and gallbladder appear normal. Both adrenal glands and bilateral kidneys are normal in size with symmetric excretion of contrast via both kidneys. There is a 4.4 mm calculus at the left pelviureteric junction. Without definite hydronephrosis. There is also a 2 to 3 mm nonobstructing calculus in the left inferior renal pole. The right kidney is normal. There is no perinephric stranding. Aorta is normal in caliber without aneurysm. Mild atheromatous calcification of the aorta is seen. The small and large bowel loops are nondilated and unremarkable. Appendix is not clearly seen. No inflammatory changes are seen in the right lower quadrant. There is scattered stool in the colon. The urinary bladder is partially decompressed. Prostatomegaly. Seminal vesicles and rectum appear normal. IMPRESSION: No acute intra-abdominal or pelvic process seen. Left renal calculi. Electronically signed by: Felicia Butt MD (12/12/2020 9:29 AM) [id number] FRED CORNEJO MD September 04, 2021 10:22
[2021-09-04 10:38] LABS: CALCIUM 8.1 mg/dL (8.5-10.1); CREATININE 1.9 mg/dL (0.7-1.3); GFR 36.2; POTASSIUM 4.3 mmol/L (3.5-5.1)
[2021-09-04 10:41] LABS: ALBUMIN 3.3 g/dL (3.4-5.0); PHOSPHORUS 3.9 mg/dL (2.6-4.7)
[2021-09-04 11:00] VITALS: BP 132/72
[2021-09-04 15:00] VITALS: BP 104/55
--- NOTE | 2021-09-04 15:33 | NUR ---
SS following for discharge planning. SS reviewed pt chart and discussed with pt RN. Pt is from home with spouse and is currently on room air. Nephrology following. Self pay. Med assist following. SS will continue to follow for discharge planning.
[2021-09-04 19:00] VITALS: BP 154/80
[2021-09-04 22:54] VITALS: BP 134/74
[2021-09-05 02:44] VITALS: BP 125/68
[2021-09-05] MEDS: HEPARIN for SUB-Q USE 5,000 UNIT/ML VIAL. SQ SCH (05:28)
[2021-09-05 06:41] LABS: CALCIUM 8.2 mg/dL (8.5-10.1); CREATININE 1.1 mg/dL (0.7-1.3); GFR 68.1; POTASSIUM 4.5 mmol/L (3.5-5.1)
[2021-09-05 07:00] VITALS: BP 133/79
[2021-09-05 07:25] LABS: HEMATOCRIT 39.1 % (39.0-53.0); HEMOGLOBIN 12.8 g/dL (13.0-17.5); RED BLOOD COUNT 4.26 x10^6/uL (4.30-5.70); RED CELL DISTRIBUTION WIDTH 13.3 % (11.5-14.5); WHITE BLOOD COUNT 7.1 x10^3/uL (4.0-11.0)
--- NOTE | 2021-09-05 08:50 | PDOC ---
[employer] PROGRESS NOTE Date of Service DOS: DATE: 09/05/21 TIME: 08:49 Chief Complaint Chief Complaint Weakness -mild rhabdomyolysis renal failure we will hydrate. JUSTIN -likely vasomotor nephropathy. Nephrology consulted. IV fluid resuscitation Leukocytosis -likely hemoconcentrated will monitor. Ex-smoker DM2 - sliding scale insulin hep C in SVR Low back pain -likely musculoskeletal from overuse due to ongoing. FEN - ADA diet PPX - heparin FULL CODE Dispo - inpatient History of Present Illness History of Present Illness Mr Patterson is a 61 yo M w/ PMHx ex-smoker, DM2, hep C in SVR who presents to ED c/o muscle cramping, weakness and dehydration. Noted to ED that he had been working outside all day and had not taken any fluids. Previously noted with difficulty focusing at this. He has not been taking any NSAIDs or [id number] supplements. No nausea or vomiting or diarrhea. He was too weak to stand. Labs notable for WBC 17.3, Hb 16.1, platelets 257, NA 144, K4.8, BUN 31, CR 3, glucose 129, calcium 9.9, mag 2, bilirubin 0.9, AST 39, ALT 54, alkaline phosphatase 158, CK was 379 albumin 4.5 urinalysis bland, urine drug screen negative EKG appears sinus rhythm rate of 80 bpm normal axis and intervals no ST segment elevations or depressions no T WI, QTC 437 Admitted for further care. 09/05: He is feeling stronger though he complains of bilateral lower back pain and left greater than right and some spasming. WBC improved to 7.1 creatinine improved to 1.1. Discussed the importance of avoiding ibuprofen and Aleve staying hydrated. He is asking for some for his lower back pain offered muscle relaxant tramadol temporarily. Vitals/I&O Vitals/I&O: Vital Signs Date Time Temp Pulse Resp B/P (MAP) Pulse Ox O2 Delivery O2 Flow Rate FiO2 09/05/21 02:44 98.8 64 17 125/68 (87) 95 Room Air 98.8 I & O 09/04/21 09/04/21 09/05/21 15:00 23:00 07:00 Intake Total 150 ml 200 ml Output Total 300 ml 550 ml Balance -300 ml 150 ml -350 ml Physical Exam General: Alert, Oriented X3, Cooperative, No acute distress Lungs: Clear, Other Abdomen: Normal bowel sounds, Soft, No tenderness, No hepatosplenomegaly, No masses Extremities: No clubbing, No cyanosis, No edema, Normal pulses, No tenderness/swelling Skin: No rashes, No breakdown, No significant lesion Labs Labs: Laboratory Tests Test 09/05/21 04:40 White Blood Count 7.1 x10^3/uL (4.0-11.0) Red Blood Count 4.26 x10^6/uL (4.30-5.70) Hemoglobin 12.8 g/dL (13.0-17.5) Hematocrit 39.1 % (39.0-53.0) Mean Corpuscular Volume 92 fL (79-100) Mean Corpuscular Hemoglobin 30 pg (25-35) Mean Corpuscular Hemoglobin Concent 33 g/dL (31-37) Red Cell Distribution Width 13.3 % (11.5-14.5) Platelet Count 203 x10^3/uL (140-400) Sodium Level 142 mmol/L (136-145) Potassium Level 4.5 mmol/L (3.5-5.1) Chloride Level 111 mmol/L (98-107) Carbon Dioxide Level 24 mmol/L (21-32) Anion Gap 7 (6-14) Blood Urea Nitrogen 23 mg/dL (8-26) Creatinine 1.1 mg/dL (0.7-1.3) Estimated GFR (Cockcroft-Gault) 68.1 Glucose Level 86 mg/dL (70-99) Calcium Level 8.2 mg/dL (8.5-10.1) Creatine Kinase 150 U/L (39-308) Assessment and Plan Assessmemt and Plan Problems Medical Problems: (1) Acute renal failure Status: Acute (2) Dehydration Status: Acute Comment Review of Relevant I have reviewed the following items chase (where applicable) has been applied. Medications: Current Medications Medications (Trade) Dose Ordered Sig/Kristy Route PRN Reason Start Time Stop Time Status Last Admin Dose Admin Aspirin (Aspirin Chewable) 81 mg DAILY PO 09/04/21 09:00 09/04/21 09:06 Sodium Chloride 1,000 ml @ 100 mls/hr 1X ONCE IV 09/04/21 11:15 09/04/21 21:14 DC 09/04/21 11:26 Justifications for Admission Other Justification HORTENSIA ANGELES MD September 05, 2021 08:50
[2021-09-05] MEDS ORDERED: TRAM50TA PO (08:53)
[2021-09-05] MEDS ORDERED: AMLO-186 PO (08:53)
[2021-09-05] MEDS ORDERED: CYCL10TA19 PO (08:53)
--- NOTE | 2021-09-05 08:58 | PDOC3 ---
Discharge Summary Visit Information Date of Admission: September 03, 2021 Date of Discharge: September 05, 2021 Admitting Diagnosis: Acute renal failure Final Diagnosis Problems Medical Problems: (1) Acute renal failure Status: Acute (2) Dehydration Status: Acute Brief Hospital Course Allergies Allergies Coded Allergies Type Severity Reaction Last Updated Verified codeine Allergy Severe hives 07/30/21 Yes Vital Signs Vital Signs Date Time Temp Pulse Resp B/P (MAP) Pulse Ox O2 Delivery O2 Flow Rate FiO2 09/05/21 02:44 98.8 64 17 125/68 (87) 95 Room Air 98.8 Lab Results Laboratory Tests Test 09/03/21 20:53 09/03/21 23:15 09/03/21 23:35 09/04/21 03:10 White Blood Count 17.3 x10^3/uL (4.0-11.0) Red Blood Count 5.23 x10^6/uL (4.30-5.70) Hemoglobin 16.1 g/dL (13.0-17.5) Hematocrit 47.6 % (39.0-53.0) Mean Corpuscular Volume 91 fL (79-100) Mean Corpuscular Hemoglobin 31 pg (25-35) Mean Corpuscular Hemoglobin Concent 34 g/dL (31-37) Red Cell Distribution Width 13.3 % (11.5-14.5) Platelet Count 257 x10^3/uL (140-400) Neutrophils (%) (Auto) 87 % (31-73) Lymphocytes (%) (Auto) 6 % (24-48) Monocytes (%) (Auto) 6 % (0-9) Eosinophils (%) (Auto) 0 % (0-3) Basophils (%) (Auto) 1 % (0-3) Neutrophils # (Auto) 15.0 x10^3/uL (1.8-7.7) Lymphocytes # (Auto) 1.1 x10^3/uL (1.0-4.8) Monocytes # (Auto) 1.1 x10^3/uL (0.0-1.1) Eosinophils # (Auto) 0.0 x10^3/uL (0.0-0.7) Basophils # (Auto) 0.2 x10^3/uL (0.0-0.2) Segmented Neutrophils % 84 % (35-66) Band Neutrophils % 8 % (0-9) Lymphocytes % 4 % (24-48) Monocytes % 4 % (0-10) Platelet Estimate Adequate (ADEQUATE) Sodium Level 144 mmol/L (136-145) 145 mmol/L (136-145) Potassium Level 4.8 mmol/L (3.5-5.1) 4.3 mmol/L (3.5-5.1) Chloride Level 103 mmol/L (98-107) 110 mmol/L (98-107) Carbon Dioxide Level 25 mmol/L (21-32) 23 mmol/L (21-32) Anion Gap 16 (6-14) 12 (6-14) Blood Urea Nitrogen 31 mg/dL (8-26) 31 mg/dL (8-26) Creatinine 3.0 mg/dL (0.7-1.3) 1.9 mg/dL (0.7-1.3) Estimated GFR (Cockcroft-Gault) 21.4 36.2 BUN/Creatinine Ratio 10 (6-20) Glucose Level 129 mg/dL (70-99) 112 mg/dL (70-99) Calcium Level 9.9 mg/dL (8.5-10.1) 8.1 mg/dL (8.5-10.1) Magnesium Level 2.0 mg/dL (1.8-2.4) Total Bilirubin 0.9 mg/dL (0.2-1.0) Aspartate Amino Transf (AST/SGOT) 39 U/L (15-37) Alanine Aminotransferase (ALT/SGPT) 54 U/L (16-63) Alkaline Phosphatase 158 U/L (46-116) Creatine Kinase 379 U/L (39-308) Creatine Kinase MB (Mass) 2.6 ng/mL (0.0-3.6) Creatine Kinase MB Relative Index 0.7 % (0-4) Troponin I High Sensitivity 10 ng/L (4-75) 9 ng/L (4-75) 9 ng/L (4-75) CQ-Sez-M-Type Natriuretic Peptide 76 pg/mL (0-124) Total Protein 8.5 g/dL (6.4-8.2) Albumin 4.5 g/dL (3.4-5.0) 3.3 g/dL (3.4-5.0) Albumin/Globulin Ratio 1.1 (1.0-1.7) Urine Collection Type Unknown Urine Color (Auto) Yellow Urine Turbidity Hazy Urine pH (Auto) 5.0 (<5.0-8.0) Urine Specific [place] 1.021 (1.000-1.030) Urine Protein (Auto) 50 mg/dL (Negative) Urine Glucose (Auto)(UA) Negative mg/dL (Negative) Urine Ketones (Auto) Negative mg/dL (Negative) Urine Blood (Auto) Negative (Negative) Urine Nitrite Negative (Negative) Urine Bilirubin (Auto) Small (Negative) Urine Urobilinogen (Auto) Normal mg/dL (Normal) Urine Leukocyte Esterase (Auto) Negative (Negative) Urine RBC 1-2 /HPF (0-2) Urine WBC 1-4 /HPF (0-4) Urine Squamous Epithelial Cells Mod /LPF Urine Bacteria Few /HPF (0-FEW) Urine Cellular Casts Mod /HPF Urine Hyaline Casts Moderate /HPF Urine Granular Casts Occasional /HPF Urine Mucus Marked /LPF Urine Opiates Screen Neg (NEG) Urine Methadone Screen Neg (NEG) Urine Barbiturates Neg (NEG) Urine Phencyclidine Screen Neg (NEG) Urine Amphetamine/Methamphetamine Neg (NEG) Urine Benzodiazepines Screen Neg (NEG) Urine Cocaine Screen Neg (NEG) Urine Cannabinoids Screen Neg (NEG) Urine Ethyl Alcohol Neg (NEG) Phosphorus Level 3.9 mg/dL (2.6-4.7) Test 09/05/21 04:40 White Blood Count 7.1 x10^3/uL (4.0-11.0) Red Blood Count 4.26 x10^6/uL (4.30-5.70) Hemoglobin 12.8 g/dL (13.0-17.5) Hematocrit 39.1 % (39.0-53.0) Mean Corpuscular Volume 92 fL (79-100) Mean Corpuscular Hemoglobin 30 pg (25-35) Mean Corpuscular Hemoglobin Concent 33 g/dL (31-37) Red Cell Distribution Width 13.3 % (11.5-14.5) Platelet Count 203 x10^3/uL (140-400) Sodium Level 142 mmol/L (136-145) Potassium Level 4.5 mmol/L (3.5-5.1) Chloride Level 111 mmol/L (98-107) Carbon Dioxide Level 24 mmol/L (21-32) Anion Gap 7 (6-14) Blood Urea Nitrogen 23 mg/dL (8-26) Creatinine 1.1 mg/dL (0.7-1.3) Estimated GFR (Cockcroft-Gault) 68.1 Glucose Level 86 mg/dL (70-99) Calcium Level 8.2 mg/dL (8.5-10.1) Creatine Kinase 150 U/L (39-308) Laboratory Tests Test 09/05/21 04:40 White Blood Count 7.1 x10^3/uL (4.0-11.0) Red Blood Count 4.26 x10^6/uL (4.30-5.70) Hemoglobin 12.8 g/dL (13.0-17.5) Hematocrit 39.1 % (39.0-53.0) Mean Corpuscular Volume 92 fL (79-100) Mean Corpuscular Hemoglobin 30 pg (25-35) Mean Corpuscular Hemoglobin Concent 33 g/dL (31-37) Red Cell Distribution Width 13.3 % (11.5-14.5) Platelet Count 203 x10^3/uL (140-400) Sodium Level 142 mmol/L (136-145) Potassium Level 4.5 mmol/L (3.5-5.1) Chloride Level 111 mmol/L (98-107) Carbon Dioxide Level 24 mmol/L (21-32) Anion Gap 7 (6-14) Blood Urea Nitrogen 23 mg/dL (8-26) Creatinine 1.1 mg/dL (0.7-1.3) Estimated GFR (Cockcroft-Gault) 68.1 Glucose Level 86 mg/dL (70-99) Calcium Level 8.2 mg/dL (8.5-10.1) Creatine Kinase 150 U/L (39-308) Brief Hospital Course Mr Patterson is a 61 yo M w/ PMHx ex-smoker, DM2, hep C in SVR who presents to ED c/o muscle cramping, weakness and dehydration. Noted to ED that he had been working outside all day and had not taken any fluids. Previously noted with difficulty focusing at this. He has not been taking any NSAIDs or ripm-jlv-[id number] supplements. No nausea or vomiting or diarrhea. He was too weak to stand. Labs notable for WBC 17.3, Hb 16.1, platelets 257, NA 144, K4.8, BUN 31, CR 3, glucose 129, calcium 9.9, mag 2, bilirubin 0.9, AST 39, ALT 54, alkaline phosphatase 158, CK was 379 albumin 4.5 urinalysis bland, urine drug screen negative EKG appears sinus rhythm rate of 80 bpm normal axis and intervals no ST segment elevations or depressions no T WI, QTC 437 Admitted for further care. 09/05: He is feeling stronger though he complains of bilateral lower back pain and left greater than right and some spasming. WBC improved to 7.1 creatinine improved to 1.1. Discussed the importance of avoiding ibuprofen and Aleve staying hydrated. He is asking for some for his lower back pain offered muscle relaxant tramadol temporarily. Consults; Nephrology Problem list: Weakness -mild rhabdomyolysis renal failure we will hydrate. JUSTIN -likely vasomotor nephropathy. Nephrology consulted. IV fluid resuscitation improved Leukocytosis -likely hemoconcentrated given resolution Ex-smoker DM2 - sliding scale insulin HTN -change from lisinopril to amlodipine hep C in SVR Low back pain -likely musculoskeletal from overuse due to ongoing. Greater than 30 minutes spent on d/c home with self care Discharge Information Condition at Discharge: Improved Follow Up: Weeks Disposition/Orders: D/C to Home Scheduled Amlodipine Besylate (Amlodipine Besylate) 5 Mg Tablet, 5 MG PO DAILY for HTN for 30 Days, #30 Ref 5 Prescribed by: HORTENSIA ANGELES MD on 09/05/21 0853 Aspirin (Aspirin) 81 Mg Tab.chew, 1 TAB PO DAILY for prophylaxis, #30 (Reported) Entered as Reported by: CHEMA LONG on 06/26/211736 Last Action: Continued on 09/04/21 0704 by HORTENSIA ANGELES MD Scheduled PRN Cyclobenzaprine Hcl (Cyclobenzaprine Hcl) 10 Mg Tablet, 10 MG PO PRN BID PRN for MUSCLE SPASMS for 6 Days, #12 Prescribed by: HORTENSIA ANGELES MD on 09/05/21 0853 Tramadol Hcl (Tramadol Hcl) 50 Mg Tablet, 50 MG PO PRN BID PRN for PAIN for 6 Days, #12 Prescribed by: HORTENSIA ANGELES MD on 09/05/21 0855 Discontinued Medications Lisinopril (Lisinopril) 10 Mg Tablet, 1 TAB PO DAILY for htn, #30 Ref 1 Prescribed by: BETTE RANGEL on 07/31/21 1519 Last Action: HELD on 09/04/21703 by HORTENSIA ANGELES MD Justicifation of Admission Dx: Justifications for Admission: Justification of Admission Dx: N/A HORTENSIA ANGELES MD September 05, 2021 08:58
[2021-09-05] MEDS ORDERED: CYCLOBENZAPRINE 10 MG TABLET. PO PRN (09:00)
[2021-09-05] MEDS ORDERED: traMADol 50 MG TABLET PO PRN (09:00)
[2021-09-05] MEDS: ASPIRIN CHEWABLE 81 MG TABLET. PO SCH (09:12)
--- NOTE | 2021-09-05 09:58 | PDOC ---
DATE OF SERVICE DATE: 09/05/21 TIME: 09:57 SUBJECTIVE ROS No complaints. States ready to go home OBJECTIVE Vital Signs Vital Signs Date Time Temp Pulse Resp B/P (MAP) Pulse Ox O2 Delivery O2 Flow Rate FiO2 09/05/21 08:00 Room Air 09/05/21 07:00 98.0 61 18 133/79 (97) 94 98.0 I & 0 Intake and Output 09/05/21 07:00 Intake Total 350 ml Output Total 850 ml Balance -500 ml Intake Oral 350 ml Output Urine Total 850 ml PHYSICAL EXAM Physical Exam General NAD HEEN OM mildly dry, anicterus Neck Supple, Lungs CTA, Non labored CV RRR, S1S2 Abd Soft, NT, BS + Ext No LE edema No garcia, No CVA or SP tenderness Derm No rash Neuro Grossly normal, moving all extrem Psych- Mood stable, Cooperative Vital Signs Vital Signs Date Time Temp Pulse Resp B/P (MAP) Pulse Ox O2 Delivery O2 Flow Rate FiO2 09/04/21 07:00 97.6 63 18 131/74 (93) 95 Room Air 97.6 DIAGNOSIS/ASSESSMENT Assessment & Plan JUSTIN - vasomotor / Dehydration . Minimally elevated CPK . UOP not recorded UA unremarkable . JUSTIN resolved Avoid Nephrotoxins , stay hydrated. Dw Patient CKD stage 2- baseline Creat normal per [facility] records with eGFR cw stage 2 HTN- Per home med list (as reconciled in chart)- only on low dose Lisinopril Renal Calculus- Reported on CT - 4.4 mm calculus at the left pelviureteric junction. Without definite hydronephrosis. Also 2 to 3 mm nonobstructing calculus in the left inferior renal pole. Patient denies any knowledge of having Kidney stones Recent Hospitalization @ [facility]- Right-sided hemihypesthesia concerning for a left thalamic stroke. CT head shows possible changes in the middle cerebral artery distribution. However, CT angiogram and brain MRI negative. Patient denies Dx of DM COMMENT/RELEVANT DATA Meds Current Medications Medications (Trade) Dose Ordered Sig/Kristy Start Time Stop Time Status Last Admin Dose Admin Acetaminophen (Tylenol) 650 mg PRN Q6HRS PRN 09/04/21 07:15 Aspirin (Aspirin Chewable) 81 mg DAILY 09/04/21 09:00 09/05/21 09:12 81 MG Cyclobenzaprine HCl (Flexeril) 10 mg PRN Q6HRS PRN 09/05/21 09:00 Heparin Sodium (Porcine) (Heparin Sodium) 5,000 unit Q8HRS 09/04/21 08:00 09/05/21 05:28 5,000 UNIT Hydralazine HCl (Apresoline Inj) 10 mg PRN Q4HRS PRN 09/04/21 07:15 Morphine Sulfate (Morphine Sulfate) 4 mg PRN Q2HR PRN 09/04/21 00:15 09/05/21 00:14 DC Nicotine (Nicoderm Cq 21mg) 1 patch PRN DAILY PRN 09/04/21 07:15 Ondansetron HCl (Zofran) 4 mg PRN Q4HRS PRN 09/04/21 07:15 Sodium Chloride 1,000 ml @ 100 mls/hr 1X ONCE 09/04/21 11:15 09/04/21 21:14 DC 09/04/21 11:26 100 MLS/HR Tramadol HCl (Ultram) 50 mg PRN Q6HRS PRN 09/05/21 09:00 Lab Laboratory Tests Test 09/05/21 04:40 White Blood Count 7.1 x10^3/uL (4.0-11.0) Red Blood Count 4.26 x10^6/uL (4.30-5.70) Hemoglobin 12.8 g/dL (13.0-17.5) Hematocrit 39.1 % (39.0-53.0) Mean Corpuscular Volume 92 fL (79-100) Mean Corpuscular Hemoglobin 30 pg (25-35) Mean Corpuscular Hemoglobin Concent 33 g/dL (31-37) Red Cell Distribution Width 13.3 % (11.5-14.5) Platelet Count 203 x10^3/uL (140-400) Sodium Level 142 mmol/L (136-145) Potassium Level 4.5 mmol/L (3.5-5.1) Chloride Level 111 mmol/L (98-107) Carbon Dioxide Level 24 mmol/L (21-32) Anion Gap 7 (6-14) Blood Urea Nitrogen 23 mg/dL (8-26) Creatinine 1.1 mg/dL (0.7-1.3) Estimated GFR (Cockcroft-Gault) 68.1 Glucose Level 86 mg/dL (70-99) Calcium Level 8.2 mg/dL (8.5-10.1) Creatine Kinase 150 U/L (39-308) Results All relevant outside records, renal labs, imaging studies, telemetry/EKG's were reviewed. Justicifation of Admission Dx: Justifications for Admission: Justification of Admission Dx: N/A FRED CORNEJO MD September 05, 2021 09:58
--- NOTE | 2021-09-05 10:49 | NUR ---
pt is discharged home with self care via ambulation via this RN at 1039. pt has all belongings with him. pt is in stable condition. pt received discharge instructions and was informed his prescriptions were sent to his pharmacy and he stated he had no further questions for me.
== END 2021-09-05 10:39 | disposition home or self-care (01) | DRG 683 ==
LOC: ER 19:43 → 6 SOUTH 21:35
PROVIDERS: ADMIT Internal Medicine; ATTEND Internal Medicine
DX: N17.0 Acute kidney failure with tubular necrosis (principal); M62.82 Rhabdomyolysis; B19.20 Unspecified viral hepatitis C without hepatic coma; D72.829 Elevated white blood cell count, unspecified; E86.0 Dehydration; N20.0 Calculus of kidney; Z82.49 Family history of ischemic heart disease and other diseases of the circulatory system; Z87.891 Personal history of nicotine dependence; K21.9 Gastro-esophageal reflux disease without esophagitis; I12.9 Hypertensive chronic kidney disease with stage 1 through stage 4 chronic kidney disease, or unspecified chronic kidney disease; E11.22 Type 2 diabetes mellitus with diabetic chronic kidney disease; N18.2 Chronic kidney disease, stage 2 (mild); Z88.8 Allergy status to other drugs, medicaments and biological substances
CPT/HCPCS: 36415; 80048; 80053; 80069; 80307; 81001; 82550; 82553; 83735; 83880; 84484; 85007; 85025; 85027; 93005; 96360; J1644; J7030; 99285-25; G0378

== ENCOUNTER 2021-09-15 13:12 | Inpatient (IN) | payer SELFPAY ==
[~2021-09-15] VITALS: Ht 170.2 cm; Wt 82.4 kg
[~2021-09-15 13:12] MED LIST changes: +AMLO-186 PO; +TRAM50TA PO
[2021-09-15] MEDS ORDERED: IV RINGERS,LACTATED 1000ML 1,000 ML IV SCH (13:45)
--- NOTE | 2021-09-15 13:47 | PHYS DOC ---
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 Patient states that prior to discharge his blood pressure medications was changed to amlodipine. He states since that time he has had a dry mouth as well as dizziness with standing. He states the dizziness resolves shortly thereafter. He denies any associated chest pain or shortness of breath. He denies any nausea, vomiting or diarrhea. He states he has had a mild headache that is intermittent. He states that he has been urinating okay. He denies any abdominal pain. Review of Systems: Review of Systems: Constitutional: Denies fever or chills. [] Eyes: Denies change in visual acuity. [] HENT: Denies nasal congestion or sore throat. [] Respiratory: Denies cough or shortness of breath. [] Cardiovascular: Denies chest pain or edema. [] GI: Denies abdominal pain, nausea, vomiting, bloody stools or diarrhea. [] : Denies dysuria. [] Musculoskeletal: Denies back pain or joint pain. [] Integument: Denies rash. [] Neurologic: Denies headache, focal weakness or sensory changes. [] Endocrine: Denies polyuria or polydipsia. [] Lymphatic: Denies swollen glands. [] Psychiatric: Denies depression or anxiety. [] Heart Score: C/O Chest Pain: No Current Medications: Current Medications Medications (Trade) Dose Ordered Sig/Kristy Start Time Stop Time Status Last Admin Dose Admin Ringer's Solution 1,000 ml @ 1,000 mls/hr Q1H 09/15/21 13:45 09/15/21 14:44 Allergies: Allergies: Allergies Coded Allergies Type Severity Reaction Last Updated Verified codeine Allergy Severe hives 07/30/21 Yes Physical Exam: PE: Constitutional: Well developed, well nourished, no acute distress, non-toxic appearance. [] HENT: Normocephalic, atraumatic, bilateral external ears normal, oropharynx moist, no oral exudates, nose normal. [] Eyes: PERRLA, EOMI, conjunctiva normal, no discharge. [] Neck: Normal range of motion, no tenderness, supple, no stridor. [] Cardiovascular:Heart rate regular rhythm, no murmur [] Lungs & Thorax: Bilateral breath sounds clear to auscultation [] Abdomen: Bowel sounds normal, soft, no tenderness, no masses, no pulsatile masses. [] Skin: Warm, dry, no erythema, no rash. [] Back: No tenderness, no CVA tenderness. [] Extremities: No tenderness, no cyanosis, no clubbing, ROM intact, no edema. [] Neurologic: Alert and oriented X 3, normal motor function, normal sensory function, no focal deficits noted. No ataxia noted. No dysdiadochokinesia. Psychologic: Affect normal, judgement normal, mood normal. [] EKG: EKG: [] Radiology/Procedures: Radiology/Procedures: [] Course & Med Decision Making: Course & Med Decision Making Pertinent Labs and Imaging studies reviewed. (See chart for details) [] Dragon Disclaimer: Dragon Disclaimer: This electronic medical record was generated, in whole or in part, using a voice recognition dictation system. Departure Departure Referrals: NO PCP (PCP) MARTHA RICH MD September 15, 2021 13:47
[2021-09-15 14:05] LABS: BASO # 0.1 x10^3/uL (0.0-0.2); BASO % 1 % (0-3); EOS # 0.1 x10^3/uL (0.0-0.7); EOS % 2 % (0-3); HEMATOCRIT 40.9 % (39.0-53.0); HEMOGLOBIN 13.8 g/dL (13.0-17.5); LYMPH % 26 % (24-48); MEAN CORPUSCULAR HEMOGLOBIN 31 pg (25-35); MEAN CORPUSCULAR HGB CONC 34 g/dL (31-37); MEAN CORPUSCULAR VOLUME 92 fL (79-100); MONO % 13 % (0-9); NEUT # 4.6 x10^3/uL (1.8-7.7); NEUT % 58 % (31-73); PLATELET COUNT 229 x10^3/uL (140-400); RED BLOOD COUNT 4.46 x10^6/uL (4.30-5.70); WHITE BLOOD COUNT 7.9 x10^3/uL (4.0-11.0)
[2021-09-15 14:16] LABS: CALCIUM 8.9 mg/dL (8.5-10.1); POTASSIUM 4.1 mmol/L (3.5-5.1)
[2021-09-15 14:20] LABS: RBC,URINE OCC /HPF (0-2)
[2021-09-15 14:21] LABS: BACTERIA,URINE 0 /HPF (0-FEW); WBC,URINE OCC /HPF (0-4)
[2021-09-15] MEDS ORDERED: IV NORMAL SALINE 1000ML BAG 1,000 ML IV ONE ×2 (14:45→16:15)
[2021-09-15] MEDS ORDERED: MECLIZINE HCL 12.5 MG TABLET. PO ONE (16:15)
--- NOTE | 2021-09-15 18:26 | RAD ---
Exam Date: 09/15/2021 5:[address] HEAD/BRAIN WO Indication: Reason: dizziness / Spl. Instructions: / History: . TECHNIQUE: Head CT was performed without intravenous contrast. One or more of the following dose re duction techniques were utilized: *Automated exposure control (AEC) *Adjustment of mA and/or kV according to patient size *Use of iterative reconstruction technique *CT scan done according to ALARA, or ALARA/IMAGE GENTLY FINDINGS: The ventricles and sulci are normal for the patient's stated age. There is no evidence of acute int racranial hemorrhage, extra-axial collection, mass effect, midline shift, or acute territorial infarc t. No lesion of the skull base or the calvarium is seen. The visualized paranasal sinuses, mastoid ai r cells and orbits are normal in appearance. IMPRESSION: No evidence for acute intracranial abnormality. Electronically signed by: Nakul Gonzalez MD (09/15/2021 6:23 PM) [id number]
--- NOTE | 2021-09-15 19:53 | PDOC1 ---
History and Physical Date of Service: DOS: DATE: 09/15/21 TIME: 19:52 Allergies: Allergies: Coded Allergies: codeine (Verified Allergy, Severe, hives, 07/30/21) Current Medications: Current Medications Current Medications Ringer's Solution 1,000 ml @ 1,000 mls/hr Q1H IV ; Start 09/15/21 at 13:45; Stop 09/15/21 at 14:33; Status DC Sodium Chloride 1,000 ml @ 1,000 mls/hr 1X ONCE IV Last administered on 09/15/21at 14:34; Start 09/15/21 at 14:45; Stop 09/15/21 at 15:44; Status DC Sodium Chloride 1,000 ml @ 1,000 mls/hr 1X ONCE IV Last administered on 09/15/21at 16:13; Start 09/15/21 at 16:15; Stop 09/15/21 at 17:14; Status DC Meclizine HCl (Antivert) 25 mg 1X ONCE PO Last administered on 09/15/21at 16:09; Start 09/15/21 at 16:15; Stop 09/15/21 at 16:16; Status DC Active Scripts Active Amlodipine Besylate 5 Mg Tablet 5 Mg PO DAILY 30 Days Tramadol Hcl 50 Mg Tablet 50 Mg PO PRN BID PRN 6 Days Cyclobenzaprine Hcl 10 Mg Tablet 10 Mg PO PRN BID PRN 6 Days Reported Aspirin 81 Mg Tab.chew 1 Tab PO DAILY ROS: Review of Systems Review of System REVIEW OF SYSTEMS: GENERAL: Denies weakness SKIN: No bruising, hair changes or rashes. EYES: No blurred, double or loss of vision. NOSE AND THROAT: No history of nosebleeds, hoarseness or sore throat. HEART: No history of palpitations, chest pain or shortness of breath on exertion. LUNGS: Denies cough, hemoptysis, wheezing or shortness of breath. GASTROINTESTINAL: Denies changes in appetite, nausea, vomiting, diarrhea or constipation. GENITOURINARY: No history of frequency, urgency, hesitancy or nocturia. NEUROLOGIC: Denies history of numbness, tingling, or tremor. PSYCHIATRIC: No history of panic, anxiety or depression. ENDOCRINE: No history of heat or cold intolerance, polyuria or polydipsia. EXTREMITIES: Denies joint pain, pain on walking or stiffness. Physical Exam: Vital Signs: Vital Signs Date Time Temp Pulse Resp B/P (MAP) Pulse Ox O2 Delivery O2 Flow Rate FiO2 09/15/21 17:21 64 180/88 (118) 97 Room Air 09/15/21 13:38 97.7 18 97.7 Physcial Exam: GEN: No apparent distress. Alert and oriented HEENT: Normal cephalic, atraumatic, external auditory canals are patent EYES: Extraocular muscles are intact, pupil are equally round and reactive to light and accommodation MUSCULOSKELETAL: Well developed , well nourished, good range of motion ENDOCRINE: No thyromegaly was palpated LYMPHATICS: No cervical chain or axillary nodes were noted HEMATOPOIETIC: No bruising NECK: Supple, no JVD, no thyromegaly was noted LUNGS: Clear to auscultation in all lung almeida without rhonchi or wheezing HEART: RRR, S!, S2 present. Peripheral pulses intact, no obvious murmurs noted ABDOMEN: Soft, nontender. Positive bowel sounds, no organomegaly, normal bow el sounds EXTREMITIES: Without clubbing, cyanosis, or edema. Pedal pulses intact. Negative Homans sign NEUROLOGIC: Normal speech and tone. A&O x 3, moves all extremities, no obvious focal deficits PSYCHIATRIC: Normal affect, normal mood. Stable SKIN: No ulcerations or rashes, good skin turgor, no jaundice VASCULAR: Good capillary refill, neurovascular bundle appears to be intact Labs: Labs: Laboratory Tests Test 09/15/21 13:48 09/15/21 13:50 Urine Collection Type Unknown Urine Color (Auto) Colorless Urine Turbidity Clear Urine pH (Auto) 7.5 (<5.0-8.0) Urine Specific [place] 1.020 (1.000-1.030) Urine Protein (Auto) Negative mg/dL (Negative) Urine Glucose (Auto)(UA) Negative mg/dL (Negative) Urine Ketones (Auto) Negative mg/dL (Negative) Urine Blood (Auto) Negative (Negative) Urine Nitrite (Auto) Negative (Negative) Urine Bilirubin (Auto) Negative (Negative) Urine Urobilinogen (Auto) Normal mg/dL (Normal) Urine Leukocyte Esterase (Auto) Negative (Negative) Urine RBC Occ /HPF (0-2) Urine WBC Occ /HPF (0-4) Urine Squamous Epithelial Cells Occ /LPF Urine Bacteria 0 /HPF (0-FEW) White Blood Count 7.9 x10^3/uL (4.0-11.0) Red Blood Count 4.46 x10^6/uL (4.30-5.70) Hemoglobin 13.8 g/dL (13.0-17.5) Hematocrit 40.9 % (39.0-53.0) Mean Corpuscular Volume 92 fL (79-100) Mean Corpuscular Hemoglobin 31 pg (25-35) Mean Corpuscular Hemoglobin Concent 34 g/dL (31-37) Red Cell Distribution Width 14.0 % (11.5-14.5) Platelet Count 229 x10^3/uL (140-400) Neutrophils (%) (Auto) 58 % (31-73) Lymphocytes (%) (Auto) 26 % (24-48) Monocytes (%) (Auto) 13 % (0-9) Eosinophils (%) (Auto) 2 % (0-3) Basophils (%) (Auto) 1 % (0-3) Neutrophils # (Auto) 4.6 x10^3/uL (1.8-7.7) Lymphocytes # (Auto) 2.0 x10^3/uL (1.0-4.8) Monocytes # (Auto) 1.0 x10^3/uL (0.0-1.1) Eosinophils # (Auto) 0.1 x10^3/uL (0.0-0.7) Basophils # (Auto) 0.1 x10^3/uL (0.0-0.2) Sodium Level 143 mmol/L (136-145) Potassium Level 4.1 mmol/L (3.5-5.1) Chloride Level 108 mmol/L (98-107) Carbon Dioxide Level 30 mmol/L (21-32) Anion Gap 5 (6-14) Blood Urea Nitrogen 19 mg/dL (8-26) Creatinine 1.0 mg/dL (0.7-1.3) Estimated GFR (Cockcroft-Gault) 76.0 Glucose Level 98 mg/dL (70-99) Calcium Level 8.9 mg/dL (8.5-10.1) Laboratory Tests Test 09/15/21 13:48 09/15/21 13:50 Urine Collection Type Unknown Urine Color (Auto) Colorless Urine Turbidity Clear Urine pH (Auto) 7.5 (<5.0-8.0) Urine Specific [place] 1.020 (1.000-1.030) Urine Protein (Auto) Negative mg/dL (Negative) Urine Glucose (Auto)(UA) Negative mg/dL (Negative) Urine Ketones (Auto) Negative mg/dL (Negative) Urine Blood (Auto) Negative (Negative) Urine Nitrite (Auto) Negative (Negative) Urine Bilirubin (Auto) Negative (Negative) Urine Urobilinogen (Auto) Normal mg/dL (Normal) Urine Leukocyte Esterase (Auto) Negative (Negative) Urine RBC Occ /HPF (0-2) Urine WBC Occ /HPF (0-4) Urine Squamous Epithelial Cells Occ /LPF Urine Bacteria 0 /HPF (0-FEW) White Blood Count 7.9 x10^3/uL (4.0-11.0) Red Blood Count 4.46 x10^6/uL (4.30-5.70) Hemoglobin 13.8 g/dL (13.0-17.5) Hematocrit 40.9 % (39.0-53.0) Mean Corpuscular Volume 92 fL (79-100) Mean Corpuscular Hemoglobin 31 pg (25-35) Mean Corpuscular Hemoglobin Concent 34 g/dL (31-37) Red Cell Distribution Width 14.0 % (11.5-14.5) Platelet Count 229 x10^3/uL (140-400) Neutrophils (%) (Auto) 58 % (31-73) Lymphocytes (%) (Auto) 26 % (24-48) Monocytes (%) (Auto) 13 % (0-9) Eosinophils (%) (Auto) 2 % (0-3) Basophils (%) (Auto) 1 % (0-3) Neutrophils # (Auto) 4.6 x10^3/uL (1.8-7.7) Lymphocytes # (Auto) 2.0 x10^3/uL (1.0-4.8) Monocytes # (Auto) 1.0 x10^3/uL (0.0-1.1) Eosinophils # (Auto) 0.1 x10^3/uL (0.0-0.7) Basophils # (Auto) 0.1 x10^3/uL (0.0-0.2) Sodium Level 143 mmol/L (136-145) Potassium Level 4.1 mmol/L (3.5-5.1) Chloride Level 108 mmol/L (98-107) Carbon Dioxide Level 30 mmol/L (21-32) Anion Gap 5 (6-14) Blood Urea Nitrogen 19 mg/dL (8-26) Creatinine 1.0 mg/dL (0.7-1.3) Estimated GFR (Cockcroft-Gault) 76.0 Glucose Level 98 mg/dL (70-99) Calcium Level 8.9 mg/dL (8.5-10.1) Justifications for Admission Other Justification HORTENSIA SAHU MD September 15, 2021 19:53
--- NOTE | 2021-09-15 19:55 | PDOC1 ---
History and Physical Date of Service: DOS: DATE: 09/15/21 TIME: 19:55 Chief Complaint: Chief Complain: dizziness History of Present Illness: HPI: Patient is a 61 year old male with a recent admission for rhabdo and acute kidney injury who presents to the emergency department today with complaints of dizziness, dry mouth and headache. Patient states that prior to discharge his blood pressure medications was changed to amlodipine. He states since that time he has had a dry mouth as well as dizziness with standing. He states the dizziness resolves shortly thereafter. He denies any associated chest pain or shortness of breath. He denies any nausea, vomiting or diarrhea. He states he has had a mild headache that is intermittent. He states that he has been urinating okay. He denies any abdominal pain. 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, FATTY LIPOMA REMOVED Smoking Status: Former Smoker Alcohol Use: None Drug Use: None Allergies: Allergies: Coded Allergies: codeine (Verified Allergy, Severe, hives, 07/30/21) Current Medications: Current Medications Current Medications Ringer's Solution 1,000 ml @ 1,000 mls/hr Q1H IV ; Start 09/15/21 at 13:45; Stop 09/15/21 at 14:33; Status DC Sodium Chloride 1,000 ml @ 1,000 mls/hr 1X ONCE IV Last administered on 09/15/21at 14:34; Start 09/15/21 at 14:45; Stop 09/15/21 at 15:44; Status DC Sodium Chloride 1,000 ml @ 1,000 mls/hr 1X ONCE IV Last administered on 09/15/21at 16:13; Start 09/15/21 at 16:15; Stop 09/15/21 at 17:14; Status DC Meclizine HCl (Antivert) 25 mg 1X ONCE PO Last administered on 09/15/21at 16:09 ; Start 09/15/21 at 16:15; Stop 09/15/21 at 16:16; Status DC Active Scripts Active Amlodipine Besylate 5 Mg Tablet 5 Mg PO DAILY 30 Days Tramadol Hcl 50 Mg Tablet 50 Mg PO PRN BID PRN 6 Days Cyclobenzaprine Hcl 10 Mg Tablet 10 Mg PO PRN BID PRN 6 Days Reported Aspirin 81 Mg Tab.chew 1 Tab PO DAILY ROS: Review of Systems Review of System REVIEW OF SYSTEMS: GENERAL: Denies weakness SKIN: No bruising, hair changes or rashes. EYES: No blurred, double or loss of vision. NOSE AND THROAT: No history of nosebleeds, hoarseness or sore throat. HEART: No history of palpitations, chest pain or shortness of breath on exertion. LUNGS: Denies cough, hemoptysis, wheezing or shortness of breath. GASTROINTESTINAL: Denies changes in appetite, nausea, vomiting, diarrhea or constipation. GENITOURINARY: No history of frequency, urgency, hesitancy or nocturia. NEUROLOGIC: Denies history of numbness, tingling, or tremor. PSYCHIATRIC: No history of panic, anxiety or depression. ENDOCRINE: No history of heat or cold intolerance, polyuria or polydipsia. EXTREMITIES: Denies joint pain, pain on walking or stiffness. Physical Exam: Vital Signs: Vital Signs Date Time Temp Pulse Resp B/P (MAP) Pulse Ox O2 Delivery O2 Flow Rate FiO2 09/15/21 17:21 64 180/88 (118) 97 Room Air 09/15/21 13:38 97.7 18 97.7 Physcial Exam: GEN: No apparent distress. Alert and oriented HEENT: Normal cephalic, atraumatic, external auditory canals are patent EYES: Extraocular muscles are intact, pupil are equally round and reactive to light and accommodation MUSCULOSKELETAL: Well developed , well nourished, good range of motion ENDOCRINE: No thyromegaly was palpated LYMPHATICS: No cervical chain or axillary nodes were noted HEMATOPOIETIC: No bruising NECK: Supple, no JVD, no thyromegaly was noted LUNGS: Clear to auscultation in all lung almeida without rhonchi or wheezing HEART: RRR, S!, S2 present. Peripheral pulses intact, no obvious murmurs noted ABDOMEN: Soft, nontender. Positive bowel sounds, no organomegaly, normal bowel sounds EXTREMITIES: Without clubbing, cyanosis, or edema. Pedal pulses intact. Negative Homans sign NEUROLOGIC: Normal speech and tone. A&O x 3, moves all extremities, no obvious focal deficits PSYCHIATRIC: Normal affect, normal mood. Stable SKIN: No ulcerations or rashes, good skin turgor, no jaundice VASCULAR: Good capillary refill, neurovascular bundle appears to be intact Labs: Labs: Laboratory Tests Test 09/15/21 13:48 09/15/21 13:50 Urine Collection Type Unknown Urine Color (Auto) Colorless Urine Turbidity Clear Urine pH (Auto) 7.5 (<5.0-8.0) Urine Specific [place] 1.020 (1.000-1.030) Urine Protein (Auto) Negative mg/dL (Negative) Urine Glucose (Auto)(UA) Negative mg/dL (Negative) Urine Ketones (Auto) Negative mg/dL (Negative) Urine Blood (Auto) Negative (Negative) Urine Nitrite (Auto) Negative (Negative) Urine Bilirubin (Auto) Negative (Negative) Urine Urobilinogen (Auto) Normal mg/dL (Normal) Urine Leukocyte Esterase (Auto) Negative (Negative) Urine RBC Occ /HPF (0-2) Urine WBC Occ /HPF (0-4) Urine Squamous Epithelial Cells Occ /LPF Urine Bacteria 0 /HPF (0-FEW) White Blood Count 7.9 x10^3/uL (4.0-11.0) Red Blood Count 4.46 x10^6/uL (4.30-5.70) Hemoglobin 13.8 g/dL (13.0-17.5) Hematocrit 40.9 % (39.0-53.0) Mean Corpuscular Volume 92 fL (79-100) Mean Corpuscular Hemoglobin 31 pg (25-35) Mean Corpuscular Hemoglobin Concent 34 g/dL (31-37) Red Cell Distribution Width 14.0 % (11.5-14.5) Platelet Count 229 x10^3/uL (140-400) Neutrophils (%) (Auto) 58 % (31-73) Lymphocytes (%) (Auto) 26 % (24-48) Monocytes (%) (Auto) 13 % (0-9) Eosinophils (%) (Auto) 2 % (0-3) Basophils (%) (Auto) 1 % (0-3) Neutrophils # (Auto) 4.6 x10^3/uL (1.8-7.7) Lymphocytes # (Auto) 2.0 x10^3/uL (1.0-4.8) Monocytes # (Auto) 1.0 x10^3/uL (0.0-1.1) Eosinophils # (Auto) 0.1 x10^3/uL (0.0-0.7) Basophils # (Auto) 0.1 x10^3/uL (0.0-0.2) Sodium Level 143 mmol/L (136-145) Potassium Level 4.1 mmol/L (3.5-5.1) Chloride Level 108 mmol/L (98-107) Carbon Dioxide Level 30 mmol/L (21-32) Anion Gap 5 (6-14) Blood Urea Nitrogen 19 mg/dL (8-26) Creatinine 1.0 mg/dL (0.7-1.3) Estimated GFR (Cockcroft-Gault) 76.0 Glucose Level 98 mg/dL (70-99) Calcium Level 8.9 mg/dL (8.5-10.1) Laboratory Tests Test 09/15/21 13:48 09/15/21 13:50 Urine Collection Type Unknown Urine Color (Auto) Colorless Urine Turbidity Clear Urine pH (Auto) 7.5 (<5.0-8.0) Urine Specific [place] 1.020 (1.000-1.030) Urine Protein (Auto) Negative mg/dL (Negative) Urine Glucose (Auto)(UA) Negative mg/dL (Negative) Urine Ketones (Auto) Negative mg/dL (Negative) Urine Blood (Auto) Negative (Negative) Urine Nitrite (Auto) Negative (Negative) Urine Bilirubin (Auto) Negative (Negative) Urine Urobilinogen (Auto) Normal mg/dL (Normal) Urine Leukocyte Esterase (Auto) Negative (Negative) Urine RBC Occ /HPF (0-2) Urine WBC Occ /HPF (0-4) Urine Squamous Epithelial Cells Occ /LPF Urine Bacteria 0 /HPF (0-FEW) White Blood Count 7.9 x10^3/uL (4.0-11.0) Red Blood Count 4.46 x10^6/uL (4.30-5.70) Hemoglobin 13.8 g/dL (13.0-17.5) Hematocrit 40.9 % (39.0-53.0) Mean Corpuscular Volume 92 fL (79-100) Mean Corpuscular Hemoglobin 31 pg (25-35) Mean Corpuscular Hemoglobin Concent 34 g/dL (31-37) Red Cell Distribution Width 14.0 % (11.5-14.5) Platelet Count 229 x10^3/uL (140-400) Neutrophils (%) (Auto) 58 % (31-73) Lymphocytes (%) (Auto) 26 % (24-48) Monocytes (%) (Auto) 13 % (0-9) Eosinophils (%) (Auto) 2 % (0-3) Basophils (%) (Auto) 1 % (0-3) Neutrophils # (Auto) 4.6 x10^3/uL (1.8-7.7) Lymphocytes # (Auto) 2.0 x10^3/uL (1.0-4.8) Monocytes # (Auto) 1.0 x10^3/uL (0.0-1.1) Eosinophils # (Auto) 0.1 x10^3/uL (0.0-0.7) Basophils # (Auto) 0.1 x10^3/uL (0.0-0.2) Sodium Level 143 mmol/L (136-145) Potassium Level 4.1 mmol/L (3.5-5.1) Chloride Level 108 mmol/L (98-107) Carbon Dioxide Level 30 mmol/L (21-32) Anion Gap 5 (6-14) Blood Urea Nitrogen 19 mg/dL (8-26) Creatinine 1.0 mg/dL (0.7-1.3) Estimated GFR (Cockcroft-Gault) 76.0 Glucose Level 98 mg/dL (70-99) Calcium Level 8.9 mg/dL (8.5-10.1) Assessment/Plan Assessment/Plan Dizziness, Hypertension, -admit to tele -Will hold off home amlodipine; prior to last admission he was on Lisinopril but changed to Amlodipine due to kidney function -patient uncertain if kidney function was only reason Lisinopril stopped; will just go ahead and start on losartan -PT/OT -DVT ppx -orthostatics Justifications for Admission Other Justification HORTENSIA SAHU MD September 15, 2021 19:55
[2021-09-15] MEDS ORDERED: hydrALAZINE 20 MG/ML VIAL. IVP PRN (20:00)
[2021-09-15] MEDS ORDERED: ONDANSETRON PF 4 MG/2 ML VIAL. IVP PRN (20:00)
[2021-09-15] MEDS ORDERED: ELECTROLYTE (NON-ICU) PROTOCOL. MC PRN (20:00)
[2021-09-15] MEDS ORDERED: CALCIUM CARBONATE 500 MG TAB.CHEW PO PRN (20:00)
[2021-09-15] MEDS ORDERED: oxyCODONE/APAP 5/325 1 TAB TABLET PO PRN ×2 (20:00)
[2021-09-15] MEDS ORDERED: ACETAMINOPHEN 325 MG TABLET. PO PRN (20:00)
[2021-09-15 20:35] VITALS: BP 185/87
[2021-09-15] MEDS: LOSARTAN POTASSIUM 50 MG TABLET. PO SCH (20:48)
[2021-09-15] MEDS: SENNOSIDES/DOCUSATE 8.6/50MG TABLET. PO SCH (20:52)
[2021-09-15] MEDS: HEPARIN for SUB-Q USE 5,000 UNIT/ML VIAL. SQ SCH (21:00)
[2021-09-15 23:17] VITALS: BP 159/73
[2021-09-16 03:00] VITALS: BP_SYST 122; BP_SYST 131; BP_SYST 132; BP_DIAS 76; BP_DIAS 90; BP_DIAS 93
[2021-09-16] MEDS: HEPARIN for SUB-Q USE 5,000 UNIT/ML VIAL. SQ SCH (06:01)
[2021-09-16 07:00] VITALS: BP 159/84
[2021-09-16] MEDS: SENNOSIDES/DOCUSATE 8.6/50MG TABLET. PO SCH (07:06)
--- NOTE | 2021-09-16 07:15 | PDOC ---
[facility] [facility] PROGRESS NOTE Date of Service DOS: DATE: 09/16/21 TIME: 07:07 Chief Complaint Chief Complaint Dizziness - with left leg unsteadiness. Improved. Weakness - left leg. He notes this has been going on over a year and after working with therapy recommended to have a walker. An MRI last month with no acute CVA but some possible demyelination. Ex-smoker - counseled on continued cessation counseling DM2 - A1c was 5.7 last hospital stay. sliding scale insulin HTN -changed from lisinopril to amlodipine hep C in SVR Low back pain -likely musculoskeletal from overuse due to ongoing. History of Present Illness History of Present Illness Mr Patterson is a 61 yo M w/ PMHx ex-smoker, DM2, hep C in SVR who presents to ED c/o muscle cramping, weakness and dizziness and dry mouth. Was admitted for hypertensive urgency and concern for ataxia over month ago and readmitted for acute kidney injury 2 weeks ago and transition from losartan to amlodipine for antihypertensives due to his renal failure. 09/16: Patient with blood pressure 179/95 this morning still feeling a little lightheaded. Blood work with occupational therapy. He notes that he threw out all his losartan after his last hospital stay and he would not be willing to restart amlodipine given his previous symptoms he blames amlodipine for dizziness lightheadedness and thinks he passed out in the bathroom. Currently he has a headache 3-10 bitemporal. He is still feeling unsteady. Improved with using a walker. Started on metoprolol instead in addition to his old losartan. With a walker he notes he does not want further work-up at this time. Vitals/I&O Vitals/I&O: Vital Signs Date Time Temp Pulse Resp B/P (MAP) Pulse Ox O2 Delivery O2 Flow Rate FiO2 09/16/21 03:00 97.9 63 18 122/76 (91) 94 Room Air 97.9 132/90 (104) 131/93 (106) I & O 09/15/21 09/15/21 09/16/21 15:00 23:00 07:00 Intake Total 2000 ml 120 ml Output Total 725 ml Balance 2000 ml -605 ml Physical Exam General: Alert, Oriented X3, Cooperative, mild distress Heart: Regular rate, Normal S1, Normal S2 Lungs: Clear, Other Abdomen: Normal bowel sounds, Soft Extremities: No clubbing, No cyanosis Skin: No rashes, No breakdown Labs Labs: Laboratory Tests Test 09/15/21 13:48 09/15/21 13:50 Urine Collection Type Unknown Urine Color (Auto) Colorless Urine Turbidity Clear Urine pH (Auto) 7.5 (<5.0-8.0) Urine Specific [place] 1.020 (1.000-1.030) Urine Protein (Auto) Negative mg/dL (Negative) Urine Glucose (Auto)(UA) Negative mg/dL (Negative) Urine Ketones (Auto) Negative mg/dL (Negative) Urine Blood (Auto) Negative (Negative) Urine Nitrite (Auto) Negative (Negative) Urine Bilirubin (Auto) Negative (Negative) Urine Urobilinogen (Auto) Normal mg/dL (Normal) Urine Leukocyte Esterase (Auto) Negative (Negative) Urine RBC Occ /HPF (0-2) Urine WBC Occ /HPF (0-4) Urine Squamous Epithelial Cells Occ /LPF Urine Bacteria 0 /HPF (0-FEW) White Blood Count 7.9 x10^3/uL (4.0-11.0) Red Blood Count 4.46 x10^6/uL (4.30-5.70) Hemoglobin 13.8 g/dL (13.0-17.5) Hematocrit 40.9 % (39.0-53.0) Mean Corpuscular Volume 92 fL (79-100) Mean Corpuscular Hemoglobin 31 pg (25-35) Mean Corpuscular Hemoglobin Concent 34 g/dL (31-37) Red Cell Distribution Width 14.0 % (11.5-14.5) Platelet Count 229 x10^3/uL (140-400) Neutrophils (%) (Auto) 58 % (31-73) Lymphocytes (%) (Auto) 26 % (24-48) Monocytes (%) (Auto) 13 % (0-9) Eosinophils (%) (Auto) 2 % (0-3) Basophils (%) (Auto) 1 % (0-3) Neutrophils # (Auto) 4.6 x10^3/uL (1.8-7.7) Lymphocytes # (Auto) 2.0 x10^3/uL (1.0-4.8) Monocytes # (Auto) 1.0 x10^3/uL (0.0-1.1) Eosinophils # (Auto) 0.1 x10^3/uL (0.0-0.7) Basophils # (Auto) 0.1 x10^3/uL (0.0-0.2) Sodium Level 143 mmol/L (136-145) Potassium Level 4.1 mmol/L (3.5-5.1) Chloride Level 108 mmol/L (98-107) Carbon Dioxide Level 30 mmol/L (21-32) Anion Gap 5 (6-14) Blood Urea Nitrogen 19 mg/dL (8-26) Creatinine 1.0 mg/dL (0.7-1.3) Estimated GFR (Cockcroft-Gault) 76.0 Glucose Level 98 mg/dL (70-99) Calcium Level 8.9 mg/dL (8.5-10.1) Assessment and Plan Assessmemt and Plan Problems Medical Problems: (1) Dizziness Status: Acute Comment Review of Relevant I have reviewed the following items chase (where applicable) has been applied. Medications: Current Medications Medications (Trade) Dose Ordered Sig/Kristy Route PRN Reason Start Time Stop Time Status Last Admin Dose Admin Sodium Chloride 1,000 ml @ 1,000 mls/hr 1X ONCE IV 09/15/21 14:45 09/15/21 15:44 DC 09/15/21 14:34 Sodium Chloride 1,000 ml @ 1,000 mls/hr 1X ONCE IV 09/15/21 16:15 09/15/21 17:14 DC 09/15/21 16:13 Meclizine HCl (Antivert) 25 mg 1X ONCE PO 09/15/21 16:15 09/15/21 16:16 DC 09/15/21 16:09 Heparin Sodium (Porcine) (Heparin Sodium) 5,000 unit Q8HRS SQ 09/15/21 22:00 09/16/21 06:01 Hydralazine HCl (Apresoline Inj) 10 mg PRN Q4HRS PRN IVP ELEVATED BP, SEE COMMENTS 09/15/21 20:00 09/15/21 20:49 Losartan Potassium (Cozaar) 50 mg DAILY PO 09/15/21 20:00 09/15/21 20:48 Justifications for Admission Other Justification HORTENSIA ANGELES MD September 16, 2021 07:15
[2021-09-16] MEDS: LOSARTAN POTASSIUM 50 MG TABLET. PO SCH (07:56)
[2021-09-16] MEDS ORDERED: ASPIRIN CHEWABLE 81 MG TABLET. PO SCH (09:00)
[2021-09-16 10:35] VITALS: BP 172/86
[2021-09-16 10:58] VITALS: BP 172/84
[2021-09-16] MEDS ORDERED: METOPROLOL TART IMMED RELEASE 25 MG TABLET. PO SCH (11:00)
[2021-09-16] MEDS ORDERED: LOSA-73 PO (13:12)
[2021-09-16] MEDS ORDERED: METO25TA4 PO (13:12)
--- NOTE | 2021-09-16 13:15 | PDOC3 ---
Discharge Summary Visit Information Date of Admission: September 15, 2021 Date of Discharge: September 16, 2021 Admitting Diagnosis: Dizziness Final Diagnosis Problems Medical Problems: (1) Dizziness Status: Acute Brief Hospital Course Allergies Allergies Coded Allergies Type Severity Reaction Last Updated Verified codeine Allergy Severe hives 07/30/21 Yes Vital Signs Vital Signs Date Time Temp Pulse Resp B/P (MAP) Pulse Ox O2 Delivery O2 Flow Rate FiO2 09/16/21 10:58 88 172/84 09/16/21 10:35 97.9 18 94 Room Air 97.9 Lab Results Laboratory Tests Test 09/15/21 13:48 09/15/21 13:50 Urine Collection Type Unknown Urine Color (Auto) Colorless Urine Turbidity Clear Urine pH (Auto) 7.5 (<5.0-8.0) Urine Specific [place] 1.020 (1.000-1.030) Urine Protein (Auto) Negative mg/dL (Negative) Urine Glucose (Auto)(UA) Negative mg/dL (Negative) Urine Ketones (Auto) Negative mg/dL (Negative) Urine Blood (Auto) Negative (Negative) Urine Nitrite (Auto) Negative (Negative) Urine Bilirubin (Auto) Negative (Negative) Urine Urobilinogen (Auto) Normal mg/dL (Normal) Urine Leukocyte Esterase (Auto) Negative (Negative) Urine RBC Occ /HPF (0-2) Urine WBC Occ /HPF (0-4) Urine Squamous Epithelial Cells Occ /LPF Urine Bacteria 0 /HPF (0-FEW) White Blood Count 7.9 x10^3/uL (4.0-11.0) Red Blood Count 4.46 x10^6/uL (4.30-5.70) Hemoglobin 13.8 g/dL (13.0-17.5) Hematocrit 40.9 % (39.0-53.0) Mean Corpuscular Volume 92 fL (79-100) Mean Corpuscular Hemoglobin 31 pg (25-35) Mean Corpuscular Hemoglobin Concent 34 g/dL (31-37) Red Cell Distribution Width 14.0 % (11.5-14.5) Platelet Count 229 x10^3/uL (140-400) Neutrophils (%) (Auto) 58 % (31-73) Lymphocytes (%) (Auto) 26 % (24-48) Monocytes (%) (Auto) 13 % (0-9) Eosinophils (%) (Auto) 2 % (0-3) Basophils (%) (Auto) 1 % (0-3) Neutrophils # (Auto) 4.6 x10^3/uL (1.8-7.7) Lymphocytes # (Auto) 2.0 x10^3/uL (1.0-4.8) Monocytes # (Auto) 1.0 x10^3/uL (0.0-1.1) Eosinophils # (Auto) 0.1 x10^3/uL (0.0-0.7) Basophils # (Auto) 0.1 x10^3/uL (0.0-0.2) Sodium Level 143 mmol/L (136-145) Potassium Level 4.1 mmol/L (3.5-5.1) Chloride Level 108 mmol/L (98-107) Carbon Dioxide Level 30 mmol/L (21-32) Anion Gap 5 (6-14) Blood Urea Nitrogen 19 mg/dL (8-26) Creatinine 1.0 mg/dL (0.7-1.3) Estimated GFR (Cockcroft-Gault) 76.0 Glucose Level 98 mg/dL (70-99) Calcium Level 8.9 mg/dL (8.5-10.1) Laboratory Tests Test 09/15/21 13:48 09/15/21 13:50 Urine Collection Type Unknown Urine Color (Auto) Colorless Urine Turbidity Clear Urine pH (Auto) 7.5 (<5.0-8.0) Urine Specific [place] 1.020 (1.000-1.030) Urine Protein (Auto) Negative mg/dL (Negative) Urine Glucose (Auto)(UA) Negative mg/dL (Negative) Urine Ketones (Auto) Negative mg/dL (Negative) Urine Blood (Auto) Negative (Negative) Urine Nitrite (Auto) Negative (Negative) Urine Bilirubin (Auto) Negative (Negative) Urine Urobilinogen (Auto) Normal mg/dL (Normal) Urine Leukocyte Esterase (Auto) Negative (Negative) Urine RBC Occ /HPF (0-2) Urine WBC Occ /HPF (0-4) Urine Squamous Epithelial Cells Occ /LPF Urine Bacteria 0 /HPF (0-FEW) White Blood Count 7.9 x10^3/uL (4.0-11.0) Red Blood Count 4.46 x10^6/uL (4.30-5.70) Hemoglobin 13.8 g/dL (13.0-17.5) Hematocrit 40.9 % (39.0-53.0) Mean Corpuscular Volume 92 fL (79-100) Mean Corpuscular Hemoglobin 31 pg (25-35) Mean Corpuscular Hemoglobin Concent 34 g/dL (31-37) Red Cell Distribution Width 14.0 % (11.5-14.5) Platelet Count 229 x10^3/uL (140-400) Neutrophils (%) (Auto) 58 % (31-73) Lymphocytes (%) (Auto) 26 % (24-48) Monocytes (%) (Auto) 13 % (0-9) Eosinophils (%) (Auto) 2 % (0-3) Basophils (%) (Auto) 1 % (0-3) Neutrophils # (Auto) 4.6 x10^3/uL (1.8-7.7) Lymphocytes # (Auto) 2.0 x10^3/uL (1.0-4.8) Monocytes # (Auto) 1.0 x10^3/uL (0.0-1.1) Eosinophils # (Auto) 0.1 x10^3/uL (0.0-0.7) Basophils # (Auto) 0.1 x10^3/uL (0.0-0.2) Sodium Level 143 mmol/L (136-145) Potassium Level 4.1 mmol/L (3.5-5.1) Chloride Level 108 mmol/L (98-107) Carbon Dioxide Level 30 mmol/L (21-32) Anion Gap 5 (6-14) Blood Urea Nitrogen 19 mg/dL (8-26) Creatinine 1.0 mg/dL (0.7-1.3) Estimated GFR (Cockcroft-Gault) 76.0 Glucose Level 98 mg/dL (70-99) Calcium Level 8.9 mg/dL (8.5-10.1) Brief Hospital Course Mr Patterson is a 61 yo M w/ PMHx ex-smoker, DM2, hep C in SVR who presents to ED c/o muscle cramping, weakness and dizziness and dry mouth. Was admitted for hypertensive urgency and concern for ataxia over month ago and readmitted for acute kidney injury 2 weeks ago and transition from losartan to amlodipine for antihypertensives due to his renal failure. 09/16: Patient with blood pressure 179/95 this morning still feeling a little lightheaded. Blood work with occupational therapy. He notes that he threw out all his losartan after his last hospital stay and he would not be willing to restart amlodipine given his previous symptoms he blames amlodipine for dizziness lightheadedness and thinks he passed out in the bathroom. Currently he has a headache 3-10 bitemporal. He is still feeling unsteady. Improved with using a walker. Started on metoprolol instead in addition to his old losartan. With a walker he notes he does not want further work-up at this time. Problem list: Dizziness - with left leg unsteadiness. Improved. Weakness - left leg. He notes this has been going on over a year and after working with therapy recommended to have a walker. An MRI last month with no acute CVA but some possible demyelination. Ex-smoker - counseled on continued cessation counseling DM2 - A1c was 5.7 last hospital stay. sliding scale insulin HTN -changed from lisinopril to amlodipine, now on losartan and metoprolol 12.5mg BID hep C in SVR Low back pain -likely musculoskeletal from overuse due to ongoing. Greater than 30 minutes spent on discharge home with self-care and walker Discharge Information Condition at Discharge: Improved Follow Up: Weeks (1) Disposition/Orders: D/C to Home Scheduled Aspirin (Aspirin) 81 Mg Tab.chew, 1 TAB PO DAILY for prophylaxis, #30 (Reported) Entered as Reported by: CHEMA LONG on 06/26/211736 Last Action: Continued on 09/15/211955 by HORTENSIA SAHU MD Losartan Potassium (Cozaar ) 50 Mg Tablet, 50 MG PO DAILY for HTN for 30 Days, #30 Ref 5 Prescribed by: HORTENSIA ANGELES MD on 09/16/21 1312 Metoprolol Tartrate (Metoprolol Tartrate) 25 Mg Tablet, 12.5 MG PO BID for HTN/LAZCANO for 30 Days, #30 Ref 5 Prescribed by: HORTENSIA ANGELES MD on 09/16/21 1312 Scheduled PRN Tramadol Hcl (Tramadol Hcl) 50 Mg Tablet, 50 MG PO PRN BID PRN for PAIN for 6 Days, #12 Prescribed by: HORTENSIA ANGELES MD on 09/05/21854 Last Action: HELD on 09/15/211955 by HORTENSIA SAHU MD Discontinued Medications Amlodipine Besylate (Amlodipine Besylate) 5 Mg Tablet, 5 MG PO DAILY for HTN for 30 Days, #30 Ref 5 Prescribed by: HORTENSIA ANGELES MD on 09/05/21852 Last Action: HELD on 09/15/211955 by HORTENSIA SAHU MD Cyclobenzaprine Hcl (Cyclobenzaprine Hcl) 10 Mg Tablet, 10 MG PO PRN BID PRN for MUSCLE SPASMS for 6 Days, #12 Prescribed by: HORTENSIA ANGELES MD on 09/05/21852 Last Action: HELD on 09/15/211955 by HORTENSIA SAHU MD Justicifation of Admission Dx: Justifications for Admission: Justification of Admission Dx: N/A HORTENSIA ANGELES MD September 16, 2021 13:15
--- NOTE | 2021-09-16 14:17 | NUR ---
Discharge Note: SAM WATTERS[address] [facility] Discharge instructions and discharge home medications reviewed with Patient and a copy given. All questions have been answered and understanding verbalized. The following instructions and handouts were given: Follow up and new medications Discontinued lines and drains: Removed IV and certified alcohol counselor Patient discharged to home
--- NOTE | 2021-09-19 07:54 | EKG ---
[facility] [address] [place] [address] Test Date: 2021-09-15 Test Time: 13:55:11 Pat Name: SAM WATTERS Department: Room: [facility] Gender: M Support Teacher: : 1960 Requested By: MARTHA RICH Order Number: [id number] Reading MD: Jesus Murillo MD Measurements Intervals [place] Rate: 64 P: -20 LA: 172 QRS: -2 QRSD: 88 T: -8 QT: 402 QTc: 419 Interpretive Statements SINUS RHYTHM Electronically Signed On 09-24-2021 11:37:04 CDT by Jesus Murillo MD
== END 2021-09-16 14:15 | disposition home or self-care (01) | DRG 149 ==
LOC: ER 13:12 → 6 SOUTH 18:42 → OBSVTOIN 18:42
PROVIDERS: ADMIT Student in an Organized Health Care Education/Training Program; ATTEND Student in an Organized Health Care Education/Training Program
DX: R42 Dizziness and giddiness (principal); B19.20 Unspecified viral hepatitis C without hepatic coma; D17.9 Benign lipomatous neoplasm, unspecified; E11.649 Type 2 diabetes mellitus with hypoglycemia without coma; I10 Essential (primary) hypertension; Z87.891 Personal history of nicotine dependence; Z88.8 Allergy status to other drugs, medicaments and biological substances; M54.50 Low back pain, unspecified
CPT/HCPCS: 36415; 70450; 80048; 81001; 85025; 93005; 96360; 96361; J0360; J1644; J7030; 97116-GP; 99285-25; G0378; J8597

== ENCOUNTER 2021-09-17 08:12 | Observation (INO) | payer SELFPAY ==
[~2021-09-17] VITALS: Ht 170.2 cm; Wt 80.4 kg
[~2021-09-17 08:12] MED LIST changes: +LOSA-73 PO; +METO25TA4 PO
[2021-09-17 09:49] LABS: BASO # 0.1 x10^3/uL (0.0-0.2); BASO % 1 % (0-3); EOS # 0.1 x10^3/uL (0.0-0.7); EOS % 2 % (0-3); HEMATOCRIT 44.7 % (39.0-53.0); HEMOGLOBIN 15.3 g/dL (13.0-17.5); LYMPH # 1.5 x10^3/uL (1.0-4.8); LYMPH % 17 % (24-48); MEAN CORPUSCULAR HEMOGLOBIN 31 pg (25-35); MEAN CORPUSCULAR HGB CONC 34 g/dL (31-37); MEAN CORPUSCULAR VOLUME 90 fL (79-100); MONO # 0.9 x10^3/uL (0.0-1.1); MONO % 10 % (0-9); NEUT % 70 % (31-73); PLATELET COUNT 266 x10^3/uL (140-400); RED BLOOD COUNT 4.96 x10^6/uL (4.30-5.70); RED CELL DISTRIBUTION WIDTH 13.8 % (11.5-14.5); WHITE BLOOD COUNT 8.5 x10^3/uL (4.0-11.0)
[2021-09-17 09:56] LABS: CALCIUM 8.9 mg/dL (8.5-10.1); CREATININE 1.1 mg/dL (0.7-1.3); GFR 68.1
[2021-09-17 09:58] LABS: PROTHROMBIN TIME PATIENT 13.3 SEC (11.7-14.0)
[2021-09-17 10:02] LABS: ALBUMIN 3.7 g/dL (3.4-5.0); ALBUMIN/GLOBULIN RATIO 0.9 (1.0-1.7); TOTAL BILIRUBIN 0.5 mg/dL (0.2-1.0); TOTAL PROTEIN 7.6 g/dL (6.4-8.2)
--- NOTE | 2021-09-17 10:29 | EKG ---
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
[2021-09-17 13:16] LABS: FECAL OB PT POSITIVE (NEG)
[2021-09-17 14:29] VITALS: BP 158/79
--- NOTE | 2021-09-17 15:29 | PDOC1 ---
History and Physical Date of Admission Date of Admission DATE: 09/17/21 TIME: 15:29 Identification/Chief Complaint Chief Complaint Bright red blood per rectum Source Source: Patient History of Present Illness History of Present Illness Mr Patterson is a 61 yo M w/ PMHx ex-smoker, DM2, hep C in SVR who presents to ED c/o large amounts of bright red blood in his stool at home x1 and x2 episodes in the ED with diaphoresis and lightheadedness. Was admitted for hypertensive urgency and concern for ataxia over month ago and readmitted for acute kidney injury 2 weeks ago and transition from losartan to amlodipine for antihype rtensives due to his renal failure. He was admitted third time for concern for side effects from the amlodipine which he stopped and was changed to metoprolol and losartan and returns now. He was on Lovenox for several days as well as aspirin therapy. He notes no history of colonoscopy previously no prior known diagnosis of diverticulosis. No hemorrhoids. WBC 8.5, Hb 15.3, platelets 266, alkaline phosphatase 141 glucose 100 otherwise chemistry panel within normal limits INR 1, PTT 32 fecal occult blood positive Past Medical History Cardiovascular: HTN Pulmonary: No pertinent hx GI: GERD Hepatobiliary: Other Infectious disease: Other Endocrine: Other Past Surgical History Past Surgical History: No pertinent history Family History Family History: Coronary Artery Disease Social History Smoke: Quit ALCOHOL: none Drugs: None Current Medications Current Medications Active Scripts Active Metoprolol Tartrate 25 Mg Tablet 12.5 Mg PO BID 30 Days Cozaar (Losartan Potassium) 50 Mg Tablet 50 Mg PO DAILY 30 Days Tramadol Hcl 50 Mg Tablet 50 Mg PO PRN BID PRN 6 Days Reported Aspirin 81 Mg Tab.chew 1 Tab PO DAILY Allergies Allergies: Coded Allergies: codeine (Verified Allergy, Severe, hives, 07/30/21) ROS General: No: Chills, Night Sweats, Fatigue, Malaise, Appetite, Other PSYCHOLOGICAL ROS: No: Anxiety, Behavioral Disorder, Concentration difficultie, Decreased libido, Depression, Disorientation, Hallucinations, Hostility, Irrita blity, Memory difficulties, Mood Swings, Obsessive thoughts, Physical abuse, Sexual abuse, Sleep disturbances, Suicidal ideation, Other Eyes: No Blurry vision, No Decreased vision, No Double vision, No Dry eyes, No Excessive tearing, No Eye Pain, No Itchy Eyes, No Loss of vision, No Photophobia, No Scotomata, No Uses contacts, No Uses glasses, No Other HEENT: No: Heacaches, Visual Changes, Hearing change, Nasal congestion, Nasal discharge, Oral lesions, Sinus pain, Sore Throat, Epistaxis, Sneezing, Snoring, Tinnitus, Vertigo, Vocal changes, Other ALLERGY AND IMMUNOLOGY: No: Hives, Insect Bite Sensitivity, Itchy/Watery Eyes, Nasal Congestion, Post Nasal Drip, Seasonal Allergies, Other Hematological and Lymphatic: No: Bleeding Problems, Blood Clots, Blood Transfusions, Brusing, Night Sweats, Pallor, Swollen Lymph Nodes, Other ENDOCRINE: No: Breast Changes, Galactorrhea, Hair Pattern Changes, Hot Flashes, Malaise/lethargy, Mood Swings, Palpitations, Polydipsia/polyuria, Skin Changes, Temperature Intolerance, Unexpected Weight Changes, Other Breast: No New/Changing Breast Lumps, No Nipple changes, No Nipple discharge, No Other Respiratory: No: Cough, Hemoptysis, Orthopnea, Pleuritic Pain, Shortness of breath, SOB with excertion, Sputum Changes, Stridor, Tachypnea, Wheezing, Other Cardiovascular: No Chest Pain, No Palpitations, No Orthopnea, No Paroxysmal Noc. Dyspnea, No Edema, No Other Gastrointestinal: Yes Hematochezia; No Nausea, No Vomiting, No Abdominal Pain, No Diarrhea, No Constipation, No Melena, No Other Genitourinary: No Dysuria, No Frequency, No Incontinence, No Hematuria, No Retention, No Discharge, No Urgency, No Pain, No Flank Pain, No Other, No , No , No , No , No , No , No Musculoskeletal: Yes Gait Disturbance; No Joint Pain, No Joint Stiffness, No Joint Swelling, No Muscle Pain, No Muscular Weakness, No Pain In:, No Swelling In:, No Other Neurological: Yes Gait Disturbance; No Behavorial Changes, No Bowel/Bladder ControlChng, No Confusion, No Dizziness, No Headaches, No Impaired Coord/balance, No Memory Loss, No Numbness/Tingling, No Seizures, No Speech Problems, No Tremors, No Visual Changes, No Weakness, No Other Skin: No Dry Skin, No Eczema, No Hair Changes, No Lumps, No Mole Changes, No Mottling, No Nail Changes, No Pruritus, No Rash, No Skin Lesion Changes, No Other, No Acne Physical Exam General: Alert, Oriented X3, Cooperative, No acute distress HEENT: Atraumatic, PERRLA, EOMI, Mucous membr. moist/pink Lungs: Clear to auscultation, Normal air movement Heart: S1S2, RRR, no thrills, no rubs, no gallops, no murmurs Abdomen: Normal bowel sounds, Soft, No tenderness, No hepatosplenomegaly, No masses Male Genitals Exam: normal genitalia, normal prostate Rectal Exam: other (Hemorrhoids guaiac positive) Extremities: No clubbing, No cyanosis, No edema, Normal pulses, No tenderness/swelling Skin: No rashes, No breakdown, No significant lesion Neuro: Normal speech, Strength at 5/5 X4 ext, Normal tone, Sensation intact, Cranial nerves 3-12 NL, Other (Unsteady on right) Psych/Mental Status: Mental status NL, Mood NL Vitals Vitals Vital Signs Date Time Temp Pulse Resp B/P (MAP) Pulse Ox O2 Delivery O2 Flow Rate FiO2 09/17/21 15:15 Room Air 09/17/21 14:29 97.8 93 20 158/79 (105) 96 97.8 Labs Labs Laboratory Tests Test 09/17/21 09:15 09/17/21 12:00 White Blood Count 8.5 x10^3/uL (4.0-11.0) Red Blood Count 4.96 x10^6/uL (4.30-5.70) Hemoglobin 15.3 g/dL (13.0-17.5) Hematocrit 44.7 % (39.0-53.0) Mean Corpuscular Volume 90 fL (79-100) Mean Corpuscular Hemoglobin 31 pg (25-35) Mean Corpuscular Hemoglobin Concent 34 g/dL (31-37) Red Cell Distribution Width 13.8 % (11.5-14.5) Platelet Count 266 x10^3/uL (140-400) Neutrophils (%) (Auto) 70 % (31-73) Lymphocytes (%) (Auto) 17 % (24-48) Monocytes (%) (Auto) 10 % (0-9) Eosinophils (%) (Auto) 2 % (0-3) Basophils (%) (Auto) 1 % (0-3) Neutrophils # (Auto) 6.0 x10^3/uL (1.8-7.7) Lymphocytes # (Auto) 1.5 x10^3/uL (1.0-4.8) Monocytes # (Auto) 0.9 x10^3/uL (0.0-1.1) Eosinophils # (Auto) 0.1 x10^3/uL (0.0-0.7) Basophils # (Auto) 0.1 x10^3/uL (0.0-0.2) Prothrombin Time 13.3 SEC (11.7-14.0) Prothromb Time International Ratio 1.0 (0.8-1.1) Activated Partial Thromboplast Time 32 SEC (24-38) Sodium Level 142 mmol/L (136-145) Potassium Level 4.0 mmol/L (3.5-5.1) Chloride Level 106 mmol/L (98-107) Carbon Dioxide Level 26 mmol/L (21-32) Anion Gap 10 (6-14) Blood Urea Nitrogen 17 mg/dL (8-26) Creatinine 1.1 mg/dL (0.7-1.3) Estimated GFR (Cockcroft-Gault) 68.1 BUN/Creatinine Ratio 15 (6-20) Glucose Level 100 mg/dL (70-99) Calcium Level 8.9 mg/dL (8.5-10.1) Total Bilirubin 0.5 mg/dL (0.2-1.0) Aspartate Amino Transf (AST/SGOT) 29 U/L (15-37) Alanine Aminotransferase (ALT/SGPT) 52 U/L (16-63) Alkaline Phosphatase 141 U/L (46-116) Total Protein 7.6 g/dL (6.4-8.2) Albumin 3.7 g/dL (3.4-5.0) Albumin/Globulin Ratio 0.9 (1.0-1.7) Stool Occult Blood Positive (NEG) Laboratory Tests Test 09/17/21 09:15 09/17/21 12:00 White Blood Count 8.5 x10^3/uL (4.0-11.0) Red Blood Count 4.96 x10^6/uL (4.30-5.70) Hemoglobin 15.3 g/dL (13.0-17.5) Hematocrit 44.7 % (39.0-53.0) Mean Corpuscular Volume 90 fL (79-100) Mean Corpuscular Hemoglobin 31 pg (25-35) Mean Corpuscular Hemoglobin Concent 34 g/dL (31-37) Red Cell Distribution Width 13.8 % (11.5-14.5) Platelet Count 266 x10^3/uL (140-400) Neutrophils (%) (Auto) 70 % (31-73) Lymphocytes (%) (Auto) 17 % (24-48) Monocytes (%) (Auto) 10 % (0-9) Eosinophils (%) (Auto) 2 % (0-3) Basophils (%) (Auto) 1 % (0-3) Neutrophils # (Auto) 6.0 x10^3/uL (1.8-7.7) Lymphocytes # (Auto) 1.5 x10^3/uL (1.0-4.8) Monocytes # (Auto) 0.9 x10^3/uL (0.0-1.1) Eosinophils # (Auto) 0.1 x10^3/uL (0.0-0.7) Basophils # (Auto) 0.1 x10^3/uL (0.0-0.2) Prothrombin Time 13.3 SEC (11.7-14.0) Prothromb Time International Ratio 1.0 (0.8-1.1) Activated Partial Thromboplast Time 32 SEC (24-38) Sodium Level 142 mmol/L (136-145) Potassium Level 4.0 mmol/L (3.5-5.1) Chloride Level 106 mmol/L (98-107) Carbon Dioxide Level 26 mmol/L (21-32) Anion Gap 10 (6-14) Blood Urea Nitrogen 17 mg/dL (8-26) Creatinine 1.1 mg/dL (0.7-1.3) Estimated GFR (Cockcroft-Gault) 68.1 BUN/Creatinine Ratio 15 (6-20) Glucose Level 100 mg/dL (70-99) Calcium Level 8.9 mg/dL (8.5-10.1) Total Bilirubin 0.5 mg/dL (0.2-1.0) Aspartate Amino Transf (AST/SGOT) 29 U/L (15-37) Alanine Aminotransferase (ALT/SGPT) 52 U/L (16-63) Alkaline Phosphatase 141 U/L (46-116) Total Protein 7.6 g/dL (6.4-8.2) Albumin 3.7 g/dL (3.4-5.0) Albumin/Globulin Ratio 0.9 (1.0-1.7) Stool Occult Blood Positive (NEG) VTE Prophylaxis Ordered VTE Prophylaxis Devices: Yes VTE Pharmacological Prophylaxi: Contraindicated Assessment/Plan Assessment/Plan Blood in stool - x3 episodes, will repeat hemogram. Is on ASA for his recent TIA symptoms. Given no large drop in Hb would favor continuing unless GI recommends otherwise Dizziness - with left leg unsteadiness. Improved. Weakness - left leg. He notes this has been going on over a year and after working with therapy recommended to have a walker. An MRI last month with no acute CVA but some possible demyelination. Ex-smoker - counseled on continued cessation counseling DM2 - A1c was 5.7 last hospital stay. HTN -changed from lisinopril to amlodipine, now on losartan and metoprolol 12.5mg BID hep C in SVR Low back pain -likely musculoskeletal from overuse due to ongoing. FEN - Cardiac diet PPX - SCDs FULL CODE Dispo - observation for blood in stool, serial hemogram Justifications for Admission Other Justification HORTENSIA ANGELES MD September 17, 2021 15:29
[2021-09-17] MEDS ORDERED: ACETAMINOPHEN 325 MG TABLET. PO PRN (15:30)
[2021-09-17] MEDS ORDERED: ONDANSETRON ODT 4 MG TAB.RAPDIS. PO PRN (15:30)
[2021-09-17] MEDS ORDERED: ONDANSETRON PF 4 MG/2 ML VIAL. IVP PRN (15:30)
[2021-09-17] MEDS ORDERED: traMADol 50 MG TABLET PO PRN (15:30)
[2021-09-17 15:35] VITALS: BP 154/75
[2021-09-17] MEDS: LOSARTAN POTASSIUM 50 MG TABLET. PO SCH (16:26)
[2021-09-17] MEDS: METOPROLOL TART IMMED RELEASE 25 MG TABLET. PO SCH ×2 (16:26→20:25)
--- NOTE | 2021-09-17 16:54 | PHYS DOC ---
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 Patient states that he was discharged from the hospital yesterday. He states while in hospital he has received multiple Lovenox injections. He states this morning he had a bloody bowel movement and therefore decided to present to the emergency department for evaluation. He denies any abdominal pain. He denies any chest pain or shortness of breath. He denies any weakness. He has not had any black tarry stools. Review of Systems: Review of Systems: Constitutional: Denies fever or chills. [] Eyes: Denies change in visual acuity. [] HENT: Denies nasal congestion or sore throat. [] Respiratory: Denies cough or shortness of breath. [] Cardiovascular: Denies chest pain or edema. [] GI: Denies abdominal pain, nausea, vomiting, or diarrhea. [] : Denies dysuria. [] Musculoskeletal: Denies back pain or joint pain. [] Integument: Denies rash. [] Neurologic: Denies headache, focal weakness or sensory changes. [] Endocrine: Denies polyuria or polydipsia. [] Lymphatic: Denies swollen glands. [] Psychiatric: Denies depression or anxiety. [] Heart Score: C/O Chest Pain: No Family History: Family History: Noncontributory Current Medications: Metoprolol Losartan Allergies: Allergies: Allergies Coded Allergies Type Severity Reaction Last Updated Verified codeine Allergy Severe hives 07/30/21 Yes Physical Exam: PE: Constitutional: Well developed, well nourished, no acute distress, non-toxic appearance. [] HENT: Normocephalic, atraumatic, bilateral external ears normal, oropharynx moist, no oral exudates, nose normal. [] Eyes: PERRLA, EOMI, conjunctiva normal, no discharge. [] Neck: Normal range of motion, no tenderness, supple, no stridor. [] Cardiovascular:Heart rate regular rhythm, no murmur [] Lungs & Thorax: Bilateral breath sounds clear to auscultation [] Abdomen: Bowel sounds normal, soft, no tenderness, no masses, no pulsatile masses. Rectal: No hemorrhoids. Grossly positive for blood. Skin: Warm, dry, no erythema, no rash. [] Back: No tenderness, no CVA tenderness. [] Extremities: No tenderness, no cyanosis, no clubbing, ROM intact, no edema. [] Neurologic: Alert and oriented X 3, normal motor function, normal sensory function, no focal deficits noted. [] Psychologic: Affect normal, judgement normal, mood normal. [] Current Patient Data: Labs: Laboratory Tests Test 09/17/21 09:15 09/17/21 12:00 White Blood Count 8.5 x10^3/uL (4.0-11.0) Red Blood Count 4.96 x10^6/uL (4.30-5.70) Hemoglobin 15.3 g/dL (13.0-17.5) Hematocrit 44.7 % (39.0-53.0) Mean Corpuscular Volume 90 fL (79-100) Mean Corpuscular Hemoglobin 31 pg (25-35) Mean Corpuscular Hemoglobin Concent 34 g/dL (31-37) Red Cell Distribution Width 13.8 % (11.5-14.5) Platelet Count 266 x10^3/uL (140-400) Neutrophils (%) (Auto) 70 % (31-73) Lymphocytes (%) (Auto) 17 % (24-48) L Monocytes (%) (Auto) 10 % (0-9) H Eosinophils (%) (Auto) 2 % (0-3) Basophils (%) (Auto) 1 % (0-3) Neutrophils # (Auto) 6.0 x10^3/uL (1.8-7.7) Lymphocytes # (Auto) 1.5 x10^3/uL (1.0-4.8) Monocytes # (Auto) 0.9 x10^3/uL (0.0-1.1) Eosinophils # (Auto) 0.1 x10^3/uL (0.0-0.7) Basophils # (Auto) 0.1 x10^3/uL (0.0-0.2) Prothrombin Time 13.3 SEC (11.7-14.0) Prothrombin Time INR 1.0 (0.8-1.1) Activated Partial Thromboplast Time 32 SEC (24-38) Sodium Level 142 mmol/L (136-145) Potassium Level 4.0 mmol/L (3.5-5.1) Chloride Level 106 mmol/L (98-107) Carbon Dioxide Level 26 mmol/L (21-32) Anion Gap 10 (6-14) Blood Urea Nitrogen 17 mg/dL (8-26) Creatinine 1.1 mg/dL (0.7-1.3) Estimated GFR (Cockcroft-Gault) 68.1 BUN/Creatinine Ratio 15 (6-20) Glucose Level 100 mg/dL (70-99) H Calcium Level 8.9 mg/dL (8.5-10.1) Total Bilirubin 0.5 mg/dL (0.2-1.0) Aspartate Amino Transferase (AST) 29 U/L (15-37) Alanine Aminotransferase (ALT) 52 U/L (16-63) Alkaline Phosphatase 141 U/L (46-116) H Total Protein 7.6 g/dL (6.4-8.2) Albumin 3.7 g/dL (3.4-5.0) Albumin/Globulin Ratio 0.9 (1.0-1.7) L Stool Occult Blood Positive (NEG) Laboratory Tests 09/17/21 09:15 Laboratory Tests 09/17/21 09:15 Vital Signs: Vital Signs Date Time Temp Pulse Resp B/P (MAP) Pulse Ox O2 Delivery O2 Flow Rate FiO2 09/17/21 16:26 75 154/75 09/17/21 15:35 97.1 20 96 Room Air 97.1 EKG: EKG: [] EKG shows normal sinus rhythm with a rate of 65. There is a leftward axis. Intervals are normal. No evidence of acute ischemia or infarction. EKG was read interpreted by myself. Radiology/Procedures: Radiology/Procedures: [] Course & Med Decision Making: Course & Med Decision Making Patient remained hemodynamically stable in the emergency department. He was evaluated bedside physical exam. Rectal exam does show gross blood without evidence of hemorrhoid. H&H is of 40 and 14. But given the patient's recent Lovenox injections I have discussed with the hospitalist and will admit to the hospitalist service for observation. Dione Disclaimer: Dione Disclaimer: This electronic medical record was generated, in whole or in part, using a voice recognition dictation system. Departure Departure Impression: Primary Impression: GI bleed Referrals: NO PCP (PCP) MARTHA RICH MD September 17, 2021 16:54
[2021-09-17 19:46] VITALS: BP 152/84
[2021-09-17 23:20] VITALS: BP 128/66
[2021-09-18 03:25] VITALS: BP 120/66
[2021-09-18 05:11] LABS: HEMATOCRIT 45.2 % (39.0-53.0); HEMOGLOBIN 15.3 g/dL (13.0-17.5); RED BLOOD COUNT 4.99 x10^6/uL (4.30-5.70); RED CELL DISTRIBUTION WIDTH 13.8 % (11.5-14.5); WHITE BLOOD COUNT 10.6 x10^3/uL (4.0-11.0)
[2021-09-18 07:00] VITALS: BP 142/73
[2021-09-18] MEDS: LOSARTAN POTASSIUM 50 MG TABLET. PO SCH (08:56)
[2021-09-18] MEDS: METOPROLOL TART IMMED RELEASE 25 MG TABLET. PO SCH (08:57)
[2021-09-18] MEDS ORDERED: ASPIRIN CHEWABLE 81 MG TABLET. PO SCH (09:00)
--- NOTE | 2021-09-18 09:58 | PDOC ---
[employer] PROGRESS NOTE Date of Service DOS: DATE: 09/18/21 TIME: 09:56 Chief Complaint Chief Complaint Blood in stool - x3 episodes, stable repeat hemogram. Is on ASA for his recent TIA symptoms. Given no large drop in Hb would favor continuing unless GI recommends otherwise. Outpatient colonoscopy recommended Dizziness - with left leg unsteadiness. Improved. Weakness - left leg. He notes this has been going on over a year and after working with therapy recommended to have a walker. An MRI last month with no acute CVA but some possible demyelination. Ex-smoker - counseled on continued cessation counseling DM2 - A1c was 5.7 last hospital stay. HTN -changed from lisinopril to amlodipine, now on losartan and metoprolol 12.5mg BID hep C in SVR Low back pain -likely musculoskeletal from overuse due to ongoing. FEN - Cardiac diet PPX - SCDs FULL CODE Dispo - observation for blood in stool, serial hemogram History of Present Illness History of Present Illness Mr Patterson is a 61 yo M w/ PMHx ex-smoker, DM2, hep C in SVR who presents to ED c/o large amounts of bright red blood in his stool at home x1 and x2 episodes in the ED with diaphoresis and lightheadedness. Was admitted for hypertensive urgency and concern for ataxia over month ago and readmitted for acute kidney injury 2 weeks ago and transition from losartan to amlodipine for antihypertensives due to his renal failure. He was admitted third time for concern for side effects from the amlodipine which he stopped and was changed to metoprolol and losartan and returns now. He was on Lovenox for several days as well as aspirin therapy. He notes no history of colonoscopy previously no prior known diagnosis of diverticulosis. No hemorrhoids. WBC 8.5, Hb 15.3, platelets 266, alkaline phosphatase 141 glucose 100 otherwise chemistry panel within normal limits INR 1, PTT 32 fecal occult blood positive 09/18: Hb stable at 15.3. Did have 1 additional bowel movement overnight and little blood streaking in it. He discussed with GI in consultation bedside will be referred for outpatient colonoscopy. He had 1 episode of dizziness overnight notes that he got up very quickly and it remitted almost immediately. Vitals/I&O Vitals/I&O: Vital Signs Date Time Temp Pulse Resp B/P (MAP) Pulse Ox O2 Delivery O2 Flow Rate FiO2 09/18/21 08:57 59 120/66 09/18/21 07:00 97.5 17 96 Room Air 97.5 I & O 09/17/21 09/17/21 09/18/21 15:00 23:00 07:00 Intake Total 300 ml 320 ml Balance 300 ml 320 ml Physical Exam General: Alert, Oriented X3, Cooperative, No acute distress Lungs: Clear, Other Abdomen: Normal bowel sounds, Soft, No tenderness, No hepatosplenomegaly, No masses Extremities: No clubbing, No cyanosis, No edema, Normal pulses, No tenderness/swelling Skin: No rashes, No breakdown, No significant lesion Labs Labs: Laboratory Tests Test 09/17/21 12:00 09/18/21 04:25 Stool Occult Blood Positive (NEG) White Blood Count 10.6 x10^3/uL (4.0-11.0) Red Blood Count 4.99 x10^6/uL (4.30-5.70) Hemoglobin 15.3 g/dL (13.0-17.5) Hematocrit 45.2 % (39.0-53.0) Mean Corpuscular Volume 91 fL (79-100) Mean Corpuscular Hemoglobin 31 pg (25-35) Mean Corpuscular Hemoglobin Concent 34 g/dL (31-37) Red Cell Distribution Width 13.8 % (11.5-14.5) Platelet Count 245 x10^3/uL (140-400) Assessment and Plan Assessmemt and Plan Problems Medical Problems: (1) GI bleed Status: Acute Comment Review of Relevant I have reviewed the following items chase (where applicable) has been applied. Medications: Current Medications Medications (Trade) Dose Ordered Sig/Kristy Route PRN Reason Start Time Stop Time Status Last Admin Dose Admin Aspirin (Aspirin Chewable) 81 mg DAILY PO 09/18/21 09:00 09/18/21 08:56 Losartan Potassium (Cozaar) 50 mg DAILY PO 09/17/21 15:30 09/18/21 08:56 Metoprolol Tartrate (Lopressor) 12.5 mg BID PO 09/17/21 15:30 09/18/21 08:57 Justifications for Admission Other Justification HORTENSIA ANGELES MD September 18, 2021 09:58
--- NOTE | 2021-09-18 09:59 | PDOC3 ---
Discharge Summary Visit Information Date of Admission: September 17, 2021 Date of Discharge: September 18, 2021 Admitting Diagnosis: GI bleed Final Diagnosis Problems Medical Problems: (1) GI bleed Status: Acute Brief Hospital Course Allergies Allergies Coded Allergies Type Severity Reaction Last Updated Verified codeine Allergy Severe hives 07/30/21 Yes Vital Signs Vital Signs Date Time Temp Pulse Resp B/P (MAP) Pulse Ox O2 Delivery O2 Flow Rate FiO2 09/18/21 08:57 59 120/66 09/18/21 07:00 97.5 17 96 Room Air 97.5 Lab Results Laboratory Tests Test 09/17/21 09:15 09/17/21 12:00 09/18/21 04:25 White Blood Count 8.5 x10^3/uL (4.0-11.0) 10.6 x10^3/uL (4.0-11.0) Red Blood Count 4.96 x10^6/uL (4.30-5.70) 4.99 x10^6/uL (4.30-5.70) Hemoglobin 15.3 g/dL (13.0-17.5) 15.3 g/dL (13.0-17.5) Hematocrit 44.7 % (39.0-53.0) 45.2 % (39.0-53.0) Mean Corpuscular Volume 90 fL (79-100) 91 fL (79-100) Mean Corpuscular Hemoglobin 31 pg (25-35) 31 pg (25-35) Mean Corpuscular Hemoglobin Concent 34 g/dL (31-37) 34 g/dL (31-37) Red Cell Distribution Width 13.8 % (11.5-14.5) 13.8 % (11.5-14.5) Platelet Count 266 x10^3/uL (140-400) 245 x10^3/uL (140-400) Neutrophils (%) (Auto) 70 % (31-73) Lymphocytes (%) (Auto) 17 % (24-48) Monocytes (%) (Auto) 10 % (0-9) Eosinophils (%) (Auto) 2 % (0-3) Basophils (%) (Auto) 1 % (0-3) Neutrophils # (Auto) 6.0 x10^3/uL (1.8-7.7) Lymphocytes # (Auto) 1.5 x10^3/uL (1.0-4.8) Monocytes # (Auto) 0.9 x10^3/uL (0.0-1.1) Eosinophils # (Auto) 0.1 x10^3/uL (0.0-0.7) Basophils # (Auto) 0.1 x10^3/uL (0.0-0.2) Prothrombin Time 13.3 SEC (11.7-14.0) Prothromb Time International Ratio 1.0 (0.8-1.1) Activated Partial Thromboplast Time 32 SEC (24-38) Sodium Level 142 mmol/L (136-145) Potassium Level 4.0 mmol/L (3.5-5.1) Chloride Level 106 mmol/L (98-107) Carbon Dioxide Level 26 mmol/L (21-32) Anion Gap 10 (6-14) Blood Urea Nitrogen 17 mg/dL (8-26) Creatinine 1.1 mg/dL (0.7-1.3) Estimated GFR (Cockcroft-Gault) 68.1 BUN/Creatinine Ratio 15 (6-20) Glucose Level 100 mg/dL (70-99) Calcium Level 8.9 mg/dL (8.5-10.1) Total Bilirubin 0.5 mg/dL (0.2-1.0) Aspartate Amino Transf (AST/SGOT) 29 U/L (15-37) Alanine Aminotransferase (ALT/SGPT) 52 U/L (16-63) Alkaline Phosphatase 141 U/L (46-116) Total Protein 7.6 g/dL (6.4-8.2) Albumin 3.7 g/dL (3.4-5.0) Albumin/Globulin Ratio 0.9 (1.0-1.7) Stool Occult Blood Positive (NEG) Laboratory Tests Test 09/17/21 12:00 09/18/21 04:25 Stool Occult Blood Positive (NEG) White Blood Count 10.6 x10^3/uL (4.0-11.0) Red Blood Count 4.99 x10^6/uL (4.30-5.70) Hemoglobin 15.3 g/dL (13.0-17.5) Hematocrit 45.2 % (39.0-53.0) Mean Corpuscular Volume 91 fL (79-100) Mean Corpuscular Hemoglobin 31 pg (25-35) Mean Corpuscular Hemoglobin Concent 34 g/dL (31-37) Red Cell Distribution Width 13.8 % (11.5-14.5) Platelet Count 245 x10^3/uL (140-400) Brief Hospital Course Mr Patterson is a 61 yo M w/ PMHx ex-smoker, DM2, hep C in SVR who presents to ED c/o large amounts of bright red blood in his stool at home x1 and x2 episodes in the ED with diaphoresis and lightheadedness. Was admitted for hypertensive urgency and concern for ataxia over month ago and readmitted for acute kidney injury 2 weeks ago and transition from losartan to amlodipine for a ntihypertensives due to his renal failure. He was admitted third time for concern for side effects from the amlodipine which he stopped and was changed to metoprolol and losartan and returns now. He was on Lovenox for several days as well as aspirin therapy. He notes no history of colonoscopy previously no prior known diagnosis of diverticulosis. No hemorrhoids. WBC 8.5, Hb 15.3, platelets 266, alkaline phosphatase 141 glucose 100 otherwise chemistry panel within normal limits INR 1, PTT 32 fecal occult blood positive 09/18: Hb stable at 15.3. Did have 1 additional bowel movement overnight and little blood streaking in it. He discussed with GI in consultation bedside will be referred for outpatient colonoscopy. He had 1 episode of dizziness overnight notes that he got up very quickly and it remitted almost immediately. Consults: GI Blood in stool - x3 episodes, stable repeat hemogram. Is on ASA for his recent TIA symptoms. Given no large drop in Hb would favor continuing unless GI recommends otherwise. Outpatient colonoscopy recommended Dizziness - with left leg unsteadiness. Improved. Weakness - left leg. He notes this has been going on over a year and after working with therapy recommended to have a walker. An MRI last month with no acute CVA but some possible demyelination. Ex-smoker - counseled on continued cessation counseling DM2 - A1c was 5.7 last hospital stay. HTN -changed from lisinopril to amlodipine, now on losartan and metoprolol 12.5mg BID hep C in SVR Low back pain -likely musculoskeletal from overuse due to ongoing. Greater than 30 minutes spent on d/c Discharge Information Condition at Discharge: Improved Follow Up: Weeks (1) Disposition/Orders: D/C to Home Scheduled Aspirin (Aspirin) 81 Mg Tab.chew, 1 TAB PO DAILY for prophylaxis, #30 (Reported) Entered as Reported by: CHEMA LONG on 06/26/211736 Last Action: Continued on 09/17/211528 by HORTENSIA ANGELES MD Losartan Potassium (Cozaar ) 50 Mg Tablet, 50 MG PO DAILY for HTN for 30 Days, #30 Ref 5 Prescribed by: HORTENSIA ANGELES MD on 09/16/211311 Last Action: Continued on 09/17/211528 by HORTENSIA ANGELES MD Metoprolol Tartrate (Metoprolol Tartrate) 25 Mg Tablet, 12.5 MG PO BID for HTN/LAZCANO for 30 Days, #30 Ref 5 Prescribed by: HORTENSIA ANGELES MD on 09/16/211311 Last Action: Continued on 09/17/211528 by HORTENSIA ANGELES MD Scheduled PRN Tramadol Hcl (Tramadol Hcl) 50 Mg Tablet, 50 MG PO PRN BID PRN for PAIN for 6 Days, #12 Prescribed by: HORTENSIA ANGELES MD on 09/05/21 0855 Last Action: Continued on 09/17/211528 by HORTENSIA ANGELES MD Discontinued Medications Amlodipine Besylate (Amlodipine Besylate) 5 Mg Tablet, 5 MG PO DAILY for HTN for 30 Days, #30 Ref 5 Prescribed by: HORTENSIA ANGELES MD on 09/05/21 0853 Cyclobenzaprine Hcl (Cyclobenzaprine Hcl) 10 Mg Tablet, 10 MG PO PRN BID PRN for MUSCLE SPASMS for 6 Days, #12 Prescribed by: HORTENSIA ANGELES MD on 09/05/21 0853 Justicifation of Admission Dx: Justifications for Admission: Justification of Admission Dx: N/A HORTENSIA ANGELES MD September 18, 2021 09:59
[2021-09-18 11:00] VITALS: BP 144/74
--- NOTE | 2021-09-18 11:17 | PDOC2 ---
GI CONSULT Date of Service: DATE: 09/18/21 TIME: 11:08 Reason For Consult: bright red blood per rectum x 3 HPI: HPI: 61 y/o male admitted through ER. Had a normal stool at home yesterday and noted red blood on toilet tissue. Recurred here three times - once w/ loose brown stool surrounded by red blood, latest stool was formed and brown w/ red blood on tissue. Per nurse, shift lab technician reported "hemorrhoid bleeding." No reflux/heartburn, dysphagia, n/v, abd pain, chronic diarrhea or constipation, change in appetite, or melena. Reports 18 pound weight loss since 09/04/21. Might have had some dizziness yesterday. No previous EGD or colonoscopy. H/o Hep C treated by PCP 20 years ago w/ shots and pills. No GB, pancreas, or PUD history. On ASA 81mg QD since recent TIA symptoms. PMH: PMH: HTN, ?DM (he denies), nephrolithiasis, rhabdo, JUSTIN, ?TIA, COVID traumatic left finger amputation, removal of fatty tumor FH: Family History: Cancer (uncle - pancreatic, grandfather - unknown kind), CAD Social History: Smoke: Quit ALCOHOL: other (none for 20 years) Drugs: None ROS: GEN: Denies fevers, chills, sweats HEENT: Denies blurred vision, sore throat CV: Denies chest pain RESP: Denies shortness of air, cough GI: Per HPI : Denies hematuria, dysuria ENDO: +weight loss NEURO: +dizziness MSK: Denies weakness, joint pain/swelling SKIN: Denies jaundice, pruritus Vitals: Vitals: Vital Signs Date Time Temp Pulse Resp B/P (MAP) Pulse Ox O2 Delivery O2 Flow Rate FiO2 09/18/21 08:57 59 120/66 09/18/21 08:00 Room Air 09/18/21 07:00 97.5 17 96 97.5 Labs: Labs: Laboratory Tests Test 09/17/21 12:00 09/18/21 04:25 Stool Occult Blood Positive (NEG) White Blood Count 10.6 x10^3/uL (4.0-11.0) Red Blood Count 4.99 x10^6/uL (4.30-5.70) Hemoglobin 15.3 g/dL (13.0-17.5) Hematocrit 45.2 % (39.0-53.0) Mean Corpuscular Volume 91 fL (79-100) Mean Corpuscular Hemoglobin 31 pg (25-35) Mean Corpuscular Hemoglobin Concent 34 g/dL (31-37) Red Cell Distribution Width 13.8 % (11.5-14.5) Platelet Count 245 x10^3/uL (140-400) Allergies: Coded Allergies: codeine (Verified Allergy, Severe, hives, 07/30/21) Medications: Current Medications Medications (Trade) Dose Ordered Sig/Kristy Route PRN Reason Start Time Stop Time Status Last Admin Dose Admin Aspirin (Aspirin Chewable) 81 mg DAILY PO 09/18/21 09:00 09/18/21 08:56 Losartan Potassium (Cozaar) 50 mg DAILY PO 09/17/21 15:30 09/18/21 08:56 Metoprolol Tartrate (Lopressor) 12.5 mg BID PO 09/17/21 15:30 09/18/21 08:57 PE: GEN: NAD HEENT: Atraumatic, PERRL LUNGS: CTAB HEART: RRR ABD: NABS, S/ND/NT EXTREMITY: No edema SKIN: No rashes, no jaundice NEURO/PSYCH: A & O 3 A/P: A/P: Rectal bleeding - normal Hgb, +Hemoccult CRC screen - none -- ?hemorrhoid bleeding - labs and vitals stable Okay for regular diet, to continue ASA, and DC soon per primary. We'll contact to schedule outpt colonoscopy. VALENTIN BENÍTEZ September 18, 2021 11:17
--- NOTE | 2021-09-18 12:45 | NUR ---
Discharge instructions reviewed with patient, patient voices understanding et denies questions or concerns at this time. Saline lock removed with cannula intact et monitor technician removed from patient. Patient escorted to main entrance to vehicle driven by facility transport for ride home. All belongings taken with patient at time of discharge.
== END 2021-09-18 12:45 | disposition home or self-care (01) ==
LOC: ER 08:12 → ED HOLD 12:10 → 6 SOUTH 15:31
PROVIDERS: ADMIT Internal Medicine; ATTEND Internal Medicine
DX: K92.2 Gastrointestinal hemorrhage, unspecified (principal); I10 Essential (primary) hypertension; N17.9 Acute kidney failure, unspecified; R42 Dizziness and giddiness; R53.1 Weakness; E11.9 Type 2 diabetes mellitus without complications; B19.20 Unspecified viral hepatitis C without hepatic coma; K21.9 Gastro-esophageal reflux disease without esophagitis; M54.50 Low back pain, unspecified; G45.9 Transient cerebral ischemic attack, unspecified; K64.9 Unspecified hemorrhoids; N20.0 Calculus of kidney; Z79.01 Long term (current) use of anticoagulants; Z79.82 Long term (current) use of aspirin; Z87.891 Personal history of nicotine dependence; Z79.899 Other long term (current) drug therapy; Z98.890 Other specified postprocedural states; Z86.19 Personal history of other infectious and parasitic diseases
CPT/HCPCS: 36415; 80053; 82274; 85025; 85027; 85610; 85730; 86850; 86900; 86901; 93005; 99284; G0378; G0379